=== PATIENT | male | born 1945 | race Caucasian/White ===

== ENCOUNTER 2021-11-16 14:17 | Outpatient (CLI) | payer MEDICARE, SELFPAY ==
--- NOTE | ~2021-11-16 | XR_ITS ---
XR shoulder LT min 2V DATE: 11/16/2021 14:50 INDICATION: Left shoulder pain TECHNIQUE: 4 views COMPARISON: None FINDINGS: No fracture or dislocation, periosteal reaction or bone destruction or abnormal soft tissue calcification. Normal alignment at the acromioclavicular and glenohumeral joints. Degenerative spurr ing of the thoracic spine. Aortic arch calcification. IMPRESSION: No significant abnormality of the left shoulder Reviewed, dictated and finalized at location A. 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
--- NOTE | ~2021-11-16 | XR_ITS ---
XR chest 2V DATE: 11/16/2021 14:50 INDICATION: Dyspnea. Left shoulder pain. TECHNIQUE: PA and lateral views COMPARISON: 09/29/2014 2 view chest FINDINGS: Normal heart size. Aortic calcification and mild unfolding. No hilar or mediastinal enlarge ment. No pulmonary infiltrate or consolidation, pleural effusion or pulmonary vascular congestion or pneumo thorax. There is degenerative spurring and mild dextro scoliosis of the thoracic spine. Diffuse osteopenia. IMPRESSION: No active cardiopulmonary disease Aortic atherosclerosis Reviewed, dictated and finalized at location A. 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
== END 2021-11-16 14:18 | disposition home or self-care (01) ==
PROVIDERS: PCP Internal Medicine; Visit Provider Internal Medicine
DX: R06.00 Dyspnea, unspecified (principal); M25.512 Pain in left shoulder
CPT/HCPCS: 71046; 73030

== ENCOUNTER 2024-04-30 10:21 | Outpatient (NON) | payer MEDICARE, SELFPAY ==
[2024-04-30 10:31] LABS: Hematocrit 37.7 % (37.0-46.0); Hemoglobin 13.5 g/dL (12.4-15.3); Mean Corpuscular HGB Conc 35.8 g/dL (32-36); Mean Corpuscular Hemoglobin 30.2 pg (27.0-31.0); Mean Corpuscular Volume 84.3 fL (78.0-102.0); Mean Platelet Volume 11.3 fl (8.7-11.0); Platelet Count Result 179 K/mm3 (150-420); Red Blood Count 4.47 M/mm3 (4.70-6.10); Red Cell Distribution Width 12.6 % (11.6-14.4); White Blood Count 8.7 K/mm3 (4.8-10.8)
[2024-04-30 10:53] LABS: Alanine Aminotransferase 26 U/L (16-63); Albumin Level 4.3 g/dL (3.4-5.0); Alkaline Phosphatase 65 U/L (46-116); Anion Gap 12 mmol/L (4-12); Aspartate Amino Transferase 29 U/L (15-37); Bilirubin,Total 1.1 mg/dL (0.00-1.00); Blood Urea Nitrogen 10 mg/dL (7-18); Calcium 9.4 mg/dL (8.5-10.1); Carbon Dioxide 26 mmol/L (21-32); Chloride 100 mmol/L (98-108); Creatine Kinase 471 U/L (39-308); Estimated Glomerular Filt Rate 56; Glucose 263 mg/dL (70-99); NT Pro B Type Natriuretic Pept 1003 pg/mL (0-450); Osmolality Calculated 294 mOsm/kg (285-295); Potassium 3.7 mmol/L (3.5-5.1); Sodium 138 mmol/L (136-145); Total Protein 7.9 g/dL (6.4-8.2); Troponin I 6.8 ng/L (0.00-60.4)
== END 2024-04-30 10:22 | disposition home or self-care (01) ==
LOC: CHSLAB 10:24
PROVIDERS: Visit Provider Internal Medicine
DX: R07.9 Chest pain, unspecified (principal); R06.00 Dyspnea, unspecified
CPT/HCPCS: 36415; 80053; 82550; 82553; 83880; 84484; 85027

== ENCOUNTER 2025-01-05 11:31 | Inpatient (IN) | payer MEDICARE, SELFPAY ==
[2025-01-05] VITALS (7 sets, daily range): BP systolic 172–178; BP diastolic 74–94; PULSE 79–88; RESP 16–20; TEMP 36.6–36.8; O2SAT 97–98; BMI 23.4
--- NOTE | ~2025-01-05 | CT_ITS ---
EXAMINATION: CT brain wo con DATE: 01/05/2025 12:40 INDICATION: Altered mental status. TECHNIQUE: Computed tomography (CT) of the head was performed without intravenous contrast. The mA wa s adjusted according to patient size. Iterative reconstruction technique was employed. The dose-lengt h product was 605.33 mGy-cm. COMPARISON: None FINDINGS: There is no intracranial hemorrhage, acute infarction, or abnormal intracranial mass lesion . The ventricles are normal in size. The orbits are normal. There is mild mucosal thickening in the p aranasal sinuses. The mastoid air cells are normal. IMPRESSION: 1. Normal brain. Reviewed, dictated and finalized at location B. IMPRESSION: 1. Normal brain.
--- NOTE | 2025-01-05 11:38 | ED_ITS ---
HPI - Altered Mental Status General Chief Complaint: Altered Mental Status Stated Complaint: altered mental status Time Seen by Provider: 01/05/25 11:38 Source: family () Mode of arrival: ambulatory Limitations: altered mental status History of Present Illness HPI narrative: 79 year old male is brought to the Emergency Department by . states patient last known well was yesterday morning. She left to go OOT and when she returned last evening he had not taken his medication and does not appear to have eaten anything. Patient is oriented to self, otherwise confused. states he is NIDDM and takes Oxycontin regularly for back pain. States it appears he has not taken any off his medications. She states they do not monitor his blood glucose at home. Patient denies pain. states he vomited once and had diarrhea recently. MD complaint: altered mental status Onset (ago): day(s) (1) Timing confirmed by: spouse Severity: moderate Consistency of symptoms: constant Context: diabetes Associated symptoms: denies other symptoms Related Data Home Medications ?Medication ?Instructions ?Recorded ?Confirmed ?Last Taken ?Type alprazolam 0.25 mg tablet 0.25 mg PO BID PRN anxiety 01/05/25 01/05/25 Unknown History aripiprazole 5 mg tablet 5 mg PO HS 01/05/25 01/05/25 Unknown History atorvastatin 40 mg tablet 40 mg PO DAILY 01/05/25 01/05/25 Unknown History hydroxyzine HCl 25 mg tablet 25 mg PO TID 01/05/25 01/05/25 Unknown History metformin 500 mg tablet,extended 500 mg PO BID 01/05/25 01/05/25 Unknown History release 24 hr ondansetron HCl 4 mg tablet 4 mg PO TID PRN nausea and vomiting 01/05/25 01/05/25 Unknown History oxycodone-acetaminophen 10 mg-325 1 tablet PO QID PRN pain 01/05/25 01/05/25 Unknown History mg tablet pantoprazole 40 mg tablet,delayed 40 mg PO DAILY 01/05/25 01/05/25 Unknown History release pregabalin 200 mg capsule 200 mg PO TID 01/05/25 01/05/25 Unknown History propranolol 60 mg capsule,24 60 mg PO HS 01/05/25 01/05/25 Unknown History hr,extended release temazepam 15 mg capsule 15 mg PO HS PRN sleep 01/05/25 01/05/25 Unknown History Allergies Allergy/AdvReac Type Severity Reaction Status Date / Time atenolol Allergy Unknown Unknown Verified 01/05/25 12:29 fluoxetine Allergy Unknown Unknown Verified 01/05/25 12:29 meloxicam Allergy Unknown Unknown Verified 01/05/25 12:29 nortriptyline Allergy Unknown Unknown Verified 01/05/25 12:29 omeprazole Allergy Unknown Unknown Verified 01/05/25 12:29 Review of Systems 2 Review of Systems: All systems reviewed & are unremarkable except as noted in HPI and below ROS unobtainable: Yes unobtainable due to mental status (ROS unreliable due to mental status) Constitutional: Constitutional: Reports as per HPI, Denies chills, Denies fever(s) and Denies weakness Eyes: Eyes: Reports as per HPI, Denies change in vision and Denies photophobia ENT: Reports system reviewed and no additional complaints, except as documented Cardiovascular: Cardiovascular: Reports as per HPI and Denies chest pain Respiratory: Respiratory: Reports as per HPI, Denies cough and Denies dyspnea Gastrointestinal: Gastrointestinal: Reports as per HPI, Reports diarrhea and Reports vomiting Genitourinary: Genitourinary: Reports no additional male genitourinary complaints and Denies dysuria Musculoskeletal: Musculoskeletal: Reports no additional musculoskeletal complaints Integumentary/Breasts: Skin/Breast: Reports system reviewed and no additional complaints, except as docu Neurologic: Reports system reviewed and no additional complaints, except as documented, Reports confusion and Denies focal weakness Psychiatric: Psychiatric: Reports no additional psychiatric complaints Endocrine: Endocrine: Reports no additional endocrine complaints Hematologic/Lymphatic: Hematologic/Lymphatic: Reports no additional hematologic/lymphatic complaints Allergic/Immunologic: Allergic/Immunologic: Reports no additional allergic/immunologic complaints [facility] Family History Family History Father Diabetes mellitus Hypertension Family history of arthritis Family history of malignant neoplasm Family history of lung cancer Mother Family history of diabetes mellitus in first degree relative Family history of cardiovascular disease Sibling Patient's sister is Social History Social History Smoking packs per day: 1 Smoking cigarettes per day: 20.0 Years smoked: 40 Smoking pack-years: 40.00 Smoking status: Former smoker Tobacco type: cigarettes Second hand tobacco smoke exposure: No Smoking end date: 01/05/05 Alcohol intake: never Substance use: never Substance use type: does not use Spiritual care concerns: No Exam 2 Const: General: no acute distress, alert and confusion Nutritional Appearance: well nourished Limitations: altered mental status Other: oriented to self HENMT: Head: normal to inspection Ears: external ears normal F edward/Nose/Sinus: Normal external nose present Face and sinus: normal facial exam Mouth: Yes Normal oral and palatal mucosa present Teeth and gingiva: dentition normal Throat: posterior oropharynx normal Eyes: Conjunctivae: conjunctivae normal Pupils: Equal, round and reactive pupils present EOM: EOMs intact bilaterally Direct Ophthalmoscopy: no photophobia Neck: Neck: normal visual inspection and no meningeal signs Chest: Chest palpation & inspection: normal inspection of the chest and no tenderness Resp: Effort & Inspection: normal respiratory effort Auscultation: clear to auscultation bilaterally Cardio: Rate: regular rate Rhythm: regular rhythm Heart sounds: Murmur heart sound present GI: Inspection: non-distended GI Palp: Yes Soft to palpation, No Tenderness to palpation present (GI), No Guarding due to palpation present (GI) and No Palpable mass present Auscultation: normal bowel sounds : General: Yes bladder normal to palpation Back/Spine/Pelvis: Back: no CVA tenderness Skin: General skin exam: normal color Rashes: no rashes Wounds: no wounds Neuro: General: moves all extremities, no meningeal signs, no focal motor deficits and CN's II-XI intact bilaterally Cranial nerves: Yes Nystagmus not present Speech: normal speech Gait exam (Neuro): Normal gait present O ther: oriented x 1 Extrem: General: normal to inspection and no clubbing, cyanosis or edema Course Course Emergency Course: 79 y/o male is brought to the ED by with AMS. LKW 8 am yesterday. PE: oriented to self, o/w no focal deficit. 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 NS w/o. (1415) Discussed with Geovani Pemberton. Will admit. Vital Signs Vital signs: Vital Signs Temperature 36.8 C 01/05/25 11:34 Pulse Rate 88 01/05/25 11:34 Respiratory Rate 16 01/05/25 11:34 Blood Pressure 178/94 H 01/05/25 11:34 Pulse Oximetry 97 01/05/25 11:34 Oxygen Delivery Room Air 01/05/25 11:34 Temperature 36.6 C 01/05/25 16:00 Pulse Rate 79 01/05/25 16:00 Respiratory Rate 18 01/05/25 16:00 Blood Pressure 176/74 H 01/05/25 16:00 Pulse Oximetry 98 01/05/25 16:00 Oxygen Delivery Room Air 01/05/25 16:00 MDM - Altered Mental Status Lab Data 01/05/25 12:08 01/05/25 14:43 Labs: Lab Results 01/05/25 01/05/25 01/05/25 Range/Units 11:59 12:00 12:08 WBC 10.2 (4.8-10.8) K/mm3 RBC 4.72 (4.70-6.10) M/mm3 Hgb 13.8 (12.4-15.3) g/dL Hct 39.8 (37.0-46.0) % MCV 84.3 (78.0-102.0) fL MCH 29.2 (27.0-31.0) pg MCHC 34.7 (32-36) g/dL RDW 13.2 (11.6-14.4) % Plt Count 282 (150-420) K/mm3 MPV 10.3 (8.7-11.0) fl Immature Gran % (Auto) 0.4 H (0.0-0.0) % Neut % (Auto) 77.1 H (50.0-70.0) % Lymph % (Auto) 14.4 L (18.0-42.0) % Leon % (Auto) 7.5 (2.0-11.0) % Eos % (Auto) 0.3 L (1.0-6.0) % Baso % (Auto) 0.3 (0.0-1.0) % Lymph # (Auto) 1.47 (1.10-4.50) K/mm3 Leon # (Auto) 0.76 (0.10-0.90) K/mm3 Eos # (Auto) 0.03 (0.02-0.50) K/mm3 Baso # (Auto) 0.03 (0.00-0.10) K/mm3 Abs Immat Gran (auto) 0.04 H (0.00-0.00) K/mm3 Absolute Neuts (auto) 7.86 H (1.70-7.20) K/mm3 Absolute Nucleated RBC 0.00 (0.00-0.00) K/mm3 Nucleated RBC % 0.0 (0-0.0) % Methemoglobin (0-1.5) % Sodium 142 (136-145) mmol/L Potassium 3.5 (3.5-5.1) mmol/L Chloride 102 (98-108) mmol/L Carbon Dioxide 21 (21-32) mmol/L Anion Gap 19 H (4-12) mmol/L BUN 16 (7-18) mg/dL Creatinine 1.44 H (0.70-1.30) mg/dL Estim Creat Clear Calc 42 ml/min Estimated GFR 47 L (59 - ) Glucose 375 H (70-99) mg/dL Hemoglobin A1c 8.4 H (<5.7) % Calculated Osmolality 310 H (285-295) mOsm/kg Lactic Acid 4.0 H (0.4-2.0) mmol/L Calcium 9.8 (8.5-10.1) mg/dL Total Bilirubin 1.3 H (0.00-1.00) mg/dL AST 19 (15-37) U/L ALT 26 (16-63) U/L Alkaline Phosphatase 98 (46-116) U/L Troponin I 9.2 (0.00-60.4) ng/L Total Protein 8.2 (6.4-8.2) g/dL Albumin 4.4 (3.4-5.0) g/dL Urine Color Yellow (Yellow) Urine Appearance Clear (Clear) Urine pH 5.5 (5.0-8.0) Ur Specific [place] 1.025 H (1.010-1.020) Urine Protein 1+ H (Negative) Urine Glucose (UA) Negative (Negative) Urine Ketones 2+ H (Negative) Ur Blood (Man) 1+ H (Negative) Urine Nitrate Negative (Negative) Urine Bilirubin Negative (Negative) Urine Urobilinogen 0.2 (0.2-1.0) mg/dL Ur Leukocyte Esterase Negative (Negative) Urine RBC 6-10 H (0-2) /hpf Urine WBC 4-6 H (0-3) /hpf Urine Bacteria Rare (None) /hpf Urine Opiates Screen Negative (Negative) Urine Methadone Screen Negative (Negative) Ur Barbiturates Screen Negative (Negative) Ur Phencyclidine Scrn Negative (Negative) Ur Amphetamine Screen Negative (Negative) U Benzodiazepines Scrn Negative (Negative) Urine Cocaine Screen Negative (Negative) U Cannabinoids Screen Negative (Negative) Influenza A (RT-PCR) (Negative) Influenza B (RT-PCR) (Negative) RSV (RT-PCR) (Negative) SARS-CoV-2 RNA (RT-PCR) (Negative) 01/05/25 01/05/25 Range/Units 12:09 13:31 WBC (4.8-10.8) K/mm3 RBC (4.70-6.10) M/mm3 Hgb (12.4-15.3) g/dL Hct (37.0-46.0) % MCV (78.0-102.0) fL MCH (27.0-31.0) pg MCHC (32-36) g/dL RDW (11.6-14.4) % Plt Count (150-420) K/mm3 MPV (8.7-11.0) fl Immature Gran % (Auto) (0.0-0.0) % Neut % (Auto) (50.0-70.0) % Lymph % (Auto) (18.0-42.0) % Leon % (Auto) (2.0-11.0) % Eos % (Auto) (1.0-6.0) % Baso % (Auto) (0.0-1.0) % Lymph # (Auto) (1.10-4.50) K/mm3 Leon # (Auto) (0.10-0.90) K/mm3 Eos # (Auto) (0.02-0.50) K/mm3 Baso # (Auto) (0.00-0.10) K/mm3 Abs Immat Gran (auto) (0.00-0.00) K/mm3 Absolute Neuts (auto) (1.70-7.20) K/mm3 Absolute Nucleated RBC (0.00-0.00) K/mm3 Nucleated RBC % (0-0.0) % Methemoglobin 0.2 (0-1.5) % Sodium (136-145) mmol/L Potassium (3.5-5.1) mmol/L Chloride (98-108) mmol/L Carbon Dioxide (21-32) mmol/L Anion Gap (4-12) mmol/L BUN (7-18) mg/dL Creatinine (0.70-1.30) mg/dL Estim Creat Clear Calc ml/min Estimated GFR (59 - ) Glucose (70-99) mg/dL Hemoglobin A1c (<5.7) % Calculated Osmolality (285-295) mOsm/kg Lactic Acid (0.4-2.0) mmol/L Calcium (8.5-10.1) mg/dL Total Bilirubin (0.00-1.00) mg/dL AST (15-37) U/L ALT (16-63) U/L Alkaline Phosphatase (46-116) U/L Troponin I (0.00-60.4) ng/L Total Protein (6.4-8.2) g/dL Albumin (3.4-5.0) g/dL Urine Color (Yellow) Urine Appearance (Clear) Urine pH (5.0-8.0) Ur Specific [place] (1.010-1.020) Urine Protein (Negative) Urine Glucose (UA) (Negative) Urine Ketones (Negative) Ur Blood (Man) (Negative) Urine Nitrate (Negative) Urine Bilirubin (Negative) Urine Urobilinogen (0.2-1.0) mg/dL Ur Leukocyte Esterase (Negative) Urine RBC (0-2) /hpf Urine WBC (0-3) /hpf Urine Bacteria (None) /hpf Urine Opiates Screen (Negative) Urine Methadone Screen (Negative) Ur Barbiturates Screen (Negative) Ur Phencyclidine Scrn (Negative) Ur Amphetamine Screen (Negative) U Benzodiazepines Scrn (Negative) Urine Cocaine Screen (Negative) U Cannabinoids Screen (Negative) Influenza A (RT-PCR) Negative (Negative) Influenza B (RT-PCR) Negative (Negative) RSV (RT-PCR) Negative (Negative) SARS-CoV-2 RNA (RT-PCR) Negative (Negative) ABG Data ABG results: 01/05/25 13:31 Puncture Site Left radial ABG pH 7.49 H ABG pCO2 26.1 L ABG pO2 88.5 H ABG PO2/FiO2 Ratio Not Reportable ABG HCO3 19.5 L ABG O2 Saturation 96.3 ABG O2 Content 18.6 ABG Base Excess -2.3 L A-a Gradient Not Reportable Oxyhemoglobin 95.7 Carboxyhemoglobin 0.4 Reduced Hemoglobin 3.7 H O2 Delivery Device Room air O2 Liters/Min 0.0 Discharge Plan Discharge Clinical Impression: Hyperosmolar hyperglycemic state (HHS), Altered mental status, Acidosis, lactic Patient Disposition: [facility] Condition: Stable Time of Disposition: 14:26 Quality Stroke Date of last known normal: 01/04/25 Time of last known normal: 08:00 Stroke Scale Stroke Scale 1: 1a Level of consciousness: alert-0 1b Level of consciousness questions: answers none correctly-2 1c Level of consciousness commands: obeys both correctly-0 2 Best gaze: normal-0 3 Visual: no visual loss-0 4 Facial palsy: normal-0 5a Motor: left arm: no drift-0 5b Motor: right arm: no drift-0 6a Motor: left leg: no drift-0 6b Motor: right leg: no drift-0 7 Limb ataxia: absent-0 8 Sensory: normal-0 9 Best language: no aphasia-0 10 Dysarthria: normal-0 11 Extinction and inattention: no abnormality-0 Level:: 2
--- NOTE | 2025-01-05 11:42 | ECG_ITS ---
Test Date: 2025-01-05 12:04:11 Measurements Intervals [place] Rate: 86 P: 63 VA: 146 QRS: 64 QRSD: 86 T: 27 QT: 396 QTc: 474 Interpretive Statements SINUS RHYTHM WITH OCCASIONAL SUPRAVENTRICULAR PREMATURE COMPLEXES NONSPECIFIC T-WAVE ABNORMALITY No previous ECG available for comparison Electronically Signed On 01-05-2025 14:03:08 CDT by Ramón Harris M.D.
[2025-01-05 12:13] LABS: Basophils Absolute Auto 0.03 K/mm3 (0.00-0.10); Basophils Percent Auto 0.3 % (0.0-1.0); Eosinophils Absolute Auto 0.03 K/mm3 (0.02-0.50); Eosinophils Percent Auto 0.3 % (1.0-6.0); Hematocrit 39.8 % (37.0-46.0); Hemoglobin 13.8 g/dL (12.4-15.3); Immature Granulocyte Absolute 0.04 K/mm3 (0.00-0.00); Immature Granulocyte Percent A 0.4 % (0.0-0.0); Lymphocytes Absolute Auto 1.47 K/mm3 (1.10-4.50); Lymphocytes Percent Auto 14.4 % (18.0-42.0); Mean Corpuscular HGB Conc 34.7 g/dL (32-36); Mean Corpuscular Hemoglobin 29.2 pg (27.0-31.0); Mean Corpuscular Volume 84.3 fL (78.0-102.0); Mean Platelet Volume 10.3 fl (8.7-11.0); Monocytes Absolute Auto 0.76 K/mm3 (0.10-0.90); Monocytes Percent Auto 7.5 % (2.0-11.0); Neutrophils Absolute Auto 7.86 K/mm3 (1.70-7.20); Neutrophils Percent Auto 77.1 % (50.0-70.0); Platelet Count Result 282 K/mm3 (150-420); Red Blood Count 4.72 M/mm3 (4.70-6.10); Red Cell Distribution Width 13.2 % (11.6-14.4); White Blood Count 10.2 K/mm3 (4.8-10.8)
--- NOTE | 2025-01-05 12:16 | PC.NURSE ---
Covid culture sent to lab
[2025-01-05 12:21] LABS: Add Urine Microscopic? YES; Appearance Urine Clear (Clear); Bilirubin Urine Negative (Negative); Blood Urine 1+ (Negative); Color Urine Yellow (Yellow); Glucose Urine UA Negative (Negative); Ketones Urine 2+ (Negative); Leukocyte Esterase Ur Negative (Negative); Nitrate Urine Negative (Negative); Protein Urine 1+ (Negative); Specific Grav Ur 1.025 (1.010-1.020); Urobilinogen Urine 0.2 mg/dL (0.2-1.0); pH Urine 5.5 (5.0-8.0)
[2025-01-05 12:25] LABS: Bacteria Urine Rare /hpf
[2025-01-05 12:37] LABS: Amphetamine Screen Urine Negative (Negative); Barbiturate Screen Urine Negative (Negative); Benzodiazepines Screen Urine Negative (Negative); Cannabinoid Screen Urine Negative (Negative); Cocaine Screen Urine Negative (Negative); Methadone Screen Urine Negative (Negative); Opiate Screen Urine Negative (Negative); Phencyclidine Screen Urine Negative (Negative)
[2025-01-05 12:48] LABS: Alanine Aminotransferase 26 U/L (16-63); Albumin Level 4.4 g/dL (3.4-5.0); Alkaline Phosphatase 98 U/L (46-116); Anion Gap 19 mmol/L (4-12); Aspartate Amino Transferase 19 U/L (15-37); Bilirubin,Total 1.3 mg/dL (0.00-1.00); Blood Urea Nitrogen 16 mg/dL (7-18); Calcium 9.8 mg/dL (8.5-10.1); Carbon Dioxide 21 mmol/L (21-32); Chloride 102 mmol/L (98-108); Estimated CRCL calculation 42 ml/min; Estimated Glomerular Filt Rate 47; Glucose 375 mg/dL (70-99); Osmolality Calculated 310 mOsm/kg (285-295); Potassium 3.5 mmol/L (3.5-5.1); Sodium 142 mmol/L (136-145); Total Protein 8.2 g/dL (6.4-8.2); Troponin I 9.2 ng/L (0.00-60.4)
[2025-01-05 13:27] LABS: Influenza A QL RT-PCR Negative (Negative); Influenza B QL RT-PCR Negative (Negative); RSV RNA, RT-PCR Negative (Negative); SARS-CoV-2 RNA PCR Negative (Negative)
[2025-01-05] MEDS: SODIUM CHLORIDE 0.9% IV 1,000 ML 999 ML IV CONT (13:28)
[2025-01-05 13:34] LABS: Base Excess ABG -2.3 mmol/L (0-2); Carboxyhemoglobin 0.4 % (0-1.5); HCO3 ABG 19.5 mmol/L (23-29); Methemoglobin ABG 0.2 % (0-1.5); Oxygen Content ABG 18.6 %vol (16.0-22.0); Oxygen Saturation ABG 96.3 % (95-97); Oxyhemoglobin 95.7 % (94-100); PCO2 ABG 26.1 mmHg (35-45); PO2 ABG 88.5 mmHg (75-85); Reduced Hemoglobin 3.7 % (0-1.5); pH ABG 7.49 (7.35-7.45)
[2025-01-05 13:35] LABS: Modified Allen's Test Pass; Site Drawn LEFT RADIAL
[2025-01-05 13:36] LABS: Device ROOM AIR
--- OUTSIDE RECORDS SUMMARY | 2025-01-05 13:44 | XMS_ITS | Encounter Summary ---
Author Organization [facility] Address [facility] [place] [address] Care Team Providers Care Retail Loss Prevention Investigator Name Role Phone Fam Miller MD Primary Care Provider [phone] Martha Rodriguez APRN, DIRECTOR OF GLOBAL TALENT-C Unavailable Daren Bailon MD Unavailable Unavailabl e Arin Gamez MD Unavailable [phone] Kellie Fermin ANP-BC Unavailable [phone] Fredrick Camarena MD Unavailable [phone] Encounter Details Date Type Department Care Team (Late Contact Info) Description 02/14/2023 Abstract [facility] [address] [place] [address] Daren Bailon MD Social History Tobacco Use Types Packs/Day Years Used Date Smoking Tobacco: Former Smokeless Tobacco: Never Alcohol Use Standard Drinks/Week Comments Yes 0 (1 standard drink = 0.6 oz pur e alcohol) 1 drink/per week Sex and Gender Information Value Date Recorded Sex Assigned at Not on file Legal Sex Male 9:20 PM CDT Gender Identity Not on file Sexual Orientation Not on file COVID-19 Exposure Response Date Recorded In the last 10 days, have yo u been in contact with someone who was confirmed or suspected to have Coronavirus/COVID-19? No / Unsure 02/13/2023 7:01 AM CDT documented as of this encounter Plan of Treatment Upcoming Encounters Date Type Department Care Team (Late Contact Info) Description 06/16/2025 11:15 AM CDT Office Visit [facility] [place] [address] Fredrick Camarena MD [address], [address] [address] documented as of this encounter Visit Diagnoses Not on filedocumented in this encounter Care Teams Retail Loss Prevention Investigator Relationship Specialty Start Date End Date Fam Miller MD [address] [place] [address] PCP - General INTERNAL MEDICINE 12/25/22 Martha Rodriguez APRN, DIRECTOR OF GLOBAL TALENT-C [address] [phone] [facility] [employer] NURSE PRACTITIONER 12/25/22 02/13/24 Daren Bailon MD [address] [phone] [facility] [employer] CARDIOVASCULAR DISEASE 12/25/22 02/13/24 Arin Gamez MD [address] [phone] INTERVENTIONAL CARDIOLOGY 02/14/24 01/02/25 Kellie Fermin, [facility]- [address] [place] [id number] Nurse Practitioner NURSE PRACTITIONER ADULT HEALTH 02/14/24 Fredrick Camarena MD [address], [address] [address] Physician INTERVENTIONAL CARDIOLOGY 01/02/25 documented as of this encounter
--- OUTSIDE RECORDS SUMMARY | 2025-01-05 13:45 | XMS_ITS | Clinical Summary ---
Author Organization [facility] Address [facility] [place] [address] Care Team Providers Care Early Childhood Aide Classroom Name Role Phone Fam Miller MD Primary Care Provider [phone] Kellie Fermin ANP- Unavailable [phone] Fredrick Camarena MD Unavailable [phone] Allergies Active Allergy Reactions Criticality Noted Date Comments Fluoxetine Nausea Only 12/27/2022 Meloxicam GI Upset 04/07/2016 Nortriptyline Other (see comment) 04/07/2016 Omeprazole Dizziness 04/07/2016 Medications oxyCODONE-aceta minophen (PERCOCET) 10-325 MG tablet Take 1 tablet by mouth 4 (four) times daily as needed. 07/16/2014 Active temazepam (RESTORIL) 15 MG capsule Take 1 capsule (15 mg total) by mouth nightly as needed for Sleep. Active pantoprazole EC (PROTONIX) 40 MG tablet Take 1 tablet (40 mg total) by mouth daily. Active ondansetron (ZOFRAN) 4 MG tablet Take 1 tablet (4 mg total) by mouth 3 (three) times daily before meals. Active hydrOXYzine (ATARAX) 25 MG tablet Take 1 tablet (25 mg total) by mouth 3 (three) times daily as needed. 12/20/2022 Active metFORMIN ER (GLUCOPHAGE-XR) 500 MG 24 hr tablet Take 1 tablet (500 mg total) by mouth 2 (two) times daily. 11/24/2022 Active gabapentin (NEURONTIN) 300 MG capsule Take 1 capsule (300 mg total) by mouth 3 (three) times daily. 04/17/2023 Active atorvastatin (LIPITOR) 40 MG tablet Take 1 tablet (40 mg total) by mouth daily. 04/25/2024 Active ARIPiprazole (ABILIFY) 2 MG tablet Take 1 tablet (2 mg total) by mouth daily. Active pregabalin (LYRICA) 200 MG capsule Take 1 capsule (200 mg total) by mouth 3 (three) times daily. 05/14/2024 Active erythromycin (ROMYCIN) 5 MG/GM (0.5%) ophthalmic ointment Place into the right eye every 6 (six) hours. 3.5 g 06/06/2024 Active propranolol LA (INDERAL LA) 60 MG 24 hr capsule Take 1 capsule (60 mg total) by mouth nightly at bedtime. 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 02/13/2023 Hyperlipidemia 12/29/2022 Hypertension 12/29/2022 Diabetes ([facility]) 12/29/2022 Encounters Date Type Department Care Team Description 12/17/2024 [facility]phone [place] [facility] [address] [place] [address] Arin Gamez MD Reschedule from Last 3 Months Family History Medical History Relation Comments Lung Cancer Father COPD Mother Diabetes type II Mother Peripheral vascular disease Mother Accidental Sister Relation Status Comments Father (Age 49) Mother (Age 82) Sister Social History Tobacco Use Types Packs/Day Years Used Date Smoking Tobacco: Former Smokeless Tobacco: Never Tobacco Cessation:Counseling Given: Not Answered Alcohol Use Standard Drinks/Week Comments Not Currently 0 (1 standard drink = 0.6 oz pur e alcohol) 1 drink/per week Sex and Gender Information Value Date Recorded Sex Assigned at Not on file Legal Sex Male 9:20 PM CDT Gender Identity Not on file Sexual Orientation Not on file Last Filed Vital Signs Vital Sign Reading Time Taken Comments Blood Pressure 121/74 06/06/2024 3:00 PM CDT Pulse 60 06/06/2024 3:00 PM CDT Temperature 36 C (96.8 F) 06/06/2024 2:14 PM CDT Respiratory Rate 16 06/06/2024 3:00 PM CDT Oxygen Saturation 98% 06/06/2024 3:00 PM CDT Inhaled Oxygen Concentration - - Weight 79.9 kg (176 lb 3.2 oz) 06/06/2024 3:00 P M CDT Height 182.9 cm (6') 06/06/2024 2:14 PM CDT Body Mass Index 23.9 06/06/2024 2:14 PM CDT Plan of Treatment Upcoming Encounters Date Type Department Care Team (Late st Contact Info) Description 06/16/2025 11:15 AM CDT Office Visit [facility] [place] [address] Fredrick Camarena MD [address] [facility] [address] [place], [place] [id number] Health Maintenance Due Date Last Done Comments Kidney Health Evaluation 1945 Diabetes: Retinopathy Eye Exam 1964 Hepatitis C 1964 DTaP, Tdap and Td Vaccines ( 1 - Tdap) 1965 Zoster Vaccines (1 of 2) 1996 Annual Medicare Wellness Visit 2011 Pneumococcal Vaccine: 65+ Years (2 of 2 - PCV) 10/29/2014 10/29/2013 RSV Immunization or 60+ Years (1 - 1-dose 75+ series) 2021 Hemoglobin A1C 02/13/2024 08/14/2023 COVID-19 Vaccine (1 - 2023-2 5 season) 2024 Influenza Adult (#1) 2024 10/29/2013 ASCVD LDL 08/14/2024 08/14/2023, 04/30/2015 Lipid Panel 08/14/2024 08/14/2023, 12/24/2022, 04/30/2015 Meningococcal B Vaccine Aged Out No l onger eligible based on patient's age to complete this topic Meningococcal Vaccine Aged Out No efren yadira eligible based on patient's age to complete this topic RSV Immunizations Under 20 Months Aged Out No longer eligible b ased on patient's age to complete this topic Medical Devices Implanted Type Area High Risk Ob Device Identifier Shelf Expiration Date Model / Serial / Lot Cv Angelicairo 3.0mm X 26mm [place] Mid Lad-02/13/2023 Implanted:01/27 by Fernando Plasencia MD (Quantity not on file) Stent Coronary LAD BIOTRONIK 07/10/2024 [id number] / / [id number] Procedures Procedure Name Priority Date/Time Associated Diagnosis Comments LIPID PANEL Routine 08/14/2023 12:40 PM CDT Right flank pain Back pain Type 2 diabetes mellitus HEMOGLOBIN, GLYCOSYLATED Routine 08/14/2023 12:40 PM CDT Right flank pain Back pain Type 2 diabetes mellitus from Last 3 Months or Most Recently Relevant to Health Maintenance Results * (ABNORMAL) HEMOGLOBIN, GLYCOSYLATED (08/14/2023 12:40 PM CDT) HGB A1C 7.7(H) <5.7 % 08/14/2023 1:30 PM CDT [facility] Comment: 5.7 TO 6.4% INCREASED RISK OF DIABETES > OR = 6.5% CONSISTENT WITH DIABETES PER ADA GUIDELINES ESTIMATED AVG GLUCOSE 174(H) 70 - 140 MG/DL 08/14/2023 1:30 PM CDT [facility] 08/14/2023 12:4 0 PM CDT Fam Miller MD LABORATORY Final Result [id number] [place] [address], * (ABNORMAL) LIPID PANEL (08/14/2023 12:40 PM CDT) CHOLESTEROL 186 <200 MG/DL 08/14/2023 1:11 PM CDT [facility] Comment: THE NATIONAL LIPID ASSOCIATION AND THE NATIONAL CHOLESTEROL EDUCATION PROGRAM (NCEP) HAVE SET THE FOLLOWING GUIDELINES FOR TOTAL CHOLESTEROL IN ADULTS AGES 18 AND UP. DESIRABLE: <200 BORDERLINE HIGH: 200-239 HIGH: > OR = 240 TRIGLYCERIDES 314(H) <150 MG/DL 08/14/2023 1:11 PM CDT [facility] Comment: THE NATIONAL LIPID ASSOCIATION AND THE NATIONAL CHOLESTEROL EDUCATION PROGAM (NCEP) HAVE SET THE FOLLOWING GUIDELINES FOR TRIGLYCERIDES IN ADULTS AGES 18 AND UP. NORMAL: <150 BORDERLINE HIGH: 150 TO 199 HIGH: 200 TO 499 VERY HIGH: >499 HDL 43 >39 MG/DL 08/14/2023 1:11 PM CDT [facility] Comment: THE NATIONAL LIPID ASSOCIATION AND THE NATIONAL CHOLESTEROL EDUCATION PROGAM (NCEP) HAVE SET THE FOLLOWING GUIDELINES FOR HDL CHOLESTEROL IN ADULTS AGES 18 AND UP. MALES: >39 FEMALES: >49 LDL-C 80 <100 MG/DL 08/14/2023 1:11 PM CDT [facility] Comment: THE NATIONAL LIPID ASSOCIATION AND THE NATIONAL CHOLESTEROL EDUCATION PROGAM (NCEP) HAVE SET THE FOLLOWING GUIDELINES FOR LDL CHOLESTEROL IN ADULTS AGES 18 AND UP. DESIRABLE: <100 ABOVE DESIRABLE: 100 TO 129 BORDERLINE HIGH: 130 TO 159 HIGH: 160 TO 189 VERY HIGH: >189 VLDL CALCULATION 63 MG/DL 08/14/20 23 1:11 PM CDT [facility] Comment:REFERENCE RANGE NOT ESTABLISHED CHOL/HDL RATIO 4.3 08/14/2023 1:11 PM CDT [facility] Comment:REFERENCE RANGE NOT ESTABLISHED LDL/HDL 1.9 08/14/2023 1:11 PM CDT [facility] Comment:REFERENCE RANGE NOT ESTABLISHED NON HDL CHOLESTEROL 143 MG/DL 08/14/2023 1:11 PM CDT [facility] Comment:REFERENCE RANGE NOT ESTABLISHED 08/14/2023 12:4 0 PM CDT Fam Miller MD LABORATORY Final Result [facility] [address] [place] [address], from Last 3 Months or Most Recently Relevant to Health Maintenance Insurance MEDICARE Care Teams Early Childhood Aide Classroom Relationship Specialty Start Date End Date Fam Miller MD [address] [place] [phone] PCP - General INTERNAL MEDICINE 12/25/22 Kellie Fermin, [facility]- [address] [place] [id number] Nurse Practitioner NURSE PRACTITIONER ADULT HEALTH 02/14/24 Fredrick Camarena MD [address] [facility] [address] [address] Physician INTERVENTIONAL CARDIOLOGY 01/02/25
--- OUTSIDE RECORDS SUMMARY | 2025-01-05 13:45 | XMS_ITS | Encounter Summary ---
Author Organization [facility] Address [facility] [place] [address] Care Team Providers Care Cylinder Block Hole Reliner Name Role Phone Fam Miller MD Primary Care Provider [phone] Martha Rodriguez APRN, WOOL HAT FLANGER-C Unavailable Daren Bailon MD Unavailable Unavailabl e Arin Gamez MD Unavailable [phone] Kellie Fermin ANP-BC Unavailable [phone] Fredrick Camarena MD Unavailable [phone] Encounter Details Date Type Department Care Team (Late Contact Info) Description 02/07/2023 Hospital Orders Only [place] Pre/Post [address] [place] [address] Daren Bailon MD Social History Tobacco Use [...] suspected to have Coronavirus/COVID-19? No / Unsure 01/22/2023 1:44 PM CDT documented as of this encounter Plan of Treatment Upcoming Encounters Date Type Department Care Team (Late st Contact Info) Description 06/16/2025 11:15 AM CDT Office Visit [facility] [place] [phone] Fredrick Camarena MD [address] , [address] [address] documented as of this encounter Visit Diagnoses Not on filedocumented in this encounter Care Teams Cylinder Block Hole Reliner Relationship Specialty Start Date End Date Fam Miller MD [address] [place] [address] PCP - General INTERNAL MEDICINE 12/25/22 Martha Rodriguez APRN, WOOL HAT FLANGER-C [address] [phone] [place] Heat Treat Furnace Operator NURSE PRACTITIONER 12/25/22 02/13/24 Daren Bailon MD [address] [address] [place] Heat Treat Furnace Operator CARDIOVASCULAR DISEASE 12/25/22 02/13/24 Arin Gamez MD [address] [phone] INTERVENTIONAL CARDIOLOGY 02/14/24 01/02/25 Kellie Fermin, [facility]- [address] [place] [address] Nurse Practitioner NURSE PRACTITIONER ADULT HEALTH 02/14/24 Fredrick Camarena MD [address] , [address] [phone] Physician INTERVENTIONAL CARDIOLOGY 01/02/25 documented as of this encounter
--- OUTSIDE RECORDS SUMMARY | 2025-01-05 13:45 | XMS_ITS | Encounter Summary ---
Author Organization [facility] Address [address] [place] [address] Care Team Providers Care Site Leader Name Role Phone Fam Miller MD Primary Care Provider [phone] Martha Rodriguez APRN, LAW TUTOR-C Unavailable Daren Bailon MD Unavailable Unavailabl e Arin Gamez MD Unavailable [phone] Kellie Fermin ANP-BC Unavailable [phone] Fredrick Camarena MD Unavailable [phone] Encounter Details Date Type Department Care Team (Late Contact Info) Description 04/05/2019 Abstract [facility] CONVERSION [address] [place] [id number] , Generic Conversion, Social History Tobacco Use Types Packs/Day Years Used Date Smoking Tobacco: Former Sex and Gender Information Value Date Recorded Sex Assigned at Not on file Legal Sex Male 9:20 PM CDT Gender Identity Not on file Sexual Orientation Not on file documented as of this encounter Plan of Treatment Upcoming Encounters Date Type Department Care Team (Late Contact Info) Description 06/16/2025 11:15 AM CDT Office Visit [facility] [address] [place] [phone] Fredrick Camarena MD [address] [facility] [address] [place] [address] documented as of this encounter Visit Diagnoses Not on filedocumented in this encounter Care Teams Site Leader Relationship Specialty Start Date End Date Fam Miller MD [address] [place] [address] PCP - General INTERNAL MEDICINE 12/25/22 Martha Rodriguez APRN, LAW TUTOR-C [address] [phone] [place] Senior Safety Support Manager NURSE PRACTITIONER 12/25/22 02/13/24 Daren Bailon MD [address] [address] [place] Senior Safety Support Manager CARDIOVASCULAR DISEASE 12/25/22 02/13/24 Arin Gamez MD [address] [phone] INTERVENTIONAL CARDIOLOGY 02/14/24 01/02/25 Kellie Fermin, [facility] [address] [place] [address] Nurse Practitioner NURSE PRACTITIONER ADULT HEALTH 02/14/24 Fredrick Camarena MD [address] [facility] [address] [place] [address] Physician INTERVENTIONAL CARDIOLOGY 01/02/25 documented as of this encounter
[2025-01-05 14:44] LABS: Hemoglobin A1C 8.4 % (<5.7)
[2025-01-05 15:06] LABS: Anion Gap 15 mmol/L (4-12); Blood Urea Nitrogen 15 mg/dL (7-18); Calcium 9.5 mg/dL (8.5-10.1); Carbon Dioxide 24 mmol/L (21-32); Chloride 103 mmol/L (98-108); Estimated CRCL calculation 47 ml/min; Estimated Glomerular Filt Rate 54; Glucose 357 mg/dL (70-99); Magnesium 1.3 mg/dL (1.8-2.4); Osmolality Calculated 308 mOsm/kg (285-295); Phosphorus 3.8 mg/dL (2.6-4.7); Potassium 3.6 mmol/L (3.5-5.1); Sodium 142 mmol/L (136-145)
[2025-01-05 15:11] LABS: Reflex Lactic Acid Yes or No Add Lactic
[2025-01-05 15:22] LABS: Lactic Acid 3.2 mmol/L (0.4-2.0)
[2025-01-05 15:50] LABS: Glucose Point of Care 347 mg/dl (65-105)
[2025-01-05 16:48] LABS: Glucose Point of Care 363 mg/dl (65-105)
[2025-01-05] MEDS: SODIUM CHLORIDE 0.9% IV 1,000 ML 150 ML IV CONT (16:50)
[2025-01-05] MEDS: INSULIN HUMAN LISPRO (*BKC) 1,000 UNITS/10 ML VIAL SUB-Q (16:55)
--- NOTE | 2025-01-05 17:28 | PC.NURSE ---
Addendum entered by Kirti Rodriguez RN 01/05/25 17:45: Patient arrived to unit at 1440. Original Note: Patient arrived to unit in w/c accompanied by patient's and ED staff. Patient able to transfer 1 assist from w/c to bed. Patient is unable to comprehend education at this time. Patient's educated on visiting hours, use of bed controls, alarms and call light. Blue folder given to patient's . Patient resting in bed at this time with call light within reach.
[2025-01-05] MEDS: LOPERAMIDE HCL 2 MG CAPSULE 4 MG PO (17:34)
[2025-01-05 18:34] LABS: Glucose Point of Care 279 mg/dl (65-105)
[2025-01-05] MEDS: PREGABALIN (*CRX) 100 MG CAPSULE 200 MG PO (18:44)
[2025-01-05 19:23] LABS: Anion Gap 14 mmol/L (4-12); Blood Urea Nitrogen 15 mg/dL (7-18); Calcium 9.5 mg/dL (8.5-10.1); Carbon Dioxide 24 mmol/L (21-32); Chloride 105 mmol/L (98-108); Estimated CRCL calculation 48 ml/min; Estimated Glomerular Filt Rate 56; Glucose 292 mg/dL (70-99); Osmolality Calculated 307 mOsm/kg (285-295); Potassium 3.4 mmol/L (3.5-5.1); Sodium 143 mmol/L (136-145)
[2025-01-05] MEDS: PROPRANOLOL HCL 60 MG CAPSULE CR PO (21:06)
[2025-01-05] MEDS: ARIPiprazole 5 MG TABLET PO (21:07)
[2025-01-05] MEDS: KCL 20 MEQ/D5/0.45% SOD CHL 1,000 ML 150 ML IV CONT (21:07)
[2025-01-05 21:20] LABS: Toxigenic C. Diff NEGATIVE (NEGATIVE)
[2025-01-05 21:22] LABS: Glucose Point of Care 258 mg/dl (65-105)
[2025-01-05] MEDS: INSULIN HUMAN LISPRO (*BKC) 1,000 UNITS/10 ML VIAL 4 UNITS SUB-Q (22:34)
[2025-01-05] MEDS: MAGNESIUM SULF 4 GM/WATER100ML 4 GM/100 ML BAG IVPB (22:37)
[2025-01-05 22:56] LABS: Anion Gap 12 mmol/L (4-12); Blood Urea Nitrogen 15 mg/dL (7-18); Calcium 8.3 mg/dL (8.5-10.1); Carbon Dioxide 24 mmol/L (21-32); Chloride 107 mmol/L (98-108); Estimated CRCL calculation 57 ml/min; Estimated Glomerular Filt Rate > 60; Glucose 322 mg/dL (70-99); Osmolality Calculated 308 mOsm/kg (285-295); Potassium 3.3 mmol/L (3.5-5.1); Sodium 143 mmol/L (136-145)
[2025-01-05 23:05] LABS: Lactic Acid Reflex 1.3 mmol/L (0.4-2.0)
[2025-01-06] VITALS: BP 129/72; PULSE 81; RESP 16; TEMP 36.9; O2SAT 95
[2025-01-06 03:18] LABS: Anion Gap 11 mmol/L (4-12); Blood Urea Nitrogen 15 mg/dL (7-18); Calcium 8.5 mg/dL (8.5-10.1); Carbon Dioxide 24 mmol/L (21-32); Chloride 107 mmol/L (98-108); Estimated CRCL calculation 54 ml/min; Estimated Glomerular Filt Rate > 60; Glucose 307 mg/dL (70-99); Osmolality Calculated 306 mOsm/kg (285-295); Potassium 3.5 mmol/L (3.5-5.1); Sodium 142 mmol/L (136-145)
[2025-01-06] MEDS: ALPRAZolam (*CRX) 0.25 MG TABLET PO (04:03)
[2025-01-06] MEDS: KCL 20 MEQ/D5/0.45% SOD CHL 1,000 ML 150 ML IV CONT ×3 (04:15→17:15)
[2025-01-06 06:47] LABS: Anion Gap 11 mmol/L (4-12); Blood Urea Nitrogen 14 mg/dL (7-18); Calcium 8.4 mg/dL (8.5-10.1); Carbon Dioxide 25 mmol/L (21-32); Chloride 104 mmol/L (98-108); Estimated CRCL calculation 55 ml/min; Estimated Glomerular Filt Rate > 60; Glucose 323 mg/dL (70-99); Osmolality Calculated 302 mOsm/kg (285-295); Potassium 3.6 mmol/L (3.5-5.1); Sodium 140 mmol/L (136-145)
[2025-01-06 07:33] LABS: Glucose Point of Care 361 mg/dl (65-105)
[2025-01-06 07:56] VITALS: BP 139/75; PULSE 66; PULSE 69; RESP 16; TEMP 36.7; O2SAT 97
--- NOTE | 2025-01-06 08:02 | P.HP_ITS ---
H&P: HPI History of Present Illness Date/Time: 01/06/25 08:02 Chief Complaint: alter mental status Narrative: This is a 79 year who is unable to give me his history he is not orientated or he is not following commands. Patient CT scan is normal and labs are trending down. I reviewed patient medication and he is on a lot of sedative medication in which I have not added back yet. We will continue to monitor. according to notes patient was home alone for the weekend while was out of town and when she returned patient was confused. Patient blood sugars are elevated although he is not in dka. Patient shows no signs of pain. I called who is a poor historian and she does not understand the medication that the patient is on and does not know why he is on them. Patient denies history of dementia or bipolar and she is not sure what he really he has accept for heart stents and states the customer marketing assistant states his heart is good. HHS replenish fluids and electrolytes and monitor blood sugar and monitor patient. Review of Systems Review of Systems: confusion, hyperosmola All systems reviewed & are unremarkable except as noted in HPI and below PMFSH Family History Family History Father Diabetes mellitus Hypertension Family history of arthritis Family history of malignant neoplasm Family history of lung cancer Mother Family history of diabetes mellitus in first degree relative Family history of cardiovascular disease Sibling Patient's sister is Social History Social History Smoking packs per day: 1 Smoking cigarettes per day: 20.0 Years smoked: 40 Smoking pack-years: 40.00 Smoking status: Former smoker Tobacco type: cigarettes Second hand tobacco smoke exposure: No Smoking end date: 01/05/05 Alcohol intake: never Substance use: never Substance use type: does not use Spiritual care concerns: No Meds Home Medications and Allergies Home Medications ?Medication ?Instructions ?Recorded ?Confirmed ?Type alprazolam 0.25 mg tablet 0.25 mg PO BID PRN anxiety 01/05/25 01/05/25 History aripiprazole 5 mg tablet 5 mg PO HS 01/05/25 01/05/25 History atorvastatin 40 mg tablet 40 mg PO DAILY 01/05/25 01/05/25 History hydroxyzine HCl 25 mg tablet 25 mg PO TID 01/05/25 01/05/25 History metformin 500 mg tablet,extended 500 mg PO BID 01/05/25 01/05/25 History release 24 hr ondansetron HCl 4 mg tablet 4 mg PO TID PRN nausea and vomiting 01/05/25 01/05/25 History oxycodone-acetaminophen 10 mg-325 1 tablet PO QID PRN pain 01/05/25 01/05/25 History mg tablet pantoprazole 40 mg tablet,delayed 40 mg PO DAILY 01/05/25 01/05/25 History release pregabalin 200 mg capsule 200 mg PO TID 01/05/25 01/05/25 History propranolol 60 mg capsule,24 60 mg PO HS 01/05/25 01/05/25 History hr,extended release temazepam 15 mg capsule 15 mg PO HS PRN sleep 01/05/25 01/05/25 History Allergies Allergy/AdvReac Type Severity Reaction Status Date / Time atenolol Allergy Unknown Unknown Verified 01/05/25 12:29 fluoxetine Allergy Unknown Unknown Verified 01/05/25 12:29 meloxicam Allergy Unknown Unknown Verified 01/05/25 12:29 nortriptyline Allergy Unknown Unknown Verified 01/05/25 12:29 omeprazole Allergy Unknown Unknown Verified 01/05/25 12:29 Vital Signs Vital Signs - 24 hr 01/05/25 11:34 01/05/25 11:36 01/05/25 11:42 Temperature 98.2 F Pulse Rate 88 Respiratory Rate 16 Blood Pressure 178/94 H Pulse Oximetry 97 97 97 Oxygen Delivery Room Air Room Air 01/05/25 13:30 01/05/25 15:54 01/05/25 16:00 Temperature 97.9 F 97.9 F Pulse Rate 84 79 79 Respiratory Rate 20 18 18 Blood Pressure 172/90 H 176/74 H 176/74 H Pulse Oximetry 97 98 98 Oxygen Delivery Room Air Room Air Room Air 01/05/25 21:06 01/06/25 00:00 Temperature 98.5 F Pulse Rate 82 81 Respiratory Rate 16 Blood Pressure 129/72 Pulse Oximetry 95 Oxygen Delivery Room Air Exam Const: General: no acute distress HENMT: Mouth: Yes moist mucous membranes Eyes: General: appearance normal, both eyes and all related structures Resp: Effort & Inspection: normal respiratory effort Auscultation: clear to auscultation bilaterally Cardio: Rate: regular rate GI: GI Palp: Yes Soft to palpation Skin: General skin exam: normal color Neuro: Speech: normal speech (slow and not speaing most of the time ) Extrem: General: normal to inspection Psych: Other: delayed or no malaise H&P: Results Labs Labs: Short CBC 01/05/25 Range/Units 12:08 WBC 10.2 (4.8-10.8) K/mm3 Hgb 13.8 (12.4-15.3) g/dL Hct 39.8 (37.0-46.0) % Plt Count 282 (150-420) K/mm3 BMP 01/05/25 01/05/25 01/05/25 12:08 14:43 18:56 Sodium 142 142 143 Potassium 3.5 3.6 3.4 L Chloride 102 103 105 Carbon Dioxide 21 24 24 BUN 16 15 15 Creatinine 1.44 H 1.28 1.24 Glucose 375 H 357 H 292 H Calcium 9.8 9.5 9.5 01/05/25 01/06/25 01/06/25 22:40 02:58 06:32 Sodium 143 142 140 Potassium 3.3 L 3.5 3.6 Chloride 107 107 104 Carbon Dioxide 24 24 25 BUN 15 15 14 Creatinine 1.04 1.10 1.08 Glucose 322 H 307 H 323 H Calcium 8.3 L 8.5 8.4 L Cardiac Enzymes 01/05/25 Range/Units 12:08 Troponin I 9.2 (0.00-60.4) ng/L Liver Function 01/05/25 Range/Units 12:08 Total Bilirubin 1.3 H (0.00-1.00) mg/dL AST 19 (15-37) U/L ALT 26 (16-63) U/L Alkaline Phosphatase 98 (46-116) U/L Albumin 4.4 (3.4-5.0) g/dL Urine 01/05/25 Range/Units 12:00 Urine Color Yellow (Yellow) Urine Appearance Clear (Clear) Urine pH 5.5 (5.0-8.0) Ur Specific [place] 1.025 H (1.010-1.020) Urine Protein 1+ H (Negative) Urine Glucose (UA) Negative (Negative) Assessment and Plan Assessment and plan (1) Altered mental status: Code(s): R41.82 - Altered mental status, unspecified Status: Acute Assessment and Plan: CT scan is normal brain no/s/s of infection ? Dementia, Infection r/o,Bipoloar, Schizophrenia (2) Hyperosmolar hyperglycemic state (HHS): Code(s): E11.00 - Type 2 diabetes mellitus with hyperosmolarity without nonketotic hyperglycemic-hyperosmolar coma (NKHHC) Status: Acute Assessment and Plan: Q4 hour blood sugars with Sliding scale D51/2 ns w potassium Sliding sclae A!C 8.4 continue to monitor blood sugars BMP Q 4 hours discontinued at this time and daily (3) Hypomagnesemia: Code(s): E83.42 - Hypomagnesemia Status: Acute Assessment and Plan: Replenish Magnesium recheck level
[2025-01-06] MEDS: INSULIN HUMAN LISPRO (*BKC) 1,000 UNITS/10 ML VIAL 10 UNITS SUB-Q ×2 (08:32→17:17)
[2025-01-06] MEDS: PREGABALIN (*CRX) 100 MG CAPSULE 200 MG PO ×3 (08:34→17:14)
[2025-01-06] MEDS: ATORVASTATIN 40 MG TABLET PO (08:35)
[2025-01-06] MEDS: PANTOPRAZOLE SODIUM IV 40 MG VIAL IV PUSH (08:36)
[2025-01-06 11:44] LABS: Glucose Point of Care 261 mg/dl (65-105)
[2025-01-06 11:50] VITALS: BP 153/69; PULSE 62; PULSE 63; RESP 16; TEMP 36.5; O2SAT 100
[2025-01-06] MEDS: INSULIN HUMAN LISPRO (*BKC) 1,000 UNITS/10 ML VIAL SUB-Q ×3 (12:06→20:06)
--- NOTE | 2025-01-06 12:37 | PC.NURSE ---
Patient is now A/O but lacks knowledge related to diabetes. Written materials will be provided and patient verbally educated.
[2025-01-06 16:00] VITALS: BP 136/66; PULSE 65; RESP 16; TEMP 36.7; O2SAT 98
[2025-01-06 16:29] LABS: Glucose Point of Care 334 mg/dl (65-105)
[2025-01-06] MEDS: ACETAMINOPHEN 325 MG TABLET 650 MG PO (17:26)
[2025-01-06 20:00] VITALS: PULSE 83
[2025-01-06 20:09] LABS: Glucose Point of Care 352 mg/dl (65-105)
[2025-01-06 20:38] VITALS: PULSE 74
[2025-01-06] MEDS: ARIPiprazole 5 MG TABLET PO (20:38)
[2025-01-06] MEDS: PROPRANOLOL HCL 60 MG CAPSULE CR PO (20:38)
[2025-01-07] VITALS: BP 149/73; PULSE 60; PULSE 75; RESP 16; TEMP 36.9; O2SAT 99
[2025-01-07 00:03] LABS: Glucose Point of Care 235 mg/dl (65-105)
[2025-01-07] MEDS: INSULIN HUMAN LISPRO (*BKC) 1,000 UNITS/10 ML VIAL SUB-Q ×4 (00:21→12:19)
[2025-01-07] MEDS: KCL 20 MEQ/D5/0.45% SOD CHL 1,000 ML 150 ML IV CONT (00:29)
[2025-01-07] MEDS: MELATONIN 5 MG TABLET PO (01:09)
[2025-01-07] MEDS: ALPRAZolam (*CRX) 0.25 MG TABLET PO (01:09)
[2025-01-07 04:00] VITALS: PULSE 83
[2025-01-07 04:20] LABS: Glucose Point of Care 291 mg/dl (65-105)
[2025-01-07] MEDS: ACETAMINOPHEN 325 MG TABLET 650 MG PO (06:15)
[2025-01-07 08:00] VITALS: BP 175/72; PULSE 63; PULSE 65; RESP 16; TEMP 36.4; O2SAT 96
[2025-01-07 08:15] LABS: Glucose Point of Care 317 mg/dl (65-105)
[2025-01-07] MEDS: ATORVASTATIN 40 MG TABLET PO (08:22)
[2025-01-07] MEDS: PANTOPRAZOLE SODIUM IV 40 MG VIAL IV PUSH (08:22)
[2025-01-07] MEDS: PREGABALIN (*CRX) 100 MG CAPSULE 200 MG PO ×2 (08:22→12:17)
--- NOTE | 2025-01-07 09:06 | PC.NURSE ---
MICROBIOLOGY COORDINATOR aware of Registered Dietitiam Eval and assesment.
[2025-01-07 09:41] LABS: Hematocrit 39.2 % (37.0-46.0); Hemoglobin 13.2 g/dL (12.4-15.3); Mean Corpuscular HGB Conc 33.7 g/dL (32-36); Mean Corpuscular Hemoglobin 29.2 pg (27.0-31.0); Mean Corpuscular Volume 86.7 fL (78.0-102.0); Mean Platelet Volume 9.9 fl (8.7-11.0); Platelet Count Result 231 K/mm3 (150-420); Red Blood Count 4.52 M/mm3 (4.70-6.10); Red Cell Distribution Width 13.2 % (11.6-14.4); White Blood Count 8.1 K/mm3 (4.8-10.8)
[2025-01-07 10:00] LABS: Alanine Aminotransferase 28 U/L (16-63); Albumin Level 3.6 g/dL (3.4-5.0); Alkaline Phosphatase 75 U/L (46-116); Anion Gap 9 mmol/L (4-12); Aspartate Amino Transferase 17 U/L (15-37); Bilirubin,Total 0.9 mg/dL (0.00-1.00); Blood Urea Nitrogen 13 mg/dL (7-18); Calcium 8.4 mg/dL (8.5-10.1); Carbon Dioxide 24 mmol/L (21-32); Chloride 106 mmol/L (98-108); Estimated CRCL calculation 53 ml/min; Estimated Glomerular Filt Rate > 60; Glucose 287 mg/dL (70-99); Osmolality Calculated 298 mOsm/kg (285-295); Potassium 3.9 mmol/L (3.5-5.1); Sodium 139 mmol/L (136-145); Total Protein 7.1 g/dL (6.4-8.2)
[2025-01-07] MEDS: ONDANSETRON INJ 4 MG/2 ML VIAL IV PUSH (10:01)
[2025-01-07 10:02] LABS: Magnesium 1.9 mg/dL (1.8-2.4)
[2025-01-07 12:00] VITALS: PULSE 68
[2025-01-07 12:12] LABS: Glucose Point of Care 244 mg/dl (65-105)
[2025-01-07] MEDS: metFORMIN HCL 500 MG TABLET 1000 MG PO (12:16)
--- NOTE | 2025-01-07 12:28 | P.DS_ITS ---
DS: Admitting Diagnosis Discharge Date 01/07/2025 Admitting Diagnosis Metabolic encephalopathy secondary to hyperglycemia with hyperosmolality DS: Discharge Diagnosis Discharge Diagnosis (1) Hyperosmolar hyperglycemic state (HHS): Code(s): E11.00 - Type 2 diabetes mellitus with hyperosmolarity without nonketotic hyperglycemic-hyperosmolar coma (NKHHC) Status: Acute (2) Hypomagnesemia: Code(s): E83.42 - Hypomagnesemia Status: Acute (3) Metabolic encephalopathy: Code(s): G93.41 - Metabolic encephalopathy Status: Acute (4) Acidosis, lactic: Code(s): E87.20 - Acidosis, unspecified Status: Acute Plan Disposition: Discharged to to home DS: Summary Hospital Course Reason for hospitalization: Metabolic encephalopathy secondary to hyperglycemia with hyperosmolality Hospital Course: patient was a 79-year-old male who was brought to the emergency department after being found by his with altered mental status after she had been on of town for a day per patient's patient had not eaten day and had an episode vomiting and diarrhea the previous day. it was also reported patient did not take any of his medications and had not gotten out of bed. patient is usually alert oriented times 2-3 with intermittent confusion per . CT head showed no acute findings however in the emergency department patient was found to have hyperglycemia and metabolic acidosis no evidence of DKA. Patient has known past medical history of diabetes, anxiety, dementia, chronic back pain on chronic pain management of OxyContin. chest x-ray showed no active cardiopulmonary disease, normal WBC and was afebrile. patient's glucose on admission was 347 with lactic acidosis of 4.0 unknown last time patient had any oral intake prior to arrival per . drug screen panel was negative even though patient has oral OxyContin as well as viral panel for COVID/influenza/ RSV negative. Patient was admitted to the medical unit for further treatment of metabolic encephalopathy secondary to hyperglycemia with hyposmolality and lactic acidosis. patient was started on IV fluids and given regular insulin 10 units in the emergency department he was then placed on moderate sliding scale. patient typically takes metformin 500 mg b.i.d. follow-up A1c was at 8.4.. patient also with hypo magnesium of 1.3 was given 2 g IV. patient's blood sugars improved overall increase his metformin to a 1000 mg b.i.d. and educated on the need to follow-up with primary care physician within 3 months for follow- up A1c recommended glucose monitoring at home. patient is seen and assessed on day of discharge was alert and oriented x3 and answering all questions appropriately at bedside reported patient appeared back to his baseline. Patient was able to tolerate oral intake minimal nausea and tolerated breakfast and lunch without vomiting. lactic acidosis resolved with IV fluids. patient when seen and assessed day of discharge with no complaints and in no acute distress at bedside and updated on discharge plan both patient and acknowledged and agreed with discharge plan patient was discharged to home with . patient had been seen by PT / OT with no discharge needs for physical therapy. Status at Discharge Functional status at discharge: independent ambulation Overall status at discharge: patient is back to baseline Time Spent with Patient Time attestation: Total time spent providing and/or coordinating discharge services: Time spent: Greater than 30 minutes Exam Const: General: no acute distress Other: Quiet, slower to respond but responds appropriately HENMT: Mouth: Yes moist mucous membranes Eyes: General: appearance normal, both eyes and all related structures Resp: Effort & Inspection: normal respiratory effort Auscultation: clear to auscultation bilaterally Cardio: Rate: regular rate Skin: General skin exam: normal color Neuro: General: gait normal Speech: normal speech (slow and not speaing most of the time ) Extrem: General: normal to inspection Psych: Other: withdrawn DS: Data Data Completed and Pending Labs on day of discharge: Labs from last 24 hours 01/07/25 01/07/25 01/07/25 11:07 09:34 08:10 WBC 8.1 RBC 4.52 L Hgb 13.2 Hct 39.2 MCV 86.7 MCH 29.2 MCHC 33.7 RDW 13.2 Plt Count 231 MPV 9.9 Sodium 139 Potassium 3.9 Chloride 106 Carbon Dioxide 24 Anion Gap 9 BUN 13 Creatinine 1.13 Estim Creat Clear Calc 53 Estimated GFR > 60 Glucose 287 H POC Capillary Glucose 244 H 317 H Calculated Osmolality 298 H Calcium 8.4 L Magnesium 1.9 Total Bilirubin 0.9 AST 17 ALT 28 Alkaline Phosphatase 75 Total Protein 7.1 Albumin 3.6 01/07/25 01/06/25 01/06/25 04:15 23:57 20:04 WBC RBC Hgb Hct MCV MCH MCHC RDW Plt Count MPV Sodium Potassium Chloride Carbon Dioxide Anion Gap BUN Creatinine Estim Creat Clear Calc Estimated GFR Glucose POC Capillary Glucose 291 H 235 H 352 H Calculated Osmolality Calcium Magnesium Total Bilirubin AST ALT Alkaline Phosphatase Total Protein Albumin 01/06/25 16:24 WBC RBC Hgb Hct MCV MCH MCHC RDW Plt Count MPV Sodium Potassium Chloride Carbon Dioxide Anion Gap BUN Creatinine Estim Creat Clear Calc Estimated GFR Glucose POC Capillary Glucose 334 H Calculated Osmolality Calcium Magnesium Total Bilirubin AST ALT Alkaline Phosphatase Total Protein Albumin Imaging Radiologist's impression: EXAMINATION: CT brain wo con DATE: 01/05/2025 12:40 INDICATION: Altered mental status. TECHNIQUE: Computed tomography (CT) of the head was performed without intravenous contrast. The mA was adjusted according to patient size. Iterative reconstruction technique was employed. The dose-length product was 605.33 mGy- cm. COMPARISON: None FINDINGS: There is no intracranial hemorrhage, acute infarction, or abnormal intracranial mass lesion. The ventricles are normal in size. The orbits are normal. There is mild mucosal thickening in the paranasal sinuses. The mastoid air cells are normal. IMPRESSION: 1. Normal brain. Discharge Plan Discharge Attending physician on discharge: Percy Young Consulting providers: Geovani Pemberton; Jackie Lee; Shakeel Harris Jonathan V. Discharging Clinician: Jackie Lee Anticipated Discharge Date/Time: 01/07/25 12:18 Patient Disposition: Home, Self-Care Activity: may shower and as tolerated Diet: diabetic Discharge Instructions: Diabetes/hyperglycemia * I have increased your metformin to 1000mg twice a day please take as indicated * You will need a f/U A1C with your primary in 3 months for continued antidiabetic medication adjustments * Please monitor blood sugars at home * I have provided information and education on Diabetes with this discharge How can you care for yourself at home? ? Keep track of any new symptoms or changes in your symptoms. ? Rest until you feel better. ? Be safe with medicines. Take your medicines exactly as prescribed. Call your doctor if you think you are having a problem with your medicine. ? Do not drive after taking a prescription pain medicine. ? Ensure to follow-up with primary care physician as indicated and provide updated medication list provided to you at discharge. When should you call for help? Call 911 anytime you think you may need emergency care. For example, call if: ? You passed out (lost consciousness). Call your doctor now or seek immediate medical care if: ? You have new symptoms like fever, difficulty breathing, Chest pain, vomiting, or rash. ? You have new or different pain. ? You are confused and are having trouble thinking clearly. ? Your symptoms are getting worse. Watch closely for changes in your health, and be sure to contact your doctor if: ? You do not get better as expected. Patient Instructions: Fall Prevention for Older Adults (DC), Hyperosmolar Hyperglycemic State (DC), Managing Diabetes During Sick Days (DC), Diabetic Hyperglycemia (DC), Hemoglobin A1c (GEN), Type 2 Diabetes in the Older Adult (DC), Diabetes and Nutrition (DC), Diabetes and Exercise (ED) Patient Language: Kittitian Stand Alone Forms: General Discharge Information Follow-up/Referrals: Fam Miller MD [Primary Care Provider] - 2 weeks Discharge Medications: Continued atorvastatin 40 mg tablet 40 mg PO DAILY propranolol 60 mg capsule,extended release 24 hr 60 mg PO HS alprazolam 0.25 mg tablet 0.25 mg PO BID PRN (Reason: anxiety) temazepam 15 mg capsule 15 mg PO HS PRN (Reason: sleep) oxycodone-acetaminophen 10-325 mg tablet 1 tablet PO QID PRN (Reason: pain) pantoprazole 40 mg tablet,delayed release (DR/EC) 40 mg PO DAILY aripiprazole 5 mg tablet 5 mg PO HS pregabalin 200 mg capsule 200 mg PO TID ondansetron HCl 4 mg tablet 4 mg PO TID PRN (Reason: nausea and vomiting) Qty: 30 0RF Changed metformin 500 mg tablet extended release 24 hr 1,000 mg PO BID Qty: 120 0RF Discontinued hydroxyzine HCl 25 mg tablet 25 mg PO TID Date of admission: 01/05/25 14:28 Primary Care Provider: Fam Miller Admitting Provider: Percy Young Attending physician on admission: Percy Young Condition: Stable Quality -Patient's previous records reviewed on admission -ER notes reviewed in detail on admission -discussed all findings and current treatment plan with patient/Family/POA -Consultations reviewed for recommendations -Patient's disposition for safe discharge discussed with caser shoe parts Dictation performed by varinode direct speech recognition software, therefore joggle press operator variants and typographical errors may occur. Hospitalist MIPS Heart Failure (Exclusion) Patient has history of Heart Transplant or Left Ventricular Assistive Device?: No IF YES, STOP HERE Heart Failure (Qualifier) Patient has current or prior documentation of LVEF less than or equal to 40%, or mod/servere depressed LVSF?: No IF NO, STOP HERE
--- NOTE | 2025-01-07 15:30 | PC.NURSE ---
Discharge instructions reviewed with patient and , verbalized understanding. Patient taken off floor per wheelchair
--- NOTE | 2025-01-08 11:08 | PC.NURSE ---
Discharge call back attempted, no answer
--- NOTE | 2025-01-09 08:59 | PC.NURSE ---
discharge call back complete, appreciative of the care received, states blood sugars are in the 140s and doing well, no questions regarding dc instructions
== END 2025-01-07 15:30 | disposition home or self-care (01) | DRG 637 ==
LOC: CHSED 12:09 → CHS2ND 14:32
PROVIDERS: Nurse Practitioner Family; Admitting Provider Internal Medicine; Emergency Provider Emergency Medicine; PCP Internal Medicine; Visit Provider Internal Medicine
DX: E11.00 Type 2 diabetes mellitus with hyperosmolarity without nonketotic hyperglycemic-hyperosmolar coma (NKHHC) (principal); E87.20 Acidosis, unspecified; M54.9 Dorsalgia, unspecified; Z79.891 Long term (current) use of opiate analgesic; Z20.822 Contact with and (suspected) exposure to COVID-19; Z87.891 Personal history of nicotine dependence; G93.41 Metabolic encephalopathy; E83.42 Hypomagnesemia; G89.29 Other chronic pain
CPT/HCPCS: 36415; 36600; 70450; 80048; 80053; 80307; 81001; 82375; 82805; 82948; 83036; 83050; 83605; 83735; 84100; 84484; 85018; 85025; 85027; 87493; 87637; 93005; 96360; 97161; 97165; 99285; A9270; J1815; J2405; J2470; J3475; J3480; J7030

== ENCOUNTER 2025-02-23 14:33 | Emergency (ER) | payer MEDICARE, SELFPAY ==
[2025-02-23] VITALS (39 sets, daily range): BP systolic 79–117; BP diastolic 45–77; PULSE 85–104; RESP 11–23; TEMP 36.4–36.9; O2SAT 91–98
--- NOTE | ~2025-02-23 | CT_ITS ---
EXAMINATION: CT brain wo con DATE: 02/23/2025 15:26 INDICATION: tia rule out, ams, rt facial droop . TECHNIQUE: Computed tomography (CT) of the head was performed without intravenous contrast. The mA wa s adjusted according to patient size. Iterative reconstruction technique was employed. The dose-lengt h product was 681.00 mGy-cm. COMPARISON: 01/05/2025. FINDINGS: 4 mm focal hyperdensity in the posterior right occipital lobe (axial 44/72, sagittal 44/99). No extra -axial fluid collection. No hydrocephalus, mass, or herniation. No acute ischemic infarct. Unremarkable dural venous sinus attenuation. No acute osseous abnormality. The aerated spaces are clear. Moderate atrophy and chronic white matter change. Atherosclerotic intracranial calcification. Left ba weston ganglia calcification. IMPRESSION: 4 mm right occipital lobe hyperdensity, may represent artifact versus focal intraparenchymal or subar achnoid hemorrhage. No acute large vessel infarct. Consider brain MR for further evaluation. Results reported telephonically to Claire Dan RN by Dr. Villalba at 2:47 PM on 02/23/2025. Reviewed, dictated and finalized at location K. IMPRESSION: 4 mm right occipital lobe hyperdensity, may represent artifact versus focal int raparenchymal or subarachnoid hemorrhage. No acute large vessel infarct. Consider brain MR for further evaluation. Results reported telephonically to Claire Dan RN by Dr. Villalba at 2:47 PM on 02/23/2025.
--- NOTE | ~2025-02-23 | CT_ITS ---
EXAMINATION: CTA brain carotid DATE: 02/23/2025 17:39 INDICATION: 4MM HYPERDENSITY TECHNIQUE: Computed tomographic angiography (CTA) of the head and neck was performed with 100 mL Omni paque-350 intravenous contrast. Automated exposure control and iterative reconstruction technique wer e employed. The dose-length product was 1310.55 mGy-cm. Maximum intensity projection and volume rende red 3D-reconstructions were created by the technologist on a separate workstation. COMPARISON: CT brain, same date. FINDINGS: CTA HEAD: No large vessel occlusion, aneurysm, high flow vascular malformation, nidus or extravasation. Symmetr ic parenchymal enhancement. Patent cerebral veins. CTA NECK: Evaluations of the neck vessels is limited by decreased arterial enhancement and venous contamination . Aortic arch and proximal great vessels: Normal arch anatomy. Atherosclerotic calcifications at the vi sualized aortic arch and proximal great vessels. Right common carotid, carotid bifurcation, and internal carotid artery: Calcified atherosclerotic doe que at the carotid bifurcation.There is 0% stenosis of the proximal right internal carotid artery rel ative to normal distal artery lumen diameter (NASCET criteria). Left common carotid, carotid bifurcation, and internal carotid artery: Calcified atherosclerotic plaq ue at the carotid bifurcation.There is 64% stenosis of the proximal left internal carotid artery rela tive to normal distal artery lumen diameter (NASCET criteria). Vertebral arteries: No significant plaque or stenosis in the right vertebral artery. The left vertebr al artery is small in caliber with little/no flow proximally, reconstitution in the intradural portio n. Vertebral arteries co-dominant. Other findings: Enlarged mediastinal lymph nodes. IMPRESSION: No large vessel intracranial occlusion, high-grade intracranial stenosis, or aneurysm. No carotid occlusion or dissection. 64% stenosis of the proximal left internal carotid artery at the bifurcation. Very small caliber left vertebral artery with limited/no flow in the proximal/mid artery. Mediastinal lymphadenopathy. Reviewed, dictated and finalized at location K. IMPRESSION: No large vessel intracranial occlusion, high-grade intracranial stenosis, or an eurysm. No carotid occlusion or dissection. 64% stenosis of the proximal left internal carotid artery at the bifurcation. Very small caliber left vertebral artery with limited/no flow in the proximal/m id artery. Mediastinal lymphadenopathy.
[2025-02-23 14:49] LABS: Glucose Point of Care 69 mg/dl (65-105)
--- NOTE | 2025-02-23 15:00 | ECG_ITS ---
Test Date: 2025-02-23 15:11:04 Measurements Intervals Dorris Rate: 90 P: 55 DE: 167 QRS: 50 QRSD: 79 T: 42 QT: 345 QTc: 423 Interpretive Statements SINUS RHYTHM NORMAL ECG Compared to ECG 01/05/2025 12:04:11 NO SIGNIFICANT CHANGE Electronically Signed On 02-23-2025 17:01:56 CDT by Bull Ortega D.O.
[2025-02-23 15:29] LABS: Basophils Absolute Auto 0.04 K/mm3 (0.00-0.10); Basophils Percent Auto 0.4 % (0.0-1.0); Eosinophils Absolute Auto 0.72 K/mm3 (0.02-0.50); Eosinophils Percent Auto 6.9 % (1.0-6.0); Hematocrit 34.6 % (37.0-46.0); Hemoglobin 11.3 g/dL (12.4-15.3); Immature Granulocyte Absolute 0.04 K/mm3 (0.00-0.00); Immature Granulocyte Percent A 0.4 % (0.0-0.0); Lymphocytes Absolute Auto 1.96 K/mm3 (1.10-4.50); Lymphocytes Percent Auto 18.9 % (18.0-42.0); Mean Corpuscular HGB Conc 32.7 g/dL (32-36); Mean Corpuscular Hemoglobin 30.1 pg (27.0-31.0); Mean Platelet Volume 9.3 fl (8.7-11.0); Monocytes Absolute Auto 0.88 K/mm3 (0.10-0.90); Monocytes Percent Auto 8.5 % (2.0-11.0); Neutrophils Absolute Auto 6.74 K/mm3 (1.70-7.20); Neutrophils Percent Auto 64.9 % (50.0-70.0); Platelet Count Result 288 K/mm3 (150-420); Red Blood Count 3.76 M/mm3 (4.70-6.10); Red Cell Distribution Width 16.4 % (11.6-14.4); White Blood Count 10.4 K/mm3 (4.8-10.8)
--- NOTE | 2025-02-23 15:35 | ED_ITS ---
HPI - Altered Mental Status General Chief Complaint: Altered Mental Status Stated Complaint: altered mental status Time Seen by Provider: 02/23/25 14:46 Source: patient Mode of arrival: ambulatory Limitations: no limitations History of Present Illness HPI narrative: patient is a 79-year-old male with significant past medical history presents today for altered mental status. Patient was at his primary care physician's office and apparently was sitting there and peers able to stay awake and apparently had a left pronator drift and his primary care physician was concerned call here and discuss this with me. He said he was barely arousable and was acting strange and seemed like he was almost having a stroke. So he has symptoms to the emergency department. When he got his Emergency Department he was much more coherent and was able to talk in sentences but slurred his words a little bit but was talking and had no signs of a stroke. His NIH score was about maybe a for just because of right-sided facial droop and slurred speech, however after talking to his she says that he always has a right-sided facial droop so is an HR prior to only be about a 2. MD complaint: altered mental status and decreased responsiveness Onset (ago): hour(s) Severity: mild Consistency of symptoms: waxing and waning Context: diabetes and other ( Overmedicated and confused on how to take medication) Associated symptoms: denies other symptoms Related Data Allergies Allergy/AdvReac Type Severity Reaction Status Date / Time atenolol Allergy Unknown Unknown Verified 02/23/25 14:49 fluoxetine Allergy Unknown Unknown Verified 02/23/25 14:49 meloxicam Allergy Unknown Unknown Verified 02/23/25 14:49 nortriptyline Allergy Unknown Unknown Verified 02/23/25 14:49 omeprazole Allergy Unknown Unknown Verified 02/23/25 14:49 Review of Systems 2 Review of Systems: All systems reviewed & are unremarkable except as noted in HPI and below Constitutional: Constitutional: Reports as per HPI Eyes: Eyes: Reports no additional eye complaints ENT: Reports system reviewed and no additional complaints, except as documented Cardiovascular: Cardiovascular: Reports no additional cardiovascular complaints Respiratory: Respiratory: Reports no additional respiratory complaints Gastrointestinal: Gastrointestinal: Reports no additional gastrointestinal complaints Genitourinary: Genitourinary: Reports no additional male genitourinary complaints Musculoskeletal: Musculoskeletal: Reports no additional musculoskeletal complaints Integumentary/Breasts: Skin/Breast: Reports system reviewed and no additional complaints, except as docu Neurologic: Reports as per HPI, Reports confusion and Reports weakness Psychiatric: Psychiatric: Reports as per HPI Endocrine: Endocrine: Reports no additional endocrine complaints Hematologic/Lymphatic: Hematologic/Lymphatic: Reports no additional hematologic/lymphatic complaints Allergic/Immunologic: Allergic/Immunologic: Reports no additional allergic/immunologic complaints [facility] Past Medical History Medical History Hilar lymphadenopathy Personal history of COVID-19 HTN (hypertension) Gait abnormality Chronic pain Insomnia CAD (coronary atherosclerotic disease) Protein-calorie malnutrition, moderate Family History Family History Father Diabetes mellitus Hypertension Family history of arthritis Family history of malignant neoplasm Family history of lung cancer Mother Family history of diabetes mellitus in first degree relative Family history of cardiovascular disease Sibling Patient's sister is Social History Social History Smoking packs per day: 1 Smoking cigarettes per day: 20.0 Years smoked: 40 Smoking pack-years: 40.00 Smoking status: Former smoker Tobacco type: cigarettes Second hand tobacco smoke exposure: No Smoking end date: 01/05/05 Alcohol intake: never Substance use: never Substance use type: does not use Do You Feel Safe in your Home?: Yes Lack of Transportation: No Lack of Food: Never True Current Housing: I Have Housing Concerned About Future Housing: No Difficulty Paying Gas/Electric Bills: No Difficulty Paying for Meds: No Currently Unemployed: No Education: High School Diploma/GED Difficulty w/ Childcare or Family Care: No Spiritual care concerns: No Exam 2 Const: General: healthy appearing Nutritional Appearance: well nourished Orientation/consciousness: patient oriented x3 HENMT: Head: normal to inspection Ears: external ears normal F edward/Nose/Sinus: Normal external nose present Face and sinus: normal facial exam Eyes: Conjunctivae: conjunctivae normal Pupils: Equal, round and reactive pupils present EOM: EOMs intact bilaterally Neck: Neck: normal visual inspection Chest: Chest palpation & inspection: normal inspection of the chest Resp: Effort & Inspection: normal respiratory effort Auscultation: clear to auscultation bilaterally Cardio: Rate: regular rate Rhythm: regular rhythm Heart sounds: Murmur heart sound present GI: GI Palp: Yes Soft to palpation Back/Spine/Pelvis: Back: no CVA tenderness Skin: General skin exam: normal color Rashes: no rashes Wounds: no wounds Neuro: General: patient oriented x3 Cranial nerves: Yes Nystagmus not present Speech: normal speech Gait exam (Neuro): Normal gait present Extrem: General: normal to inspection Psych: Mental Status: mental status grossly normal Affect: normal affect Attitude: cooperative Course Vital Signs Vital signs: Vital Signs Temperature 98.5 F 02/23/25 14:35 Pulse Rate 92 02/23/25 14:35 Respiratory Rate 12 02/23/25 14:35 Blood Pressure 99/71 L 02/23/25 14:35 Pulse Oximetry 95 02/23/25 14:35 Oxygen Delivery Room Air 02/23/25 14:35 Temperature 97.6 F 02/23/25 18:01 Pulse Rate 85 02/23/25 18:20 Respiratory Rate 19 02/23/25 18:16 Blood Pressure 117/56 L 02/23/25 18:15 Pulse Oximetry 95 02/23/25 18:16 Oxygen Delivery Room Air 02/23/25 14:35 MDM - Altered Mental Status MDM Narrative Medical decision making narrative: patient's glucose was only 63 when he got here he has no idea had take his insulin he is diabetic and he has no clue as to take his insulin says he woke up last night and was confined back asleep so he took insulin to try to sleep. Him and his are completely out of it and should not be living on There own. I went over how to take his insulin correctly with him extensively and even wrote it down for him on his list. He might have just been hypoglycemic when he was in the clinic for possible had a TIA there is no way of knowing. Will do a scan due his head and do blood work as well. For CTA showed a 4 mm hyperdensity unknown all what exactly it was talk to radiologist about this and I decided to do a CTA to recheck if that could possibly be artifact and/or the hemorrhage resolved. CTA did not show any lead any artifact or anything of the sort which means it could have been artifact or could have been the body already sealed up the small bleed is gone. Patient can be sent home safely. Differential Diagnosis Differential diagnosis: Likely subarachnoid hemorrhage and other (brain hyperdensity) Medical Records Attestation: I reviewed the patient's medical records. Lab Data Attestation: I reviewed the patient's lab results. 02/23/25 15:25 02/23/25 15:25 Labs: Lab Results 02/23/25 02/23/25 Range/Units 14:46 15:25 WBC 10.4 (4.8-10.8) K/mm3 RBC 3.76 L (4.70-6.10) M/mm3 Hgb 11.3 L (12.4-15.3) g/dL Hct 34.6 L (37.0-46.0) % MCV 92.0 (78.0-102.0) fL MCH 30.1 (27.0-31.0) pg MCHC 32.7 (32-36) g/dL RDW 16.4 H (11.6-14.4) % Plt Count 288 (150-420) K/mm3 MPV 9.3 (8.7-11.0) fl Immature Gran % (Auto) 0.4 H (0.0-0.0) % Neut % (Auto) 64.9 (50.0-70.0) % Lymph % (Auto) 18.9 (18.0-42.0) % Archuleta % (Auto) 8.5 (2.0-11.0) % Eos % (Auto) 6.9 H (1.0-6.0) % Baso % (Auto) 0.4 (0.0-1.0) % Lymph # (Auto) 1.96 (1.10-4.50) K/mm3 Archuleta # (Auto) 0.88 (0.10-0.90) K/mm3 Eos # (Auto) 0.72 H (0.02-0.50) K/mm3 Baso # (Auto) 0.04 (0.00-0.10) K/mm3 Abs Immat Gran (auto) 0.04 H (0.00-0.00) K/mm3 Absolute Neuts (auto) 6.74 (1.70-7.20) K/mm3 Absolute Nucleated RBC 0.00 (0.00-0.00) K/mm3 Nucleated RBC % 0.0 (0-0.0) % Sodium 137 (136-145) mmol/L Potassium 5.1 (3.5-5.1) mmol/L Chloride 103 (98-108) mmol/L Carbon Dioxide 27 (21-32) mmol/L Anion Gap 7 (4-12) mmol/L BUN 24 H (7-18) mg/dL Creatinine 1.81 H (0.70-1.30) mg/dL Estim Creat Clear Calc 32 ml/min Estimated GFR 36 L (59 - ) Glucose 65 L (70-99) mg/dL POC Capillary Glucose 69 (65-105) mg/dl Calculated Osmolality 286 (285-295) mOsm/kg Calcium 9.1 (8.5-10.1) mg/dL Magnesium 1.7 L (1.8-2.4) mg/dL Total Bilirubin 0.6 (0.00-1.00) mg/dL AST 25 (15-37) U/L ALT 35 (16-63) U/L Alkaline Phosphatase 81 (46-116) U/L Total Protein 6.8 (6.4-8.2) g/dL Albumin 3.0 L (3.4-5.0) g/dL Imaging Data Attestation: I personally reviewed and interpreted this imaging study as follows: Discharge Plan Discharge Clinical Impression: Altered mental status, Hypoglycemia Patient Disposition: Home Condition: Stable Instructions: Altered Mental Status (ED) Additional Instructions: renal CT shows a small hyperdensity. Repeat CTA showed no hyper density no lesions and was no acute findings. Discussed with patient about the importance of glucose control and how to properly take his insulin. He needs to follow up with his PCP as soon as possible to discuss had a probably take his insulin. Patient Language: Slovenian Prescriptions: No Action oxycodone 5 mg Tablet 2.5 mg PO BID PRN (Reason: Pain Rated 7-10) Qty: 10 0RF pregabalin [Lyrica] 25 mg Capsule 50 mg PO Q12HR Qty: 120 0RF melatonin 3 mg Tablet 3 mg PO HS PRN (Reason: Insomnia) Qty: 0 0RF guaifenesin [Mucus Relief ER] 600 mg Tablet Extended Release 12hr 600 mg PO Q12HR PRN (Reason: cough) Qty: 0 0RF acetaminophen 325 mg Tablet 650 mg PO Q6H PRN (Reason: Mild Pain (1-3) Or Fever) Qty: 0 0RF atorvastatin 40 mg tablet 40 mg PO DAILY Qty: 30 0RF metformin 500 mg tablet 500 mg PO BIDWMEAL Qty: 30 0RF propranolol 10 mg tablet 10 mg PO Q8H Qty: 90 0RF pyridoxine (vitamin B6) 50 mg tablet 50 mg PO DAILY Qty: 30 0RF insulin lispro [Admelog U-100 Insulin lispro] 100 unit/mL solution 5 unit subcut TIDWMEAL Qty: 15 0RF olanzapine 5 mg tablet,disintegrating 5 mg PO HS Qty: 30 0RF mirtazapine 7.5 mg tablet 7.5 mg PO HS Qty: 30 0RF insulin glargine [Lantus Solostar U-100 Insulin] 100 unit/mL (3 mL) insulin pen 12 unit subcut BID Qty: 15 0RF thiamine mononitrate (vit B1) 100 mg tablet 100 mg PO DAILY Qty: 30 0RF Follow-up/Referrals: Fam Miller MD [Primary Care Provider] - Time of Disposition: 18:48
[2025-02-23 15:43] LABS: Alanine Aminotransferase 35 U/L (16-63); Alkaline Phosphatase 81 U/L (46-116); Anion Gap 7 mmol/L (4-12); Aspartate Amino Transferase 25 U/L (15-37); Bilirubin,Total 0.6 mg/dL (0.00-1.00); Blood Urea Nitrogen 24 mg/dL (7-18); Calcium 9.1 mg/dL (8.5-10.1); Carbon Dioxide 27 mmol/L (21-32); Chloride 103 mmol/L (98-108); Estimated CRCL calculation 32 ml/min; Estimated Glomerular Filt Rate 36; Glucose 65 mg/dL (70-99); Osmolality Calculated 286 mOsm/kg (285-295); Potassium 5.1 mmol/L (3.5-5.1); Sodium 137 mmol/L (136-145); Total Protein 6.8 g/dL (6.4-8.2)
[2025-02-23 15:55] LABS: Magnesium 1.7 mg/dL (1.8-2.4)
[2025-02-23] MEDS: DEXTROSE 5%/0.9% SOD CHL 1,000 ML 999 ML IV CONT ×2 (16:19→17:52)
--- OUTSIDE RECORDS SUMMARY | 2025-02-23 16:43 | XMS_ITS | Encounter Summary ---
Author Organization [facility] Address [address] [place] [id number] Care Team Providers Care Station Manager Name Role Phone Fam Miller MD Primary Care Provider [phone] Martha Rodriguez APRN, NP-C Unavailable Daren Bailon MD Unavailable [phone] Arin Gamez MD Unavailable [phone] Kellie Fermin ANP-BC Unavailable [phone] Fredrick Camarena MD Unavailable [phone] Encounter Details Date Type Department Care Team (Late st Contact Info) Description 02/14/2023 Abstract [facility] [address] [place] [phone] Daren Bailon MD [address] [place] [phone] Social History Tobacco Use Types Packs/Day Years Used Date Smoking Tobacco: Former Smokeless Tobacco: Never Alcohol Use Standard Drinks/Week Comments Yes 0 (1 standard drink = 0.6 oz pur e alcohol) 1 drink/per week Sex and Gender Information Value Date Recorded Sex Assigned at Male 01/25/2025 5:11 PM CDT Legal Sex Male 9:20 PM CDT Gender [...] Upcoming Encounters Date Type Department Care Team ([facility] st Contact Info) Description 06/16/2025 11:15 AM CDT Office Visit [facility] [address] [place] [phone] Fredrick Camarena MD [address] [id number] documented as of this encounter Visit Diagnoses Not on filedocumented in this encounter Care Teams Station Manager Relationship Specialty Start Date End Date Fam Miller MD [address] [place] [address] PCP - General INTERNAL MEDICINE 12/25/22 Martha Rodriguez, SOCIAL SCIENCES LECTURER, [employer] [address] [phone] [facility] [employer] NURSE PRACTITIONER 12/25/22 02/13/24 Daren Bailon MD [address] [place] [phone] [facility] [employer] CARDIOVASCULAR DISEASE 12/25/22 02/13/24 Arin Gamez MD [address] [place] [phone] INTERVENTIONAL CARDIOLOGY 02/14/24 01/02/25 Kellie Fermin, ANP- [address] [place] [address] Nurse Practitioner NURSE PRACTITIONER ADULT HEALTH 02/14/24 Fredrick Camarena MD [address] [address] Physician INTERVENTIONAL CARDIOLOGY 01/02/25 documented as of this encounter
--- OUTSIDE RECORDS SUMMARY | 2025-02-23 16:43 | XMS_ITS | Encounter Summary ---
Author Organization [facility] Address [address] [place] [address] Care Team Providers Care Cylinder Machine Operator Name Role Phone Fam Miller MD Primary Care Provider [phone] Martha Rodriguez APRN, NP-C Unavailable Daren Bailon MD Unavailable [phone] Arin Gamez MD Unavailable [phone] Kellie Fermin ANP-BC Unavailable [phone] Fredrick Camarena MD Unavailable [phone] Encounter Details Date Type Department Care Team (Late st Contact Info) Description 02/07/2023 Hospital Orders Only [place] Pest Technician Pre/Post [address] [place], [place] [phone] Daren Bailon MD [address] [place] [phone] Social History Tobacco Use Types Packs/Day Years [...] Upcoming Encounters Date Type Department Care Team ([facility] st Contact Info) Description 06/16/2025 11:15 AM CDT Office Visit [facility] [address] [place] [phone] Fredrick Camarena MD [address] [address] documented as of this encounter Visit Diagnoses Not on filedocumented in this encounter Care Teams Cylinder Machine Operator Relationship Specialty Start Date End Date Fam Miller MD [address] [place] [address] PCP - General INTERNAL MEDICINE 12/25/22 Martha Rodriguez, APPARATUS REPAIR MECHANIC, FLUME RIDE OPERATOR-C [address] [phone] [place] Molecular Modeler NURSE PRACTITIONER 12/25/22 02/13/24 Daren Bailon MD [address] [place] [phone] [place] Molecular Modeler CARDIOVASCULAR DISEASE 12/25/22 02/13/24 Arin Gamez MD [address] [place] [phone] INTERVENTIONAL CARDIOLOGY 02/14/24 01/02/25 Kellie Fermin, ANP- [address] [place] [address] Nurse Practitioner NURSE PRACTITIONER ADULT HEALTH 02/14/24 Fredrick Camarena MD [address] [address] Physician INTERVENTIONAL CARDIOLOGY 01/02/25 documented as of this encounter
--- OUTSIDE RECORDS SUMMARY | 2025-02-23 16:43 | XMS_ITS | Encounter Summary ---
Author Organization [facility] Address [address] [place] [address] Care Team Providers Care Journalist Name Role Phone Fam Miller MD Primary Care Provider [phone] Martha Rodriguez APRN, NP-C Unavailable [phone] Daren Bailon MD Unavailable [phone] Arin Gamez MD Unavailable [phone] Kellie Fermin ANP-BC Unavailable [phone] Fredrick Camarena MD Unavailable [phone] Encounter Details Date Type Department Care Team (Late Contact Info) Description 04/05/2019 Abstract SFL CONVERSION [address] [place] [address] , Generic Conversion, Social History Tobacco Use [...] Description 06/16/2025 11:15 AM CDT Office Visit [facility] [address] [place] [phone] Fredrick Camarena MD [address] [address] documented as of this encounter Visit Diagnoses Not on filedocumented in this encounter Care Teams Journalist Relationship Specialty Start Date End Date Fam Miller MD [address] [place] [phone] PCP - General INTERNAL MEDICINE 12/25/22 Matrha Rodriguez APRN, SMALL PRODUCTS ASSEMBLER-C [address] [phone] [place] Statistical Clerk NURSE PRACTITIONER 12/25/22 02/13/24 Daren Bailon MD [address] [place] [address] [place] Statistical Clerk CARDIOVASCULAR DISEASE 12/25/22 02/13/24 Arin Gamez MD [address] [place] [address] INTERVENTIONAL CARDIOLOGY 02/14/24 01/02/25 Kellie Fermin, [facility]- [address] [place] [address] Nurse Practitioner NURSE PRACTITIONER ADULT HEALTH 02/14/24 Fredrick Camarena MD [address] [address] Physician INTERVENTIONAL CARDIOLOGY 01/02/25 documented as of this encounter
--- OUTSIDE RECORDS SUMMARY | 2025-02-23 16:43 | XMS_ITS | Clinical Summary ---
Author Organization [facility] Address [facility] [place] [address] Care Team Providers Care Branch Billing Payroll Clerk Name Role Phone Fam Miller MD Primary Care Provider [phone] Kellie Fermin ANP- Unavailable [phone] Fredrick Camarena MD Unavailable [phone] Allergies Active Allergy Reactions Criticality Noted Date Comments Fluoxetine Nausea Only 12/27/2022 Meloxicam GI Upset 04/07/2016 Nortriptyline Other (see comment) 04/07/2016 Omeprazole Dizziness 04/07/2016 Medications oxyCODONE-acet aminophen (PERCOCET) 10-325 MG tablet Take 1 tablet by mouth 4 (four) times daily as needed. 4 Active temazepam (RESTORIL) 15 MG capsule Take [...] mouth 3 (three) times daily as needed. 3 Active metFORMIN ER (GLUCOPHAGE-XR ) 500 MG 24 hr tablet Take 1 tablet (500 mg total) by mouth 2 (two) times daily. 3 Active atorvastatin (LIPITOR) 40 MG tablet Take 1 tablet (40 mg total) by mouth daily. 4 Active ARIPiprazole (ABILIFY) 2 MG tablet Take 1 tablet (2 mg total) by mouth daily. Active pregabalin (LYRICA) 200 MG capsule Take 1 capsule (200 mg total) by mouth 3 (three) times daily. 4 Active erythromycin (ROMYCIN) 5 MG/GM (0.5%) ophthalmic ointment Place into the right eye every 6 (six) hours. 3.5 g 4 Active propranolol LA (INDERAL LA) 60 MG 24 hr capsule Take 1 capsule (60 mg total) by mouth nightly at bedtime. 4 Active gabapentin (NEURONTIN) 300 MG capsule Take 1 capsule (300 mg total) by mouth 3 (three) times daily. 3 01/26/20 25 Discontinued Active Problems Problem Noted Date Diagnosed Date Low back pain 08/27/2023 S/P coronary artery stent placement 02/23/2023 Coronary artery disease invo lving [place] coronary artery of [place] heart with angina pectoris 02/13/2023 Hyperlipidemia 12/29/2022 Hypertension 12/29/2022 Diabetes ([facility]) 12/29/2022 Encounters Date Type Department Care Team Description 02/03/2025 Telephone [facility] [address] [address] Angela Cabello RN Referral (Swing bed referral to [facility] from [facility]) 01/25/2025 2:41 PM CDT - 01/25/2025 8:26 PM CDT Emergency [facility] [address] [place] [address] Woodrow Dooley MD Medical Problem Discharge Disposition: Transfer to Acute Care Hospital 01/25/2025 Travel 12/17/2024 [facility]phone [facility] [address] [place] [address] Arin Gamez MD Reschedule from [...] Sign Reading Time Taken Comments Blood Pressure 156/90 01/25/2025 7:30 PM CDT Pulse 126 01/25/2025 8:00 PM CDT Temperature 36.6 C (97.8 F) 01/25/2025 3:38 PM CDT Respiratory Rate 26 01/25/2025 8:00 PM CDT Oxygen Saturation 98% 01/25/2025 7:15 PM CDT Inhaled Oxygen Concentration - - Weight 79.8 kg (176 lb) 01/25/2025 3:38 PM CDT Height 170.2 cm (5' 7 ) 01/25/2025 3:38 PM CDT Body Mass Index 27.57 01/25/2025 3:38 PM CDT Plan of Treatment Upcoming Encounters Date Type Department Care Team ([facility] st Contact Info) Description 06/16/2025 11:15 AM CDT Office Visit [facility] [place] [phone] Fredrick Camarena MD [address] [address] Health Maintenance Due Date Last Done Comments Kidney Health Evaluation 1945 Diabetes: Retinopathy Eye Exam 1963 Hepatitis C 1963 DTaP, Tdap and Td Vaccines ( 1 - Tdap) 1965 Zoster Vaccines (1 of 2) 1996 Annual Medicare Wellness Visit 2011 Pneumococcal Vaccine: 50+ Years (2 of 2 - PCV) 10/29/2014 10/29/2013 RSV Immunization or 60+ Years (1 - 1-dose 75+ series) 2021 COVID-19 Vaccine ( - 2023-2 5 season) 2024 ASCVD LDL 08/14/2024 08/14/2023, 04/30/2015 Lipid Panel 08/14/2024 08/14/2023, 12/24/2022, 04/30/2015 Hemoglobin A1C 07/28/2025 01/25/2025, 08/14/2023 Meningococcal B Vaccine Aged Out No l onger eligible based on patient's age to complete this topic Meningococcal Vaccine Aged Out No efren yadira eligible based on patient's age to complete this topic RSV Immunizations Under 20 Months Aged Out No longer eligible b ased on patient's age to complete this topic Medical Devices Implanted Type Area Informaticist Device Identifier Shelf Expiration Date Model / Serial / Lot Cv Orsiro 3.0mm X 26mm [place] Mid Lad-02/13/2023 Implanted:01/27 by Fernando Plasencia MD (Quantity not on file) Stent Coronary LAD BIOTRONIK 07/10/2024 [id number] / / [id number] Procedures Procedure Name Priority Date/Time Associated Diagnosis Comments POCT GLUCOSE - MAGAÑA DOCKED DEVICE Routine 01/25/2025 8:01 PM CDT POCT GLUCOSE - MAGAÑA DOCKED DEVICE Routine 01/25/2025 7:10 PM CDT POCT GLUCOSE - MAGAÑA DOCKED DEVICE Routine 01/25/2025 6:05 PM CDT LACTIC ACID W REFLEX (SEPSIS) TIMED 01/25/2025 5:29 PM CDT POCT GLUCOSE - MAGAÑA DOCKED DEVICE Routine 01/25/2025 5:[address] CERV SPINE WO CON STAT 01/25/2025 4:[address] HEAD WO CON STAT 01/25/2025 4:18 PM CDT BETA-HYDROXYBUTYRATE STAT 01/25/2025 4:18 PM CDT BLOOD GAS, VENOUS STAT 01/25/2025 4:1 8 PM CDT TROPONIN, QUANT STAT 01/25/2025 4:18 PM CDT XR PELVIS 1 OR 2 VIEWS STAT 4:16 PM CDT XR CHEST PORTABLE STAT 01/25/2025 4:1 6 PM CDT POCT GLUCOSE - MAGAÑA DOCKED DEVICE Routine 01/25/2025 3:41 PM CDT ECG 12-LEAD Routine 01/25/2025 3:33 PM CDT PHOSPHORUS, INORGANIC PHOSPHATE STAT 01/25/2025 3:13 PM CDT MAGNESIUM STAT 01/25/2025 3:13 PM CDT SALICYLATE STAT 01/25/2025 3:13 PM CDT ACETAMINOPHEN STAT 01/25/2025 3:13 PM CDT PRO-BRAIN NATRIURETIC PEPTIDE STAT 01/25/2025 3:13 PM CDT ETHANOL STAT 01/25/2025 3:13 PM CDT THYROID STIM HORMONE TSH STAT 01/25/2025 3:13 PM CDT MAGNESIUM STAT 01/25/2025 3:13 PM CDT LACTIC ACID W REFLEX (SEPSIS) STAT 01/25/2025 3:13 PM CDT CK (CPK) STAT 01/25/2025 3:13 PM CDT TROPONIN, QUANT STAT 01/25/2025 3:13 PM CDT COMPREHENSIVE METABOLIC PANEL STAT 01/25/2025 3:13 PM CDT PROTHROMBIN TIME, VENOUS STAT 01/25/2025 3:13 PM CDT CBC W/DIFF AUTOMATED STAT 01/25/2025 3:13 PM CDT CRITICAL CARE Routine 01/25/2025 2:44 PM CDT LIPID PANEL Routine 08/14/2023 12:40 PM CDT Right flank pain Back pain Type 2 diabetes mellitus HEMOGLOBIN, GLYCOSYLATED Routine 08/14/2023 12:40 PM CDT Right flank pain Back pain Type 2 diabetes mellitus from Last 3 Months or Most Recently Relevant to Health Maintenance Results * (ABNORMAL) POCT glucose (01/25/2025 8:01 PM CDT) Only the most recent of5 resultswithin the time period is included. GLUCOSE POC 180(H) 70 - 99 MG/DL 01/25/2025 8:03 PM CDT [facility] 01/25/2025 8:01 PM CDT us Woodrow Dooley MD POCT ORDERABLES - DEVICE Fi nal Result Performing Organization Address [facility] Co de Phone Number [facility] [place] [address], * LACTIC ACID W REFLEX (SEPSIS) (01/25/2025 5:29 PM CDT) Only the most recent of2 resultswithin the time period is included. LACTIC ACID VENOUS 1.5 0.4 - 2.0 MMOL/L 01/25/2025 5:54 PM CDT [facility] 01/25/2025 5:29 PM CDT us [place] Dooley MD LABORATORY Final Resul t [facility] [address] [place] [address], * CT HEAD WO CON (01/25/2025 4:18 PM CDT) Anatomical Region Laterality Modality Head Computed Tomogra phy 01/25/2025 4:23 PM CDT Impressions 01/25/2025 4:24 PM CDT IMPRESSION: Limited study due to motion. No evidence of intracranial hemorrhage or other definite acute posttraumatic intracranial pathology. Atrophy with chronic ischemic changes. Ordered By: WOODROW DOOLEY Interpreted By: Waldo Tomlinson MD, 01/25/2025 4:23 PM Narrative 01/25/2025 4:24 PM CDT [place] [address] [employer] [address] CT OF THE BRAIN WITHOUT CONTRAST INDICATION: fall TECHNIQUE: CT of the brain was performed without contrast. A dose lowering technique was used for this procedure, which may include, but is not limited to, dose reduction techniques, automated exposure control, the use of a iterative reconstruction, and ALARA (as low as reasonably achievable)/image gently techniques. . COMPARISON: No previous FINDINGS: The posterior fossa shows no space-occupying process. In the temporal fossa and the frontal fossa no mass. Limited study due to motion. No definite acute intracranial hemorrhage or extra-axial fluid. No midline shift. There is atrophy including central atrophy and chronic ischemic findings. Cisterns are well maintained. Small calcifications in the basal ganglia. The osseous structures are intact. Minimal amount of air fluid level in the sphenoid sinus. Mastoid air cells are optimally aerated. Within the orbits no abnormalities. The central structures are unremarkable. Please correlate clinically. If there is concern for diffuse axonal injury or otherwise indicated recommend follow-up studies including with MRI when feasible. Procedure Note Waldo Tomlinson MD - 01/25/2025 [facility] [address] [place] [address] CT OF THE BRAIN WITHOUT CONTRAST INDICATION: fall TECHNIQUE: CT of the brain was performed without contrast. A doselowering technique was used for this procedure, which may include, but isnot limited to, dose reduction techniques, automated exposure control, theuse of a iterative reconstruction, and ALARA (as low as reasonablyachievable)/image gently techniques. . COMPARISON: No previous FINDINGS: The posterior fossa shows no space-occupying process. In the temporalfossa and the frontal fossa no mass. Limited study due to motion. No definite acute intracranial hemorrhage or extra-axial fluid. No midlineshift. There is atrophy including central atrophy and chronic ischemicfindings. Cisterns are well maintained. Small calcifications in the basalganglia. The osseous structures are intact. Minimal amount of air fluid level inthe sphenoid sinus. Mastoid air cells are optimally aerated. Within theorbits no abnormalities. The central structures are unremarkable. Please correlate clinically. If there is concern for diffuse axonal injuryor otherwise indicated recommend follow-up studies including with MRI whenfeasible. IMPRESSION: Limited study due to motion. No evidence of intracranial hemorrhage or other definite acuteposttraumatic intracranial pathology. Atrophy with chronic ischemic changes. Ordered By: WOODROW DOOLEY Interpreted By: Waldo Tomlinson MD, 01/25/2025 4:23 PM us Woodrow Dooley MD CT Final Resul t * CT CERV SPINE WO CON (01/25/2025 4:18 PM CDT) Anatomical Region Laterality Modality Spine Computed Tomogra phy 01/25/2025 4:19 PM CDT Impressions 01/25/2025 4:22 PM CDT IMPRESSION: 1. No acute bony abnormalities. 2. Degenerative changes of zfah-xh-txgyehrm degree. 3. 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 Ordered By: WOODROW DOOLEY Interpreted By: Waldo Tomlinson MD, 01/25/2025 4:19 PM Narrative 01/25/2025 4:22 PM [address] [place] [address] EXAMINATION: CT Cervical Spine without contrast CLINICAL HISTORY: Fall COMPARISON: No previous TECHNIQUE: CT examination of the cervical spine was performed without contrast. Axial and multiplanar reformatted images were obtained. A dose lowering technique was used for this procedure, which may include, but is not limited to, dose reduction technique, automated exposure control, the use of iterative reconstruction, and ALARA (As Low As Reasonably Achievable) / Image Gently techniques. FINDINGS: There is no malalignment except minimal scoliosis at the cervicothoracic junction. C1 and C2 relation is within normal limits and no malalignment at the atlantooccipital joint. There are no acute bony abnormalities involving the cervical vertebra. Large nuchal ligament calcifications in the mid cervical spine. The facet joints are well aligned. The spinous processes are intact. The contours of the transverse foramen appear also intact. No prevertebral soft tissue swelling. C2-C3: Mild degenerative changes. Mild narrowing of the left neural foramen with mild facet disease. C3-C4: Mild degenerative changes with borderline size of the central canal with mild bulge. Mild narrowing of the neural foramen on the left likely chronic with endplate spurs. C4-C5: Mild degenerative changes. Mild calcified bulge and borderline size of the central canal. Moderate narrowing of the neural foramen worse on the left likely chronic. C5-C6: Degenerative changes with mild calcified bulge. Mild narrowing of the neural foramen with endplate spurs and facet disease likely chronic. C6-C7: No significant central disc abnormalities. No significant stenosis. C7-T1: No significant disc abnormalities. There is no significant stenosis. Within the central canal no abnormal densities. The paraspinal soft tissues show calcifications of the carotids of ztiw-wf-pdzopwsy degree. The lung apex shows as visualized no focal opacities. Procedure Note Waldo Tomlinson MD - 01/25/[address] [place] [address] EXAMINATION: CT Cervical Spine without contrast CLINICAL HISTORY: Fall COMPARISON: No previous TECHNIQUE: CT examination of the cervical spine was performed withoutcontrast. Axial and multiplanar reformatted images were obtained. A doselowering technique was used for this procedure, which may include, but isnot limited to, dose reduction technique, automated exposure control, theuse of iterative reconstruction, and ALARA (As Low As ReasonablyAchievable) / Image Gently techniques. FINDINGS: There is no malalignment except minimal scoliosis at thecervicothoracic junction. C1 and C2 relation is within normal limits andno malalignment at the atlantooccipital joint. There are no acute bonyabnormalities involving the cervical vertebra. Large nuchal ligamentcalcifications in the mid cervical spine. The facet joints are wellaligned. The spinous processes are intact. The contours of the transverseforamen appear also intact. No prevertebral soft tissue swelling. C2-C3: Mild degenerative changes. Mild narrowing of the left neuralforamen with mild facet disease. C3-C4: Mild degenerative changes with borderline size of the central canalwith mild bulge. Mild narrowing of the neural foramen on the left likelychronic with endplate spurs. C4-C5: Mild degenerative changes. Mild calcified bulge and borderline sizeof the central canal. Moderate narrowing of the neural foramen worse onthe left likely chronic. C5-C6: Degenerative changes with mild calcified bulge. Mild narrowing ofthe neural foramen with endplate spurs and facet disease likely chronic. C6-C7: No significant central disc abnormalities. No significantstenosis. C7-T1: No significant disc abnormalities. There is no significantstenosis. Within the central canal no abnormal densities. The paraspinal softtissues show calcifications of the carotids of dcxs-ed-esucbily degree.The lung apex shows as visualized no focal opacities. IMPRESSION: 1. No acute bony abnormalities. 2. Degenerative changes of siiv-tr-riceexcu degree. 3. 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 Ordered By: WOODROW DOOLEY Interpreted By: Waldo Tomlinson MD, 01/25/2025 4:19 PM us Woodrow Dooley MD CT Final Resul t * (ABNORMAL) BETA-HYDROXYBUTYRATE (01/25/2025 4:18 PM CDT) BETA-HYDROXYBU TYRATE 5.1(H) 0.0 - 0.3 MMOL/L 01/25/2025 4:24 PM CDT [facility] 01/25/2025 4:18 PM CDT Woodrow Dooley MD LABORATORY Final Resul t [facility] [place] [address], * (ABNORMAL) Blood gas, venous (01/25/2025 4:18 PM CDT) Pathologist [facility] PH VENOUS 7.30(L) 7.32 - 7.43 01/25/2025 4:51 PM CDT [facility] PCO2 VENOUS 29.0 MMHG 01/25/2025 4:51 PM CDT [facility] Comment:NO REFERENCE RANGE H BEEN ESTABLISHED PO2 VENOUS 33.0 MM HG 01/25/2025 4:51 PM CDT [facility] Comment:NO REFERENCE RANGE H BEEN ESTABLISHED TOTAL CO2 VENOUS 15.2(L) 22.0 - 26.0 MMOL/L 01/25/2025 4:51 PM CDT [facility] BASE DEFICIT VENOUS 10.7 MMOL/L 01/25/2025 4:51 PM CDT [facility] Comment:NO REFERENCE RANGE H BEEN ESTABLISHED O2 SAT VENOUS 56 % 01/25/2025 4:51 PM CDT [facility] Comment:NO REFERENCE RANGE H BEEN ESTABLISHED BICARB VENOUS 14.3(L) 22.0 - 29.0 MMOL/L 01/25/2025 4:51 PM CDT [facility] O2 ADMIN VENOUS ROOM AIR 4:18 PM CDT [facility] 01/25/2025 4:18 PM CDT us Woodrow Dooley MD LABORATORY Final Resul t Performing Organization Address City/[facility]/ZIP Co de Phone Number [facility] [address] [place] [address], * (ABNORMAL) TROPONIN, QUANT (01/25/2025 4:18 PM CDT) Only the most recent of2 resultswithin the time period is included. Pathologist [facility] TROPONIN I HIGH SENSITIVITY 85(H) 0 - 76 ng/L 01/25/2025 4:46 PM CDT [facility] 01/25/2025 4:18 PM CDT us Woodrow Dooley MD LABORATORY Final Resul t [facility] [address] [email or web address] [address], * XR PELVIS 1 OR 2 VIEWS (01/25/2025 4:16 PM CDT) Anatomical Region Laterality Modality Pelvis Radiographic Brianna ging 01/25/2025 4:34 PM CDT Impressions 01/25/2025 4:35 PM CDT IMPRESSION: No malalignment or acute bony abnormalities. Mild degenerative changes at the hip joints and the lower lumbar spine. Ordered By: WOODROW DOOLEY Interpreted By: Waldo Tomlinson MD, 01/25/2025 4:34 PM Narrative 01/25/2025 4:35 PM [address] [place] [address] EXAM: PELVIS - SINGLE VIEW CLINICAL STATEMENT: fall COMPARISON: None available. FINDINGS: There is no malalignment. Mild degenerative changes at the hip joints. No acute bony abnormalities. Mild degenerative changes in the lower lumbar spine. Please correlate clinically. If the patient's symptoms remain unexplained and further needed recommend follow-up with cross-sectional imaging. Procedure Note Waldo Tomlinson MD - 01/25/[address] [place] [address] EXAM: PELVIS - SINGLE VIEW CLINICAL STATEMENT: fall COMPARISON: None available. FINDINGS: There is no malalignment. Mild degenerative changes at the hip joints. Noacute bony abnormalities. Mild degenerative changes in the lower lumbarspine. Please correlate clinically. If the patient's symptoms remain unexplainedand further needed recommend follow-up with cross-sectional imaging. IMPRESSION: No malalignment or acute bony abnormalities. Mild degenerative changes at the hip joints and the lower lumbar spine. Ordered By: WOODROW DOOLEY Interpreted By: Waldo Tomlinson MD, 01/25/2025 4:34 PM Woodrow Dooley MD GENERAL IMAGING Final Resul t * XR CHEST PORTABLE (01/25/2025 4:16 PM CDT) Anatomical Region Laterality Modality Chest Radiographic Brianna ging 01/25/2025 4:25 PM CDT Impressions 01/25/2025 9:13 PM CDT IMPRESSION: Localized patchy areas of opacification, atelectasis with viral infection not excluded. Dictated By: Nara Pritchett MD on 01/25/2025 4:25 PM The attending radiologist has reviewed the image(s) and agrees with the content of this report. Referred By: WOODROW DOOLEY Interpreted By: Nara Pritchett MD, 01/25/2025 4:25 PM Narrative 01/25/2025 9:[address] [place] [id number] [place] [address] Examination: Chest x-ray 1 view Exam time: 01/25/2025 4:16 PM Clinical history: AMS. Comparison: 04/29/2024 and 10/13/2014 XR chest Technique: Single AP supine view was obtained. Findings: Unchanged cardiomediastinal silhouette. The heart size is within normal parameters. There is normal distribution of the prominent pulmonary vasculature. Localized patchy areas of opacification may be due to atelectasis and appear similar to comparison radiograph from 10/13/2014, though viral infection cannot be excluded. No lobar consolidations are identified. There are no pleural effusions. There is no pneumothorax. No acute osseous abnormality is identified. Procedure Note Daren Waters MD - 01/25/2025 [place] [address] [place] [place] [address] [place] [address] [place] [address] Examination: Chest x-ray 1 view Exam time: 01/25/2025 4:16 PM Clinical history: AMS. Comparison: 04/29/2024 and 10/13/2014 XR chest Technique: Single AP supine view was obtained. Findings: Unchanged cardiomediastinal silhouette. The heart size is within normalparameters. There is normal distribution of the prominent pulmonaryvasculature. Localized patchy areas of opacification may be due toatelectasis and appear similar to comparison radiograph from 10/13/2014,though viral infection cannot be excluded. No lobar consolidations areidentified. There are no pleural effusions. There is no pneumothorax. Noacute osseous abnormality is identified. IMPRESSION: Localized patchy areas of opacification, atelectasis with viral infectionnot excluded. Dictated By: Nara Pritchett MD on 01/25/2025 4:25 PM The attending radiologist has reviewed the image(s) and agrees with thecontent of this report. Referred By: WOODROW DOOLEY Interpreted By: Nara Pritchett MD, 01/25/2025 4:25 PM us Woodrow Dooley MD GENERAL IMAGING Final Resul t * ECG 12 lead (01/25/2025 3:33 PM CDT) 01/25/2025 3:33 PM CDT Narrative [facility] - 01/26/2025 9:34 AM CDT [place] [address] [place] 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1945 Requested By: WOODROW DOOLEY Order Number: [id number] Reading MD: Brandon Chavez Measurements Intervals [place] Rate: 116 P: 75 [place]: 119 QRS: 65 QRSD: 80 T: 58 QT: 345 QTc: 480 Interpretive Statements SINUS TACHYCARDIA WITH SHORT [place] INTERVAL WITH FREQUENT SUPRAVENTRICULAR PREMATURE COMPLEXES ABNORMAL RHYTHM ECG noise Woodrow Dooley MD ECG ORDERABLES Final Resul t Performing Organization Address [facility] de Phone Number [facility] * (ABNORMAL) PRO-BRAIN NATRIURETIC PEPTIDE (01/25/2025 3:13 PM CDT) PRO-B TYPE NATRIURETIC PEPTIDE 1,018(H) <450 PG/ML 01/25/2025 3:59 PM CDT [facility] Comment: CUT POINTS ESTABLISHED BY [employer] ON NT PROBNP (ICON) STUDY (2006). AGE INDEPENDENT: <300 PG/ML HAS A 99% NEGATIVE PREDICTIVE VALUE FOR EXCLUDING ACUTE CHF <50 YEARS: >450 PG/ML IS CONSISTENT WITH ACUTE CHF 50-75 YEARS: >900 PG/ML IS CONSISTENT WITH ACUTE CHF >75 YEARS: >1800 PG/ML IS CONSISTENT WITH ACUTE CHF IN PATIENTS WITH RENAL INSUFFICIENCY (GFR <60), >1200 PG/ML YIELDS A DIAGNOSTIC SENSITIVITY AND SPECIFICITY OF 89% AND 72% FOR ACUTE CHF. 01/25/2025 3:13 PM CDT Woodrow Dooley MD LABORATORY Final Resul t Performing Organization Address City/[facility] Co de Phone Number [facility] [address] [place] [id number], * PROTIME/INR, VENOUS (01/25/2025 3:13 PM CDT) PROTIME 11.6 9.4 - 12.5 SEC 01/25/2025 3:28 PM CDT [facility] INR 1.0 0.8 - 1.0 01/25/2025 3:28 PM CDT [facility] 01/25/2025 3:13 PM CDT Woodrow Dooley MD LABORATORY Final Resul t Performing Organization Address City/[facility] Co de Phone Number [facility] [place] [address], * (ABNORMAL) COMPREHENSIVE METABOLIC PANEL (01/25/2025 3:13 PM CDT) SODIUM S/P/B 145 136 - 145 MMOL/L 01/25/2025 3:59 PM CDT [facility] POTASSIUM S/P/B 3.9 3.5 - 5.1 MMOL/L 01/25/2025 3:59 PM CDT [facility] CHLORIDE S/P/B 104 98 - 107 MMOL/L 01/25/2025 3:59 PM CDT [facility] CO2 17.2(L) 21.0 - 32.0 MMOL/L 01/25/2025 3:59 PM CDT [facility] GLUCOSE 437(H) 70 - 99 MG/DL 01/25/2025 3:59 PM CDT [facility] Comment: FASTING GLUCOSE 100 TO 125 MG/DL IS CONSISTENT WITH IMPAIRED FASTING GLUCOSE. FASTING GLUCOSE >125 MG/DL IS CONSISTENT WITH DIABETES. RANDOM GLUCOSE >200 MG/DL WITH HYPERGLYCEMIC SYMPTOMS IS CONSISTENT WITH DIABETES. PER ADA GUIDELINES BUN 42(H) 6 - 24 MG/DL 01/25/2025 3:59 PM CDT [facility] CREATININE S/P/B 1.56(H) 0.70 - 1.30 MG/DL 01/25/2025 3:59 PM CDT [facility] CALCIUM S/P/B 9.7 8.4 - 10.5 MG/DL 01/25/2025 3:59 PM CDT [facility] BILIRUBIN TOTAL S/P/B 0.7 0.2 - 1.0 MG/DL 01/25/2025 3:59 PM CDT [facility] Comment: THIS ASSAY IS NOT RECOMMENDED FOR PATIENTS UNDERGOING TREATMENT WITH ELTROMBOPAG DUE TO THE POTENTIAL FOR FALSELY ELEVATED RESULTS. ALKALINE PHOSPHATASE S/P/B 72 45 - 115 U/L 01/25/2025 3:59 PM CDT [facility] AST 38(H) 15 - 37 U/L 01/25/2025 3:59 PM CDT [facility] ALT 36 16 - 63 U/L 01/25/2025 3:59 PM CDT [facility] TOTAL PROTEIN S/P/B 8.2 6.4 - 8.2 G/DL 01/25/2025 3:59 PM CDT [facility] ALBUMIN S/P/B 4.1 3.4 - 5.0 G/DL 01/25/2025 3:59 PM CDT [facility] ANION GAP 23.8(H) 5.0 - 15.0 MMOL/L 01/25/2025 3:59 PM T [facility] OSMOLALITY (CALC) 329 MOSM/KG 025 3:59 PM T [facility] Comment:REFERENCE RANGE NOT ESTABLISHED GFR ESTIMATE 45(L) >89 ML/MIN/1. 73 M2 01/25/2025 3:59 PM CDT [facility] GFR NOTES GFR REFERENCE S: 01/25/2025 3:59 PM T [facility] Comment: THE ESTIMATED GFR IS CALCULATED USING THE 2020 CKD-EPI EQUATION. THE FOLLOWING CATEGORIES FOR GRADING RENAL FUNCTION ARE RECOMMENDED BY THE INTERNATIONAL SOCIETY OF NEPHROLOGY (KDIGO 2012 CLINICAL PRACTICE GUIDELINE). G1,NORMAL OR HIGH: >89 ml/min/1.73 m2 G2,MILDLY DECREASED: 60-89 ml/min/1.73 m2 G3A,MILDLY TO MODERATELY DECREASED: 45-59 ml/min/1.73 m2 G3B,MODERATELY TO SEVERELY DECREASED: 30-44 ml/min/1.73 m2 G4,SEVERELY DECREASED: 15-29 ml/min/1.73 m2 G5,KIDNEY FAILURE: <15 ml/min/1.73 m2 01/25/2025 3:13 PM CDT us Woodrow Dooley MD LABORATORY Final Resul t [facility] [address] [place] [address], * (ABNORMAL) CBC W/DIFF AUTOMATED (01/25/2025 3:13 PM CDT) WBC 7.69 4.00 - 10.80 x10'3/uL 01/25/2025 3:21 PM CDT [facility] RBC 5.16 4.50 - 6.10 x10'6/uL 01/25/2025 3:21 PM CDT [facility] HGB 15.3 13.0 - 18.0 G/DL 01/25/2025 3:21 PM CDT [facility] HCT 43.3 37.0 - 52.0 % 01/25/2025 3:21 PM CDT [facility] MCV 83.9 78.0 - 100.0 FL 01/25/2025 3:21 PM CDT [facility] MCH 29.7 27.0 - 31.0 PG 01/25/2025 3:21 PM CDT [facility] MCHC 35.3 33.0 - 36.0 G/DL 01/25/2025 3:21 PM CDT [facility] RDW 13.4 11.5 - 14.5 % 01/25/2025 3:21 PM CDT [facility] PLT 220 150 - 350 x10'3/uL 01/25/2025 3:21 PM CDT [facility] MPV 10.8(H) 7.4 - 10.4 FL 01/25/2025 3:21 PM CDT [facility] CBC COMMENT NORMAL REFERENCE RANGE NOT ESTABLISHED FOR THE PROPORTIONAL LEUKOCYTE DIFFERENTIAL. 01/25/2025 3:21 PM CDT [facility] NEUTROPHILS % 77.6 % 01/25/2025 3:21 PM CDT [facility] LYMPHOCYTES % 9.2 % 01/25/2025 3:21 PM CDT [facility] MONOCYTES % 12.7 % 01/25/2025 3:21 PM CDT [facility] EOSINOPHILS % 0.0 % 01/25/2025 3:21 PM CDT [facility] BASOPHILS % 0.1 % 01/25/2025 3:21 PM CDT [facility] IMMATURE GRANS % 0.4 % 01/26/20 3:21 PM CDT [facility] NRBC % 0.0 % 01/25/2025 3:21 PM CDT [facility] ABS. NEUTROPHILS 5.96 1.60 - 8.30 x10'3/uL 01/25/2025 3:21 PM CDT [facility] ABS. LYMPHOCYTES 0.71(L) 0.80 - 4.70 x10'3/uL 01/25/2025 3:21 PM CDT [facility] ABS. MONOCYTES 0.98 0.00 - 1.50 x10'3/uL 01/25/2025 3:21 PM CDT [facility] ABS. EOSINOPHILS 0.00 0.00 - 0.40 x10'3/uL 01/25/2025 3:21 PM CDT [facility] ABS. BASOPHILS 0.01 0.00 - 0.20 x10'3/uL 01/25/2025 3:21 PM CDT [facility] ABS. IMMATURE GRANULOCYTES 0.03 0.00 - 0.03 x10'3/uL 01/25/2025 3:21 PM CDT [facility] ABS. NUCLEATED RBC'S 0.00 0.00 - 0.01 x10'3/uL 01/25/2025 3:21 PM CDT [facility] 01/25/2025 3:13 PM CDT us Woodrow Dooley MD LABORATORY Final Resul t Performing Organization Address City/[facility] Co de Phone Number [facility] [address] [place] [address], * (ABNORMAL) THYROID STIM HORMONE, TSH (01/25/2025 3:13 PM CDT) TSH 0.098(L) 0.358 - 3.740 uIU/ML 01/25/2025 3:59 PM CDT [facility] Comment: ASSAY PERFORMED BY CHEMILUMINESCENT IMMUNOASSAY METHODOLOGY USING [employer] REAGENT. PATIENT RESULTS DETERMINED BY ASSAYS FROM DIFFERENT MANUFACTURERS AND/OR BY DIFFERENT METHODS MAY NOT BE COMPARABLE. 01/25/2025 3:13 PM CDT us Woodrow Dooley MD LABORATORY Final Resul t Performing Organization Address City/[facility] Co de Phone Number [facility] [address] [place] [address], * PHOSPHORUS, INORGANIC PHOSPHATE (01/25/2025 3:13 PM CDT) PHOSPHORUS 3.9 2.6 - 4.7 MG/DL 01/25/2025 5:31 PM CDT [facility] 01/25/2025 3:13 PM CDT us Woodrow Dooley MD LABORATORY Final Resul t Performing Organization Address City/[facility] Co de Phone Number [facility] [address] [place] [address], * MAGNESIUM (01/25/2025 3:13 PM CDT) Only the most recent of2 resultswithin the time period is included. MAGNESIUM 2.0 1.8 - 2.4 MG/DL 01/25/2025 5:31 PM CDT [facility] 01/25/2025 3:13 PM CDT us Woodrow Dooley MD LABORATORY Final Resul t Performing Organization Address [facility] [place] [address], * (ABNORMAL) SALICYLATE (01/25/2025 3:13 PM CDT) SALICYLATES 2.2(L) 2.8 - 20.0 MG/DL 01/25/2025 3:59 PM CDT [facility] 01/25/2025 3:13 PM CDT us Woodrow Dooley MD LABORATORY Final Resul t Performing Organization Address [facility] Co de Phone Number [facility] [address] [place] [address], * ETHANOL (01/25/2025 3:13 PM CDT) ALCOHOL S/P/B <0.003 <0.003 G/DL 01/25/2025 3:59 PM CDT [facility] 01/25/2025 3:13 PM CDT us Woodrow Dooley MD LABORATORY Final Resul t Performing Organization Address City/[facility] Co de Phone Number [facility] [address] [place] [address], * (ABNORMAL) CK (CPK) (01/25/2025 3:13 PM CDT) CPK 383(H) 39 - 308 U/L 01/25/2025 3:59 PM CDT [facility] 01/25/2025 3:13 PM CDT Woodrow Dooley MD LABORATORY Final Resul t Performing Organization Address City/[facility]/ZIP Co de Phone Number [facility] [place] [address], * (ABNORMAL) ACETAMINOPHEN (01/25/2025 3:13 PM CDT) ACETAMINOPHEN S/P/B 0.0(L) 10.0 - 30.0 MCG/ML 01/25/2025 3:59 PM CDT [facility] 01/25/2025 3:13 PM CDT Woodrow Dooley MD LABORATORY Final Resul t Performing Organization Address [facility] Co de Phone Number [facility] [address] [place] [address], * Critical Care (01/25/2025 2:44 PM CDT) Woodrow Miguel MD - 01/25/2025 2:44 PM CDT Woodrow Dooley MD 01/26/2025 6:41 PM Critical Care Performed by: Woodrow Dooley MD Authorized by: Woodrow Dooley MD Critical care provider statement: Critical care time (minutes): 75 Critical care was necessary to treat or prevent imminent or life-threatening deterioration of the following conditions: Metabolic crisis Critical care was time spent personally by me on the following activities: Evaluation of patient's response to treatment, examination of patient, ordering and performing treatments and interventions, ordering and review of laboratory studies, ordering and review of radiographic studies and re-evaluation of patient's condition Care discussed with: accepting provider at another facility Woodrow Dooley MD PROCEDURE/MINOR SURGICAL OR DERABLES Final Result * (ABNORMAL) LIPID PANEL (08/14/2023 12:40 PM CDT) CHOLESTEROL 186 <200 MG/DL 08/14/2023 1:11 PM CDT [facility] Comment: THE NATIONAL LIPID ASSOCIATION AND THE NATIONAL CHOLESTEROL EDUCATION PROGRAM (NCEP) HAVE SET THE FOLLOWING GUIDELINES FOR TOTAL CHOLESTEROL IN ADULTS AGES 18 AND UP. DESIRABLE: <200 BORDERLINE HIGH: 200-239 HIGH: > OR = 240 TRIGLYCERIDES 314(H) <150 MG/DL 08/14/2023 1:11 PM CDT [facility] Comment: THE NATIONAL LIPID ASSOCIATION AND THE NATIONAL CHOLESTEROL EDUCATION PROGA (NCEP) HAVE SET THE FOLLOWING GUIDELINES FOR TRIGLYCERIDES IN ADULTS AGES 18 AND UP. NORMAL: <150 BORDERLINE HIGH: 150 TO 199 HIGH: 200 TO 499 VERY HIGH: >499 HDL 43 >39 MG/DL 08/14/2023 1:11 PM CDT [facility] Comment: THE NATIONAL LIPID ASSOCIATION AND THE NATIONAL CHOLESTEROL EDUCATION PROGAM (NCEP) HAVE SET THE FOLLOWING GUIDELINES FOR HDL CHOLESTEROL IN ADULTS AGES 18 AND UP. MALES: >39 FEMALES: >49 LDL-C 80 <100 MG/DL 08/14/2023 1:11 PM CDT [facility] Comment: THE NATIONAL LIPID ASSOCIATION AND THE NATIONAL CHOLESTEROL EDUCATION PROGA (NCEP) HAVE SET THE FOLLOWING GUIDELINES FOR LDL CHOLESTEROL IN ADULTS AGES 18 AND UP. DESIRABLE: <100 ABOVE DESIRABLE: 100 TO 129 BORDERLINE HIGH: 130 TO 159 HIGH: 160 TO 189 VERY HIGH: >189 VLDL CALCULATION 63 MG/DL 08/14/20 23 1:11 PM CDT [facility] Comment:REFERENCE RANGE NOT ESTABLISHED CHOL/HDL RATIO 4.3 08/14/2023 1:11 PM CDT [facility] Comment:REFERENCE RANGE NOT ESTABLISHED LDL/HDL 1.9 08/14/2023 1:11 PM CDT [facility] Comment:REFERENCE RANGE NOT ESTABLISHED NON HDL CHOLESTEROL 143 MG/DL 08/14/2023 1:11 PM CDT [facility] Comment:REFERENCE RANGE NOT ESTABLISHED 08/14/2023 12:4 0 PM CDT Fam Miller MD LABORATORY Final Result [facility] [address] [place] [address], from Last 3 Months or Most Recently Relevant to Health Maintenance Insurance MEDICARE Care Teams Branch Billing Payroll Clerk Relationship Specialty Start Date End Date Fam Miller MD [address] [place] [phone] PCP - General INTERNAL MEDICINE 12/25/22 Kellie Fermin, [facility]- [address] [place] [id number] Nurse Practitioner NURSE PRACTITIONER ADULT HEALTH 02/14/24 Fredrick Camarena MD [address] [facility] [address] [place] [address] Physician INTERVENTIONAL CARDIOLOGY 01/02/25
--- OUTSIDE RECORDS SUMMARY | 2025-02-23 16:43 | XMS_ITS | Clinical Summary ---
Author Organization [facility] Address [address] [place] [address] Phone Care Team Providers Care Certified Ophthalmic Technician Name Role Phone Unavailable Primary Care Provider Unavailabl e Allergies Active Allergy Reactions Criticality Noted Date Comments Fluoxetine Nausea and Vomiting Low 01/25/2025 Meloxicam Other (See Comments) 01/25/2025 GI upset Nortriptyline Unknown 01/25/2025 Omeprazole Dizziness Low 01/25/2025 Medications atorvastatin (LIPITOR) 40 mg tablet Take 40 mg by mouth daily. Active metFORMIN (GLUCOPHAGE) 500 mg tablet Take 500 mg by mouth 2 times daily with meals. Active insulin lispro (HumaLOG,ADMEL OG) 100 unit/mL pen syringe Inject 0-6 Units by subcutaneous injection 3 times daily with meals. Give when NPO or WITH MEAL. CONTACT PHYSICIAN/REMA - If blood sugar greater than 250 mg/dL - If blood sugar greater than 180 mg/dL for two consecutive readings Low-Dose Meal Correction: Less than or equal to 180 = no correctional insulin 181 - 200 = give and/or add 1 unit 201 - 250 = give and/or add 2 units 251 - 300 = give and/or add 3 units 301 - 350 = give and/or add 4 units 351 - 400 = give and/or add 5 units 401 and greater = give and/or add 6 units 02/04/20 25 Active thiamine mononitrate (VITAMIN B-1) 100 mg tablet Take 1 Tablet (100 mg) by mouth daily. 02/05/20 25 025 Active pyridoxine (VITAMIN B6) 50 mg tablet Take 1 Tablet (50 mg) by mouth daily. 02/05/20 25 Active mirtazapine (REMERON) 7.5 mg tablet Take 1 Tablet (7.5 mg) by mouth daily at bedtime. 02/05/20 Active propranoloL (INDERAL) 10 mg tablet Take 1 Tablet (10 mg) by mouth every 8 hours. 02/08/20 Active insulin glargine (LANTUS) 100 unit/mL pen syringe Inject 15 Units by subcutaneous injection 2 times daily. 02/10/20 Active insulin lispro (HumaLOG,ADMEL OG) 100 unit/mL pen syringe Inject 7 Units by subcutaneous injection 3 times daily with meals. 02/10/20 Active OLANZapine (ZyPREXA ZYDIS) 5 mg Tablet, Rapid Dissolve Take 1 Tablet (5 mg) by mouth daily at bedtime. 02/10/20 Active ARIPiprazole (ABILIFY) 2 mg tablet Take 2 mg by mouth daily. Discontinued hydrOXYzine HCL (ATARAX) 25 mg tablet Take 25 mg by mouth 3 times daily as needed for Itching. Discontinued oxyCODONE-acet aminophen (PERCOCET) 10-325 mg Tablet Take 1 Tablet by mouth every 4 hours as needed for Pain, Severe. Discontinued pregabalin (LYRICA) 200 mg Capsule Take 200 mg by mouth every 8 hours. Discontinued propranoloL (INDERAL) 10 mg tablet Take 15 mg by mouth daily at bedtime. Discontinued temazepam (RESTORIL) 15 mg capsule Take 15 mg by mouth nightly as needed. Discontinued temazepam (RESTORIL) 7.5 mg capsuleIndicat ions:Abnormal CT of the chest Take 1 Capsule (7.5 mg) by mouth nightly as needed for Insomnia. 02/04/20 Discontinued Active Problems Problem Noted Date Diagnosed Date Delirium due to multiple etiologies 02/06/2025 Insomnia due to other mental disorder 02/06/2025 SHIRA (generalized anxiety disorder) 02/06/2025 Unable to care for self 02/06/2025 Cognitive impairment 02/06/2025 Protein-calorie malnutrition, moderate DKA (diabetic ketoacidosis) 01/25/2025 Acute renal failure 01/25/2025 Increased anion gap metabolic acidosis Benign essential HTN 01/25/2025 CAD (coronary atherosclerotic disease) Anxiety and depression 01/25/2025 Acute metabolic encephalopathy 01/25/2025 Encounters Date Type Department Care Team Description 02/10/2025 External Device Data [facility] Provider, Abstract 02/09/2025 Travel 01/27/2025 External Device Data [facility] Provider, Abstract 01/27/2025 External Device Data [facility] Provider, Abstract 01/27/2025 External Device Data [facility] Provider, Abstract 01/25/2025 10:17 PM CDT - 02/09/2025 3:24 PM CDT Hospital Encounter [address] [place] [address] Denis Song, DO Harris, MD Robinson Cortez Tiago, MD Hilliard, MD Antonio Nuñez Kamran A, MD DKA (diabetic ketoacidosis) ([facility]) Discharge Disposition: Rehab Facility IP from Last 3 Months Social History Tobacco Use Types Packs/Day Years Used Date Smoking Tobacco: Never Assessed Feeling Safe Answer Date Recorded Are you in a relationship wi th someone who hurts you emotionally and/or physically? Patient unable to answer 02/09/2025 Food Insecurity Answer Date Recorded Patient needs follow up regardin 02/18/2025 Transportation Needs Answer Date Record ed Patient needs follow up regardin 02/18/2025 Housing Stability Answer Date Recorded Social/Environmental Concerns No concerns Utility Needs Answer Date Recorded Patient needs follow up regardin 02/18/2025 Sex and Gender Information Value Date Recorded Sex Assigned at Not on file Legal Sex Male 5:14 PM CDT Gender Identity Not on file Sexual Orientation Not on file Last Filed Vital Signs Vital Sign Reading Time Taken Comments Blood Pressure 138/62 02/09/2025 12:32 PM CDT Pulse 103 02/09/2025 12:32 PM CDT Temperature 36.9 C (98.4 F) 02/09/2025 12:32 PM CDT Respiratory Rate 18 02/09/2025 4:12 AM CDT Oxygen Saturation 98% 02/09/2025 12: 32 PM CDT Inhaled Oxygen Concentration - - Weight 73.8 kg (162 lb 11.2 oz) 02/06/2025 5:00 AM CDT Height 182.9 cm (6') 01/25/2025 11:17 PM CDT Body Mass Index 22.07 01/25/2025 11:17 PM CDT Plan of Treatment Health Maintenance Due Date Last Done Comments DIABETES ANNUAL FOOT EXAM 1964 DIABETES ANNUAL RETINAL EXAM 1964 DIABETES MICROALBUMIN ANNUAL SCREEN 1964 LDL CHOLESTEROL ANNUAL 1964 DTAP/TDAP/TD VACCINES (1 - Tdap) 1965 PNEUMOCOCCAL VACCINE 50+ YEA RS (1 of 2 - PCV) 1965 Traditional Medicare (ACO) A nnual Wellness Visit 1965 ZOSTER VACCINE (1 of 2) 1996 RSV VACCINE (60+ or ) (1 - 1-dose 75+ series) 2021 INFLUENZA VACCINE (#1) 2024 DIABETES HBA1C Q 6 MONTHS 07/28/2025 01/25/2025, Procedures Procedure Name Priority Date/Time Associated Diagnosis Comments TELEMETRY REPORT 02/11/2025 4:09 PM CDT POC GLUCOSE Routine 02/09/2025 12:39 PM CDT POC GLUCOSE Routine 02/09/2025 8:04 AM CDT POC GLUCOSE Routine 02/09/2025 2:10 AM CDT POC GLUCOSE Routine 02/08/2025 8:45 PM CDT POC GLUCOSE Routine 02/08/2025 4:48 PM CDT POC GLUCOSE Routine 02/08/2025 12:35 PM CDT POC GLUCOSE Routine 02/08/2025 8:12 AM CDT POC GLUCOSE Routine 02/08/2025 2:09 AM CDT POC GLUCOSE Routine 02/07/2025 11:16 PM CDT POC GLUCOSE Routine 02/07/2025 7:39 PM CDT POC GLUCOSE Routine 02/07/2025 1:45 PM CDT POC GLUCOSE Routine 02/07/2025 1:40 PM CDT POC GLUCOSE Routine 02/07/2025 8:03 AM CDT EKG 12-LEAD Routine 02/06/2025 11:02 PM CDT POC GLUCOSE Routine 02/06/2025 5:53 PM CDT COMPREHENSIVE METABOLIC PANEL Routine 02/06/2025 11:23 AM CDT POC GLUCOSE Routine 02/06/2025 11:22 AM CDT CBC WITH DIFFERENTIAL Routine 02/06/2025 11:22 AM CDT TROPONIN 6 HR, 5TH GEN Timed Study 11:50 PM CDT POC GLUCOSE Routine 02/05/2025 9:33 PM CDT TROPONIN 2 HR, 5TH GEN Timed Study 8:52 PM CDT POC GLUCOSE Routine 02/05/2025 5:55 PM CDT MAGNESIUM LEVEL Routine 02/05/2025 5:53 PM CDT BASIC METABOLIC PANEL Routine 02/05/2025 5:53 PM CDT TROPONIN BASELINE, 5TH GEN Stat 02/05/2025 5:53 PM CDT EKG 12-LEAD Stat 02/05/2025 4:30 PM CDT POC GLUCOSE Routine 02/05/2025 1:45 PM CDT POC GLUCOSE Routine 02/05/2025 9:42 AM CDT POC GLUCOSE Routine 02/04/2025 10:32 PM CDT POC GLUCOSE Routine 02/04/2025 6:30 PM CDT COMPREHENSIVE METABOLIC PANEL Stat 02/04/2025 3:09 PM CDT POC GLUCOSE Routine 02/04/2025 12:14 PM CDT POC GLUCOSE Routine 02/04/2025 9:01 AM CDT POC GLUCOSE Routine 02/04/2025 8:38 AM CDT POC GLUCOSE Routine 02/03/2025 5:31 PM CDT POC GLUCOSE Routine 02/03/2025 11:54 AM CDT POC GLUCOSE Routine 02/03/2025 8:55 AM CDT POC GLUCOSE Routine 02/02/2025 11:41 PM CDT POC GLUCOSE Routine 02/02/2025 5:41 PM CDT POC GLUCOSE Routine 02/02/2025 9:23 AM CDT BASIC METABOLIC PANEL Routine 02/02/2025 4:23 AM CDT PHOSPHORUS Routine 02/02/2025 4:23 AM CDT MAGNESIUM LEVEL Routine 02/02/2025 4:23 AM CDT CBC WITH DIFFERENTIAL Routine 02/02/2025 4:23 AM CDT MRI BRAIN W WO CONTRAST Routine 02/02/2025 3:03 AM CDT POC GLUCOSE Routine 02/01/2025 11:40 PM CDT POC GLUCOSE Routine 02/01/2025 5:42 PM CDT POC GLUCOSE Routine 02/01/2025 12:22 PM CDT XR ABDOMEN 1 VW Routine 02/01/2025 8:31 AM CDT POC GLUCOSE Routine 02/01/2025 8:21 AM CDT BASIC METABOLIC PANEL Routine 02/01/2025 5:36 AM CDT PHOSPHORUS Routine 02/01/2025 5:36 AM CDT MAGNESIUM LEVEL Routine 02/01/2025 5:36 AM CDT CBC WITH DIFFERENTIAL Routine 02/01/2025 5:36 AM CDT POC GLUCOSE Routine 01/31/2025 10:23 PM CDT POC GLUCOSE Routine 01/31/2025 6:01 PM CDT POC GLUCOSE Routine 01/31/2025 2:32 PM CDT POC GLUCOSE Routine 01/31/2025 8:20 AM CDT POC GLUCOSE Routine 01/31/2025 7:14 AM CDT POC GLUCOSE Routine 01/31/2025 6:50 AM CDT BASIC METABOLIC PANEL Routine 01/31/2025 3:43 AM CDT PHOSPHORUS Routine 01/31/2025 3:43 AM CDT MAGNESIUM LEVEL Routine 01/31/2025 3:43 AM CDT CBC WITH DIFFERENTIAL Routine 01/31/2025 3:43 AM CDT POC GLUCOSE Routine 01/30/2025 9:53 PM CDT POC GLUCOSE Routine 01/30/2025 8:10 PM CDT TROPONIN 6 HR, 5TH GEN Timed Study 6:48 PM CDT POTASSIUM LEVEL Routine 01/30/2025 6:48 PM CDT POC GLUCOSE Routine 01/30/2025 6:47 PM CDT POC GLUCOSE Routine 01/30/2025 6:44 PM CDT TROPONIN 2 HR, 5TH GEN Timed Study 12:50 PM CDT POC GLUCOSE Routine 01/30/2025 12:41 PM CDT XR VIDEO SWALLOW W SPEECH Routine 01/30/2025 12:08 PM CDT TROPONIN BASELINE, 5TH GEN Stat 01/30/2025 10:40 AM CDT EKG 12-LEAD Routine 01/30/2025 10:23 AM CDT POC GLUCOSE Routine 01/30/2025 7:36 AM CDT POC GLUCOSE Routine 01/30/2025 6:59 AM CDT POC GLUCOSE Routine 01/30/2025 6:19 AM CDT POC GLUCOSE Routine 01/30/2025 5:59 AM CDT BASIC METABOLIC PANEL Routine 01/30/2025 3:54 AM CDT PHOSPHORUS Routine 01/30/2025 3:54 AM CDT MAGNESIUM LEVEL Routine 01/30/2025 3:54 AM CDT CBC WITH DIFFERENTIAL Routine 01/30/2025 3:54 AM CDT POC GLUCOSE Routine 01/29/2025 9:12 PM CDT POC GLUCOSE Routine 01/29/2025 5:20 PM CDT EEG Routine 01/29/2025 5:14 PM CDT POC GLUCOSE Routine 01/29/2025 2:34 PM CDT POC GLUCOSE Routine 01/29/2025 12:43 PM CDT COMPREHENSIVE METABOLIC PANEL Routine 01/29/2025 11:33 AM CDT PHOSPHORUS Routine 01/29/2025 11:33 AM CDT MAGNESIUM LEVEL Routine 01/29/2025 11:33 AM CDT CBC WITH DIFFERENTIAL Routine 01/29/2025 11:33 AM CDT POC GLUCOSE Routine 01/29/2025 8:51 AM CDT POC GLUCOSE Routine 01/29/2025 8:37 AM CDT OSMOLALITY, URINE Routine 01/29/2025 5:4 3 AM CDT ELECTROLYTES, RANDOM URINE Routine 01/29/2025 5:43 AM CDT URINALYSIS W/REFLEX MICROSCOPIC Routine 01/29/2025 5:43 AM CDT POC GLUCOSE Routine 01/29/2025 4:29 AM CDT POC GLUCOSE Routine 01/28/2025 11:58 PM CDT PARANEOPLASTIC PROFILE, SERUM Routine 01/28/2025 9:28 PM CDT POC GLUCOSE Routine 01/28/2025 8:30 PM CDT US RENAL AND BLADDER Routine 01/28/2025 8:17 PM CDT XR ABDOMEN FOR FEEDING TUBE 1 VW Stat 01/28/2025 6:24 PM CDT POC GLUCOSE Routine 01/28/2025 5:18 PM CDT ANGIOTENSIN CONVERTING ENZYME Routine 01/28/2025 4:34 PM CDT AMMONIA LEVEL Routine 01/28/2025 4:34 PM CDT COMPREHENSIVE METABOLIC PANEL Routine 01/28/2025 4:34 PM CDT US VENOUS DOPPLER LEG BILATERAL Routine 01/28/2025 3:22 PM CDT XR ABDOMEN FOR FEEDING TUBE 1 VW Stat 01/28/2025 12:50 PM CDT PROCALCITONIN Routine 01/28/2025 11:24 AM CDT POC GLUCOSE Routine 01/28/2025 11:02 AM CDT MRI BRAIN WO CONTRAST Routine 01/28/2025 10:31 AM CDT CTA CHEST W AND/OR WO CONTRAST Routine 01/28/2025 10:14 AM CDT C. DIFFICILE DETECTION Routine 9:15 AM CDT POC GLUCOSE Routine 01/28/2025 4:49 AM CDT T3 FREE Routine 01/28/2025 3:33 AM CDT T4 FREE Routine 01/28/2025 3:33 AM CDT TSH REFLEXIVE Routine 01/28/2025 3:33 AM CDT MAGNESIUM LEVEL Routine 01/28/2025 3:33 AM CDT BASIC METABOLIC PANEL Routine 01/28/2025 3:33 AM CDT CBC WITH DIFFERENTIAL Routine 01/28/2025 3:33 AM CDT POC GLUCOSE Routine 01/28/2025 12:06 AM CDT POC GLUCOSE Routine 01/27/2025 8:11 PM CDT EKG 12-LEAD Routine 01/27/2025 4:35 PM CDT RESPIRATORY PATHOGEN PCR PANEL Routine 01/27/2025 4:28 PM CDT MRSA PCR RAPID SCREEN Routine 01/27/2025 4:28 PM CDT POC GLUCOSE Routine 01/27/2025 4:25 PM CDT ENCEPHALOPATHY, AUTOIMMUNE EVALUATION, CSF Routine 01/27/2025 4:20 PM CDT SPINAL FLUID CELL COUNT W/REFLEX DIFFERENTIAL Routine 01/27/2025 4:20 PM CDT SPINAL FLUID CULTURE WITH GRAM STAIN Routine 01/27/2025 4:20 PM CDT XR CHEST PA OR AP 1 VW Routine 1:19 PM CDT VITAMIN B12 AND FOLATE Routine 12:58 PM CDT RPR Routine 01/27/2025 12:58 PM CDT POC GLUCOSE Routine 01/27/2025 12:47 PM CDT [facility] EVALUATE AND TREAT Routine 11:09 AM CDT POC GLUCOSE Routine 01/27/2025 8:44 AM CDT CBC WITH DIFFERENTIAL Routine 01/27/2025 7:11 AM CDT HEPATIC FUNCTION PANEL Routine 4:41 AM CDT C-REACTIVE PROTEIN Routine 01/27/2025 4: 41 AM CDT BASIC METABOLIC PANEL Routine 01/27/2025 4:41 AM CDT POC GLUCOSE Routine 01/27/2025 4:39 AM CDT POC GLUCOSE Routine 01/27/2025 12:40 AM CDT PHOSPHORUS Timed Study 01/26/2025 8:18 PM CDT BASIC METABOLIC PANEL Timed Study 01/26/2025 8:18 PM CDT POC GLUCOSE Routine 01/26/2025 7:16 PM CDT POC GLUCOSE Routine 01/26/2025 5:41 PM CDT POC GLUCOSE Routine 01/26/2025 4:35 PM CDT CK Timed Study 01/26/2025 4:21 PM CDT POC GLUCOSE Routine 01/26/2025 3:28 PM CDT XR CHEST PA OR AP 1 VW Routine 2:40 PM CDT POC GLUCOSE Routine 01/26/2025 2:29 PM CDT POC GLUCOSE Routine 01/26/2025 1:28 PM CDT POC GLUCOSE Routine 01/26/2025 12:41 PM CDT DRUG SCREEN, URINE Routine 01/26/2025 12 :34 PM CDT LACTIC ACID Timed Study 01/26/2025 12:34 PM CDT BASIC METABOLIC PANEL Timed Study 01/26/2025 12:34 PM CDT URINALYSIS W/REFLEX MICROSCOPIC Routine 01/26/2025 12:34 PM CDT POC GLUCOSE Routine 01/26/2025 11:28 AM CDT POC GLUCOSE Routine 01/26/2025 10:33 AM CDT POC GLUCOSE Routine 01/26/2025 9:31 AM CDT POC GLUCOSE Routine 01/26/2025 8:32 AM CDT POC GLUCOSE Routine 01/26/2025 7:17 AM CDT BASIC METABOLIC PANEL Routine 01/26/2025 6:55 AM CDT POC GLUCOSE Routine 01/26/2025 6:45 AM CDT POC GLUCOSE Routine 01/26/2025 5:38 AM CDT POC GLUCOSE Routine 01/26/2025 4:35 AM CDT POC GLUCOSE Routine 01/26/2025 3:32 AM CDT BASIC METABOLIC PANEL Routine 01/26/2025 3:10 AM CDT PHOSPHORUS Routine 01/26/2025 3:10 AM CDT MAGNESIUM LEVEL Routine 01/26/2025 3:10 AM CDT POC GLUCOSE Routine 01/26/2025 2:36 AM CDT POC GLUCOSE Routine 01/26/2025 12:41 AM CDT EKG 12-LEAD Routine 01/25/2025 11:41 PM CDT HEMOGLOBIN A1C Routine 01/25/2025 11:16 PM CDT CBC WITH DIFFERENTIAL Stat 01/25/2025 11:16 PM CDT BASIC METABOLIC PANEL Routine 01/25/2025 11:16 PM CDT PHOSPHORUS Routine 01/25/2025 11:16 PM CDT MAGNESIUM LEVEL Routine 01/25/2025 11:16 PM CDT POC GLUCOSE Routine 01/25/2025 10:29 PM CDT from Last 3 Months Results * TELEMETRY REPORT (02/11/2025 4:09 PM CDT) Provider Scanning ECG ORDERABLES Final Result * (ABNORMAL) POC GLUCOSE (02/09/2025 12:39 PM CDT) Only the most recent of87 resultswithin the time period is included. GLUCOSE POC 264(H) 74 - 99 mg/dL 02/09/2025 12:[address] [facility] SPECIMEN SOURCE, GLUCOSE POC Whole Blood 02/09/2025 12:[address] [facility] COMMENT, GLU POC Notified RN/MD 02/09/2025 12:39 PM CDT [facility] Blood, whole 02/09/2025 12:3 9 PM CDT 02/09/2025 1:33 PM CDT Manpreet Alvarez MD POINT OF CARE TESTING Final Res ult [facility]# [id number] [address] [place] [address] * EKG 12-LEAD (02/06/2025 11:02 PM CDT) Only the most recent of5 resultswithin the time period is included. 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: [id number] : 1945 Requested By: DENIS Hartman Order Number: [id number] Reading TRISTAN Dsouza Measurements Intervals [place] Rate: 112 P: 76 MI: 139 QRS: 58 QRSD: 95 T: 16 QT: 367 QTc: 501 Interpretive Statements Sinus tachycardia Minimal ST depression, inferior leads Prolonged QT interval Electronically Signed On 02-07-2025 10:25:30 CDT by Gildardo Dsouza Procedure Note Gildardo Dsouza MD - 02/07/2025 [facility] [address] [place] [address] Test Date: 2025-02-06 Pat Name: MARVIN MILLBROOK Department: 60 Room: [facility] 1 Gender: Male 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: [id number] : 1945 Requested By: DENIS Hartman Order Number: [id number] Reading TRISTAN Dsouza Measurements Intervals [place] Rate: 112 P: 76 MI: 139 QRS: 58 QRSD: 95 T: 16 QT: 367 QTc: 501 Interpretive Statements Sinus tachycardia Minimal ST depression, inferior leads Prolonged QT interval Electronically Signed On 02-07-2025 10:25:30 CDT by Gildardo Dsouza us Nissa Merenda DO ECG ORDERABLES Final Resul t INTERFACE SYSTEM Refer to clinic/hospital department * (ABNORMAL) COMPREHENSIVE METABOLIC PANEL (02/06/2025 11:23 AM CDT) Only the most recent of4 resultswithin the time period is included. SODIUM 141 136 - 145 mmol/L 02/06/2025 12:21 PM [facility] POTASSIUM 3.9 3.5 - 5.0 mmol/L 02/06/2025 12:21 PM [facility] CHLORIDE 107 98 - 107 mmol/L 02/06/2025 12:21 PM [facility] CO2 21(L) 22 - 29 mmol/L 02/06/2025 12:21 PM [facility] CALCIUM 8.8 8.6 - 10.2 mg/dL 02/06/2025 12:21 PM [facility] BUN 13 8 - 23 mg/dL 02/06/2025 12:21 PM [facility] CREATININE 1.07 0.67 - 1.17 mg/dL 02/06/2025 12:21 PM [facility] Comment:The GFR result is no t clinically significant on patients <18 or >70 years of age. GLUCOSE 171(H) 74 - 99 mg/dL 02/06/2025 12:21 PM [facility] TOTAL PROTEIN 6.7 6.7 - 8.6 g/dL 02/06/2025 12:21 PM [facility] ALBUMIN 3.3(L) 3.5 - 5.2 g/dL 02/06/2025 12:21 PM [facility] BILIRUBIN TOTAL 1.0 0.2 - 1.1 mg/dL 02/06/2025 12:21 PM [facility] - . [facility] ALKALINE PHOSPHATASE 108 40 - 129 U/L 02/06/2025 12:21 PM [facility] AST 44(H) <41 U/L 02/06/2025 12:21 PM [facility] Comment:Hemolysis present. R esult may be falsely elevated. ALT 33 <42 U/L 02/06/2025 12:21 PM [facility] GFR >60 mL/min/1.7 3 sq meter 02/06/2025 12:21 PM [facility] Comment:eGFR calculated with 2020 CKD-EPI equation. Vegetarian diet, extremely high or low muscle mass, and may affect results. Cystatin C with Glomerular Filtration Rate is a suitable alternative for these patients. ANION GAP 13 8 - 16 mmol/L 02/06/2025 12:21 PM [facility] Blood Venipuncture / Unknown 02/06/2025 11:23 AM CDT 02/06/2025 11:38 AM CDT [facility] - 02/06/2025 12:21 PM CDT Samples containing indocyanine green cause interferences on Total and/or Direct Bilirubin and must not be measured. us Manpreet Alvarez MD CHEMISTRY ORDERABLES Final Resu lt [facility]# [id number] [address] [facility] [id number] * CBC WITH DIFFERENTIAL (02/06/2025 11:22 AM CDT) Only the most recent of9 resultswithin the time period is included. WBC 6.3 4.0 - 9.8 K/uL 02/06/2025 11:43 AM [facility] RBC 4.91 4.50 - 5.40 M/uL 02/06/2025 11:43 AM [facility] HEMOGLOBIN 14.5 13.6 - 16.5 g/dL 02/06/2025 11:43 AM [facility] HEMATOCRIT 43.0 40.0 - 48.0 % 02/06/2025 11:43 AM [facility] MCV 87.6 82.0 - 99.0 fL 02/06/2025 11:43 AM CDT [facility] MCH 29.5 27.2 - 32.6 pg 02/06/2025 11:43 AM CDT [facility] MCHC 33.7 31.5 - 35.5 g/dL 02/06/2025 11:43 AM CDT [facility] RDW 14.1 11.5 - 14.5 % 02/06/2025 11:43 AM CDT [facility] RDW-STDEV 44.0 37.1 - 48.7 fL 02/06/2025 11:43 AM CDT [facility] PLATELETS 347 140 - 350 K/uL 02/06/2025 11:43 AM CDT [facility] MPV 10.0 9.3 - 12.4 fL 02/06/2025 11:43 AM CDT [facility] NEUTROPHILS 64 % 02/06/2025 11:43 AM CDT [facility] - . [facility] LYMPHOCYTES 27 % 02/06/2025 11:43 AM CDT [facility] MONOCYTES 6 % 02/06/2025 11:43 AM CDT [facility] EOSINOPHILS 2 % 02/06/2025 11:43 AM CDT [facility] - . [facility] BASOPHILS 1 % 02/06/2025 11:43 AM CDT [facility] - . [facility] IMMATURE GRANULOCYTES 0 % 02/06/2025 11:43 AM CDT [facility] - . [facility] NEUTROPHIL ABSOLUTE 4.00 1.90 - 7.00 K/uL 02/06/2025 11:43 AM CDT [facility] - . [facility] LYMPHOCYTE ABSOLUTE 1.72 0.70 - 4.50 K/uL 02/06/2025 11:43 AM CDT [facility] MONOCYTE ABSOLUTE 0.39 0.10 - 1.30 K/uL 02/06/2025 11:43 AM CDT [facility] - . [facility] EOSINOPHIL ABSOLUTE 0.10 0.00 - 0.70 K/uL 02/06/2025 11:43 AM CDT [facility] - [facility] BASOPHILS ABSOLUTE 0.04 0.00 - 0.20 K/uL 02/06/2025 11:[address] [facility] - [facility] IMMATURE GRANULOCYTES ABSOLUTE 0.02 0.00 - 0.03 K/uL 02/06/2025 11:[address] [facility] - [facility] Blood Venipuncture / Unknown 02/06/2025 11:22 AM CDT 02/06/2025 11:38 AM CDT Manpreet Alvarez MD HEMATOLOGY ORDERABLES Final Res ult [facility] CLIA# [id number] [address] [place] [address] * TROPONIN 6 HR, 5TH GEN (02/05/2025 11:50 PM CDT) Only the most recent of2 resultswithin the time period is included. TROPONIN T, 6 HR 5TH GEN 15 <=15 ng/L 02/06/2025 1:[address] [facility] DELTA 6HR TROPONIN T -9 See Interp. 02/06/2025 1:[address] [facility] Blood Venipuncture / Unknown 02/05/2025 11:50 PM CDT 02/06/2025 12:[address] [facility] - 02/06/2025 1:44 AM CDT Troponin Detectable but normal range. Delta indeterminate. Delay in collection of timed specimen beyond recommended collection interval. Results must be interpreted in clinical context. us Manpreet Alvarez MD CHEMISTRY ORDERABLES Final Resu lt Performing Organization Address City/[facility]/ZIP Co de Phone Number [facility] CLIA# [id number] [address] [place] [address] * (ABNORMAL) TROPONIN 2 HR, 5TH GEN (02/05/2025 8:52 PM CDT) Only the most recent of2 resultswithin the time period is included. TROPONIN T, 2 HR 5TH GEN 16(H) <=15 ng/L 02/05/2025 9:59 PM CDT [facility] DELTA 2HR TROPONIN T -8 See Interp. 02/05/2025 9:[address] [facility] Blood Venipuncture / Unknown 02/05/2025 8:52 PM CDT 02/05/2025 9:[address] [facility] - 02/05/2025 9:59 PM CDT Troponin elevated. Delta indeterminate. Delay in collection of timed specimen beyond recommended collection interval. Results must be interpreted in clinical context. Manpreet Alvarez MD CHEMISTRY ORDERABLES Final Resu Performing Organization Address City/[facility]/ZIP Co de Phone Number [facility] CLNC# [id number] [address] [place] [address] * (ABNORMAL) TROPONIN BASELINE, 5TH GEN (02/05/2025 5:53 PM CDT) Only the most recent of2 resultswithin the time period is included. TROPONIN T, BASELINE 5TH GEN 24(H) <=15 ng/L 02/05/2025 6:58 PM CDT [facility] Blood Venipuncture / Unknown 02/05/2025 5:53 PM CDT 02/05/2025 6:[address] [facility] - 02/05/2025 6:58 PM CDT Troponin elevated. Manpreet Alvarez MD CHEMISTRY ORDERABLES Final Resu lt [facility] CLIA# [id number] [address] [place] [id number] * MAGNESIUM LEVEL (02/05/2025 5:53 PM CDT) Only the most recent of9 resultswithin the time period is included. MAGNESIUM 1.8 1.6 - 2.4 mg/dL 02/05/2025 7:[address] [facility] Blood Venipuncture / Unknown 02/05/2025 5:53 PM CDT 02/05/2025 6:29 PM CDT Manpreet Alvarez MD CHEMISTRY ORDERABLES Final Resu lt [facility]# [id number] [address] [facility] [id number] * (ABNORMAL) BASIC METABOLIC PANEL (02/05/2025 5:53 PM CDT) Only the most recent of12 resultswithin the time period is included. SODIUM 142 136 - 145 mmol/L 02/05/2025 7:[address] [facility] POTASSIUM 3.3(L) 3.5 - 5.0 mmol/L 02/05/2025 7:[address] [facility] CHLORIDE 109(H) 98 - 107 mmol/L 02/05/2025 7:[address] [facility] CO2 22 22 - 29 mmol/L 02/05/2025 7:[address] [facility] CALCIUM 8.7 8.6 - 10.2 mg/dL 02/05/2025 7:[address] [facility] BUN 12 8 - 23 mg/dL 02/05/2025 7:[address] [facility] CREATININE 1.02 0.67 - 1.17 mg/dL 02/05/2025 7:[address] [facility] Comment:The GFR result is no t clinically significant on patients <18 or >70 years of age. GLUCOSE 168(H) 74 - 99 mg/dL 02/05/2025 7:[address] [facility] GFR >60 mL/min/1.7 3 sq meter 02/05/2025 7:[address] [facility] Comment:eGFR calculated with 2020 CKD-EPI equation. Vegetarian diet, extremely high or low muscle mass, and may affect results. Cystatin C with Glomerular Filtration Rate is a suitable alternative for these patients. ANION GAP 11 8 - 16 mmol/L 02/05/2025 7:44 PM CDT [facility] Blood Venipuncture / Unknown 02/05/2025 5:53 PM CDT 02/05/2025 6:29 PM CDT us Manpreet Alvarez MD CHEMISTRY ORDERABLES Final Resu lt Performing Organization Address [facility] Co de Phone Number [facility] CLIA# [id number] [address] [place] [address] * PHOSPHORUS (02/02/2025 4:23 AM CDT) Only the most recent of8 resultswithin the time period is included. PHOSPHORUS 3.3 2.5 - 4.5 mg/dL 02/02/2025 5:57 AM CDT [facility] Blood Venipuncture / Unknown 02/02/2025 4:23 AM CDT 02/02/2025 5:06 AM CDT us Erma SHAFFER CHEMISTRY ORDERABLES Final Resu lt Performing Organization Address [facility] Co de Phone Number [facility] CLIA# [id number] [address] [place] [address] * MRI BRAIN W WO CONTRAST (02/02/2025 3:03 AM CDT) Anatomical Region Laterality Modality Head Magnetic Resonan ce 02/02/2025 3:05 AM CDT Impressions 02/02/2025 3:28 AM CDT IMPRESSION: No evidence of acute intracranial hemorrhage, acute infarction or intracranial mass. DICTATION LOCATION: Location Narrative 02/02/2025 3:28 AM CDT EXAM: MRI BRAIN W WO CONTRAST, 02/02/2025 3:03 AM HISTORY: 79 years Male Mental status change, unknown cause TECHNIQUE: Multiplanar, multisequence MRI of the brain was performed per routine protocol with IV contrast administration (GADOTERIDOL 279.3 MG/ML INTRAVENOUS SOLUTION Given:15 mL). COMPARISON: 01/28/2025 FINDINGS: Mild motion artifact. There is no restricted diffusion to indicate acute or subacute ischemia. There is no acute hemorrhage or mass. The signal characteristics of the brain are normal. The ventricles and sulci are normal for the patient's age. There is no evidence of abnormal enhancement. There is no midline shift. The pituitary gland is normal. There are no extra-axial fluid collections. The vascular flow voids are unremarkable. The unenhanced major intracranial venous structures are grossly normal. The orbits are unremarkable. The imaged paranasal sinuses are clear. The mastoid air cells are clear. The skull base and calvarium are normal. The craniocervical junction is normal. Procedure Note Roly Dumont MD - 02/02/2025 EXAM: MRI BRAIN W WO CONTRAST, 02/02/2025 3:03 AM HISTORY: 79 years Male Mental status change, unknown cause TECHNIQUE: Multiplanar, multisequence MRI of the brain was performed per routine protocol with IV contrast administration (GADOTERIDOL 279.3 MG/ML INTRAVENOUS SOLUTION Given:15 mL). COMPARISON: 01/28/2025 FINDINGS: Mild motion artifact. There is no restricted diffusion to indicate acute or subacute ischemia. There is no acute hemorrhage or mass. The signal characteristics of the brain are normal. The ventricles and sulci are normal for the patient's age. There is no evidence of abnormal enhancement. There is no midline shift. The pituitary gland is normal. There are no extra-axial fluid collections. The vascular flow voids are unremarkable. The unenhanced major intracranial venous structures are grossly normal. The orbits are unremarkable. The imaged paranasal sinuses are clear. The mastoid air cells are clear. The skull base and calvarium are normal. The craniocervical junction is normal. IMPRESSION: No evidence of acute intracranial hemorrhage, acute infarction or intracranial mass. DICTATION LOCATION: Location 4 Ly Walsh MD MR ORDERABLES Final R esult * XR ABDOMEN 1 VW (02/01/2025 8:31 AM CDT) Anatomical Region Laterality Modality Abdomen Computed Radiogr aphy 02/01/2025 8:31 AM CDT Impressions 02/01/2025 9:13 AM CDT IMPRESSION: 1. Nonobstructive bowel gas pattern. DICTATION LOCATION: Location 1 - [facility] Narrative 02/01/2025 9:13 AM CDT EXAMINATION: XR ABDOMEN 1 VW HISTORY: Diarrhea COMPARISON: Abdominal radiograph performed 01/28/2025 FINDINGS: The bowel gas pattern is nonobstructive. Contrast material related to recently performed modified barium swallow opacifies portions of the colon. Multiple colonic diverticula are noted. No abnormal abdominal calcifications are identified. Degenerative changes are noted in the spine and hips. The visible lung bases are clear. INCIDENTAL FINDINGS: None. Procedure Note Luca Dukes MD - 02/01/2025 EXAMINATION: XR ABDOMEN 1 VW HISTORY: Diarrhea COMPARISON: Abdominal radiograph performed 01/28/2025 FINDINGS: The bowel gas pattern is nonobstructive. Contrast material related to recently performed modified barium swallow opacifies portions of the colon. Multiple colonic diverticula are noted. No abnormal abdominal calcifications are identified. Degenerative changes are noted in the spine and hips. The visible lung bases are clear. INCIDENTAL FINDINGS: None. IMPRESSION: 1. Nonobstructive bowel gas pattern. DICTATION LOCATION: Location 1 - [facility] Ly Walsh MD DIAGNOSTIC IMAGING ORDE JAJA Final Result * POTASSIUM LEVEL (01/30/2025 6:48 PM CDT) POTASSIUM 3.9 3.5 - 5.0 mmol/L 01/30/2025 7:[address] [facility] Blood Venipuncture / Unknown 01/30/2025 6:48 PM CDT 01/30/2025 6:55 PM CDT Erma SHAFFER CHEMISTRY ORDERABLES Final Resu lt [facility]# [id number] [address] [place] [address] * XR VIDEO SWALLOW W SPEECH (01/30/2025 12:08 PM CDT) Anatomical Region Laterality Modality Chest Computed Radiogr aphy 01/30/2025 12:1 0 PM CDT Narrative 01/30/2025 12:35 PM CDT X-RAY VIDEO SWALLOW WITH SPEECH THERAPY SUPERVISION DATE: 01/30/2025 HISTORY: Difficulty swallowing. Fluoroscopy time: 2.2 minutes Reference air kerma dose: 7.22 mGy Fluoroscopy was provided for patient's speech therapist to evaluate swallowing function. Please see the provider's report. DICTATION LOCATION: Location - [facility] Procedure Note Kyrie Vu MD - 01/30/2025 X-RAY VIDEO SWALLOW WITH SPEECH THERAPY SUPERVISION DATE: 01/30/2025 HISTORY: Difficulty swallowing. Fluoroscopy time: 2.2 minutes Reference air kerma dose: 7.22 mGy Fluoroscopy was provided for patient's speech therapist to evaluate swallowing function. Please see the provider's report. DICTATION LOCATION: Location - [facility] Ly Walsh MD DIAGNOSTIC IMAGING ORDE JAJA Final Result * EEG (01/29/2025 5:14 PM CDT) Narrative Keyshawn Santo MD - 01/29/2025 5:14 PM CDT Keyshawn Santo MD 01/29/2025 5:15 PM Routine EEG Report Patient Name: Marvin Young [facility] Medical Record Number (MRN): [id number] Date of (): 1945 EEG Date: 01/29/2025 Introduction: Mr. Young is a 79 y.o. male who presented with altered mental status. EEG was performed to evaluate for seizures. This is a 20 channel EEG utilizing the international 10/20 system. The analog EEG was filtered from 1-70 Hz and digitally sampled at 200 Hz. The record was then reformatted for review in bipolar and referential montages. EEG Description: There was a well-developed 8 Hz posterior rhythm. The background also included bilateral, diffuse, asynchronous admixed theta and delta range activity. The record showed variability. Hyperventilation was not performed. Photic strobe stimulation elicited no abnormalities. There were no focal, lateralized or epileptiform abnormalities. Interpretation: The EEG was abnormal due to mild generalized slowing. Generalized slowing indicates diffuse cerebral dysfunction as seen in metabolic, toxic, or diffuse or multifocal structural abnormalities. Keyshawn Santo MD Neurology Ly Walsh MD NEUROLOGY ORDERABLES Fi nal Result * ELECTROLYTES, RANDOM URINE (01/29/2025 5:43 AM CDT) SODIUM, URINE 26 mmol/L 01/29/2025 7:[address] [facility] POTASSIUM, URINE 30.6 mmol/L 01/29/2025 7:[address] [facility] CHLORIDE, URINE <25 mmol/L 01/29/2025 7:[address] [facility] Urine (Urine, straight in/out catheter) Collection / Unknown 01/29/2025 5:43 AM CDT 01/29/2025 6:[address] [facility] - 01/29/2025 7:37 AM CDT Reference Range Not Established Erma SHAFFER URINE ORDERABLES Final Result [facility]# [id number] 5 [facility] [place] [address] [id number] * OSMOLALITY, URINE (01/29/2025 5:43 AM CDT) OSMOLALITY, URINE 539 50 - 1,200 mOsm/kg 01/29/2025 7:32 AM [facility]ATORY [facility] Urine (Urine, straight in/out catheter) Collection / Unknown 01/29/2025 5:43 AM CDT 01/29/2025 6:01 AM CDT Replaced by [facility]ATORY SERVICES - [facility] - 01/29/2025 7:32 AM CDT Reference range: 50-1200 mOsm/kg H2O, depending on fluid intake. Erma SHAFFER URINE ORDERABLES Final Result [facility] [id number] [address] [facility] [address] * (ABNORMAL) URINALYSIS WITH REFLEX MICROSCOPIC (01/29/2025 5:43 AM CDT) Only the most recent of2 resultswithin the time period is included. COLOR UA Yellow Pale to Dark Yellow 01/29/2025 6:16 AM [facility] [employer] [facility]ATORY SERVICES [facility] CLARITY UA Slightly Cloudy(A) Clear 01/29/2025 6:16 AM [facility] SPECIFIC GRAVITY UA 1.030 1.003 - 1.035 01/29/2025 6:16 AM [facility] PH UA 5.0 5.0 - 8.0 01/29/2025 6:16 AM [facility] [employer] LABORATORY [facility]. [facility] LEUKOCYTE ESTERASE UA Negative Negative 01/29/2025 6:16 AM [facility]. [facility] NITRITE UA Negative Negative 01/29/2025 6:16 AM [facility] [employer] [facility]. [facility] PROTEIN UA 2+(A) Negative 01/29/2025 6:16 AM [facility] [employer] [facility] GLUCOSE UA Negative Negative 01/29/2025 6:16 AM [facility] [employer] [facility] KETONES UA Negative Negative 01/29/2025 6:16 AM [facility] [employer] LABORAT[facility]. [facility] UROBILINOGEN UA Normal <2.0 mg/dL 6:[address] [facility] - . [facility] BILIRUBIN UA Negative Negative 01/29/2025 6:[address] [facility] - . [facility] BLOOD UA 2+(A) Negative 01/29/2025 6:[address] [facility] - . [facility] WBC UA 3-5(A) 0 - 2 /hpf 01/29/2025 6:[address] [facility] - . [facility] RBC UA 11-25(A) 0 - 2 /hpf 01/29/2025 6:[address] [facility] - . [facility] BACTERIA UA Negative Negative /hpf 01/29/2025 6:[address] [facility] - . [facility] EPITHELIAL CELLS, URINE 0-5 0 - 5 /hpf 01/29/2025 6:[address] [facility] - . [facility] GRANULAR CAST 11-25(A) None Seen /lpf 01/29/2025 6:[address] [facility] - . [facility] Urine (Urine, straight in/out catheter) Collection / Unknown 01/29/2025 5:43 AM CDT 01/29/2025 6:01 AM CDT Ly Walsh MD URINE ORDERABLES Final Result [facility]# [id number] 5 [facility] [place] [address] * US RENAL AND BLADDER (01/28/2025 8:17 PM CDT) Anatomical Region Laterality Modality Abdomen Ultrasound 01/28/2025 8:32 PM CDT Impressions 01/28/2025 8:37 PM CDT IMPRESSION: Unremarkable renal ultrasound. DICTATION LOCATION: Location 1 - [facility] Narrative 01/28/2025 8:37 PM CDT RENAL ULTRASOUND DATE: 01/28/2025 8:17 PM HISTORY: 79-year-old male with acute renal failure COMPARISON: None FINDINGS: Technologist reports examination limited due to patient altered mental status, unable to hold still or suspend respiration. The right kidney measures approximately 10.4 cm long. The left kidney measures 11.0 cm long. Renal echogenicity is normal. No definite evidence of focal mass mass or calculi. No hydronephrosis noted. The mildly distended bladder is unremarkable. Procedure Note Mikayla Jay MD - 01/28/2025 RENAL ULTRASOUND DATE: 01/28/2025 8:17 PM HISTORY: 79-year-old male with acute renal failure COMPARISON: None FINDINGS: Technologist reports examination limited due to patient altered mental status, unable to hold still or suspend respiration. The right kidney measures approximately 10.4 cm long. The left kidney measures 11.0 cm long. Renal echogenicity is normal. No definite evidence of focal mass mass or calculi. No hydronephrosis noted. The mildly distended bladder is unremarkable. IMPRESSION: Unremarkable renal ultrasound. DICTATION LOCATION: Location 1 [facility] us Erma SHAFFER US ORDERABLES Final Result * XR ABDOMEN FOR FEEDING TUBE 1 VW (01/28/2025 6:24 PM CDT) Only the most recent of2 resultswithin the time period is included. Anatomical Region Laterality Modality Abdomen Computed Radiogr aphy 01/28/2025 6:25 PM CDT Impressions 01/28/2025 6:40 PM CDT IMPRESSION: 1. Feeding tube tip in the airways, terminating in the right lower lobe. Findings regarding the position of the tube were reported to EDMUND Grullon and Emily Frazier RN via [employer] secure chat. They reported the tube has been removed. DICTATION LOCATION: Location 4 Narrative 01/28/2025 6:40 PM CDT EXAMINATION: XR ABDOMEN FOR FEEDING TUBE 1 VW DATE: 01/28/2025 6:24 PM. HISTORY: Feeding tube placement. COMPARISON: 02/15/2025 at 12:47 PM. FINDINGS: The tip of the feeding tube is seen in the right lower hemithorax. The tube is in the airways, terminating in the right lower lobe. Bowel gas pattern in the abdomen is unremarkable. Procedure Note Manohar Blackwell MD - 01/28/2025 EXAMINATION: XR ABDOMEN FOR FEEDING TUBE 1 VW DATE: 01/28/2025 6:24 PM. HISTORY: Feeding tube placement. COMPARISON: 02/15/2025 at 12:47 PM. FINDINGS: The tip of the feeding tube is seen in the right lower hemithorax. The tube is in the airways, terminating in the right lower lobe. Bowel gas pattern in the abdomen is unremarkable. IMPRESSION: 1. Feeding tube tip in the airways, terminating in the right lower lobe. Findings regarding the position of the tube were reported to EDMUND Grullon and Emily Frazier RN via [employer] secure chat. They reported the tube has been removed. DICTATION LOCATION: Location 4 us Erma SHAFFER DIAGNOSTIC IMAGING ORDERABLES F inal Result * ANGIOTENSIN CONVERTING ENZYME (01/28/2025 4:34 PM CDT) ANGIOTENSIN CONVERTING ENZYME 36 9 - 67 U/L 01/30/2025 2:03 PM CDT [email or web address] [facility] Blood Venipuncture / Unknown 01/28/2025 4:34 PM CDT 01/28/2025 4:54 PM CDT Narrative [facility] - 01/30/2025 2:03 PM CDT Performing Organization Information: Site ID: [id number] Name: [employer] Address: [address] [place], [place] [address] [address] Director: Lamine Daily MD us Ly Walsh MD CHEMISTRY ORDERABLES Fi nal Result [facility] [phone] * AMMONIA LEVEL (01/28/2025 4:34 PM CDT) AMMONIA 22.5 16.0 - 60.0 umol/L 01/28/2025 5:16 PM CDT [facility] Blood, venous Venipuncture / Unknown 01/28/2025 4:34 PM CDT 01/28/2025 4:50 PM CDT us Ly Walsh MD CHEMISTRY ORDERABLES Fi nal Result [facility] SERVICES [facility]# [id number] 5 [facility] [place] [id number] * US VENOUS DOPPLER LEG BILATERAL (01/28/2025 3:22 PM CDT) Anatomical Region Laterality Modality Lower Extremity Ultrasound 01/28/2025 1:35 PM CDT Narrative 01/28/2025 5:20 PM CDT [facility] [address] [place] [address] [email or web address] Venous Exam Complete Lower Extremity Duplex Patient: Marvin Young Study ID: [id number] Gender: M : 1945 Age: 79 Race: CAU Height Study Date: 01/28/2025 Weight: Access. #: [id number] *Referring Physician:Erma Mancilla Nicole *Ordering Physician:Erma Mancilla *Pilling Machine Operator:Katarzyna Redding Indications: DVT per ordering by provider. History: PMH: No prior study is available for comparison. Study data: New node Study status: Routine. Procedure: A vascular evaluation was performed. Image quality was fair. The study was technically limited due to movement. Complete lower extremity venous duplex evaluation. Doppler flow study including spectral analysis, color and keita scale imaging. Birthdate: Patient birthdate: 1945. Age: Patient is 79year(s) old. Sex: gender: male. Study date: Study date: 01/28/2025. Study time: 01:35 PM. Location: Vascular laboratory. Patient status: Inpatient. Impressions Study data: No prior study is available for comparison. No evidence of deep vein thrombosis involving the bilateral lower extremities. Tables: Venous flow: + +-------+ + !Location !Overall!Flow properties ! + +-------+ + !Right common femoral - !Patent !Phasic; spontaneous; normal augmentation; ! ! ! !compressible; no reflux ! + +-------+ + !Right femoral - !Patent !Compressible ! + +-------+ + !Right profunda femoral -!Patent !Compressible ! + +-------+ + !Right popliteal - !Patent !Phasic; spontaneous; normal augmentation; ! ! ! !compressible; no reflux ! + +-------+ + !Right posterior tibial -!Patent !Compressible ! + +-------+ + !Right peroneal - !Patent !Compressible ! + +-------+ + !Left common femoral - !Patent !Phasic; spontaneous; normal augmentation; ! ! ! !compressible; no reflux ! + +-------+ + !Left femoral - !Patent !Compressible ! + +-------+ + !Left profunda femoral - !Patent !Compressible ! + +-------+ + !Left popliteal - !Patent !Phasic; spontaneous; normal augmentation; ! ! ! !compressible; no reflux ! + +-------+ + !Left posterior tibial - !Patent !Compressible ! + +-------+ + !Left peroneal - !Patent !Compressible ! + +-------+ + *Velocities are expressed in cm/s, Diameters are expressed in mm Prepared and Electronically Authenticated Remington Weller M.D. [id number] Procedure Note Remington Weller MD - 01/28/[address] [address] [email or web address] Venous Exam Complete Lower Extremity Duplex Patient: Marvin Young Study ID:[id number] Gender: M :1945 Age: 79 Race: CAU Height Study Date:01/28/2025 Weight: Access. #:[id number] *Referring Physician:Erma Mancilla Nicole *Ordering Physician:Erma Mancilla *Pilling Machine Operator:Ade LunaHaqKatarzyna Indications: DVT per ordering by provider. History: PMH: No prior study is available for comparison. Study data: New node Study status: Routine. Procedure: A vascular evaluation was performed. Image quality was fair. The study wastechnically limited due to movement. Complete lower extremity venous duplexevaluation. Doppler flow study including spectral analysis, color and keita scale imaging. Birthdate: Patient birthdate: 1945. Age: Patient is 79year(s) old. Sex: gender: male. Study date: Study date: 01/28/2025. Study time: 01:35 PM. Location: Vascular laboratory.Patient status: Inpatient. Impressions Study data: No prior study is available for comparison. No evidence ofdeep vein thrombosis involving the bilateral lower extremities. Tables: Venous flow: + +-------+ + !Location !Overall!Flow properties! + +-------+ + !Right common femoral - !Patent !Phasic; spontaneous; normalaugmentation; ! ! ! !compressible; no reflux! + +-------+ + !Right femoral - !Patent !Compressible! + +-------+ + !Right profunda femoral -!Patent !Compressible! + +-------+ + !Right popliteal - !Patent !Phasic; spontaneous; normalaugmentation; ! ! ! !compressible; no reflux! + +-------+ + !Right posterior tibial -!Patent !Compressible! + +-------+ + !Right peroneal - !Patent !Compressible! + +-------+ + !Left common femoral - !Patent !Phasic; spontaneous; normalaugmentation; ! ! ! !compressible; no reflux! + +-------+ + !Left femoral - !Patent !Compressible! + +-------+ + !Left profunda femoral - !Patent !Compressible! + +-------+ + !Left popliteal - !Patent !Phasic; spontaneous; normalaugmentation; ! ! ! !compressible; no reflux! + +-------+ + !Left posterior tibial - !Patent !Compressible! + +-------+ + !Left peroneal - !Patent !Compressible! + +-------+ + *Velocities are expressed in cm/s, Diameters are expressed in mm Prepared and Electronically Authenticated Remington Weller M.D. [id number] Erma SHAFFER ORDERABLES Final Result * (ABNORMAL) PROCALCITONIN (01/28/2025 11:24 AM CDT) PROCALCITONIN 0.31(H) <=0.25 ng/mL 01/28/2025 12:28 PM CDT [facility] Blood Venipuncture / Unknown 01/28/2025 11:24 AM CDT 01/28/2025 11:43 AM CDT Narrative [facility] - 01/28/2025 12:28 PM CDT The utility of procalcitonin is limited/NOT recommended in certain populations (e.g. newborns, dialysis/ESRD, patients with recent major surgery/trauma/jones, liver cirrhosis, viral hepatitis, certain cancers, etc.). Procalcitonin levels MUST be interpreted in the context of the patient's clinical condition and CANNOT be solely relied upon for diagnosis of infection. <0.25 ng/mL: Bacterial infection unlikely, particularly lower respiratory tract infections. <0.5 ng/mL: Low risk for progression to severe sepsis/septic shock. Localized infection possible. Measurements done early (<6 hours) after systemic process starts may still be low. 0.5-2 ng/mL: Moderate risk for progression to severe sepsis/septic shock. >2 ng/mL: High risk for progression to severe sepsis/septic shock. If antibiotics ARE administered, repeat testing is recommended every 2-3 days to help guide antibiotic cessation. Once a decrease of 80% or more has occurred from baseline, discontinuation of antibiotics should strongly be considered in clinically stable patients. Procalcitonin is produced in the setting of systemic inflammation, particularly bacterial infections. It is detectable within 2-4 hours and peaks within 6-24 hours. Erma SHAFFER CHEMISTRY ORDERABLES Final Resu lt [facility]# [id number] [address] [facility] [place] [address] * MRI BRAIN WO CONTRAST (01/28/2025 10:31 AM CDT) Anatomical Region Laterality Modality Head Magnetic Resonan ce 01/28/2025 10:3 1 AM CDT Impressions 01/28/2025 10:40 AM CDT IMPRESSION: 1. Significantly limited exam due to extensive motion. No definite acute intracranial findings; consider repeat MRI when patient is better able to tolerate the exam if there is continued clinical concern. DICTATION LOCATION: Location [address] [place] [address] Narrative 01/28/2025 10:40 AM CDT EXAMINATION: MRI BRAIN WO CONTRAST HISTORY: Mental status change, unknown cause. See Reason for Exam TECHNIQUE: MRI of the brain was performed without contrast according to standard protocol. FINDINGS: No prior study is available for comparison at the time of this dictation. Markedly limited examination due to extensive motion. No evidence of acute or chronic hemorrhage is identified. No evidence of acute cerebral infarction is seen. There is mild cerebral volume loss with associated ex vacuo ventricular dilatation. No mass effect or midline shift is seen. Parenchymal signal is poorly assessed due to motion. The corpus callosum and sella appear normal. The posterior fossa, brainstem, and craniocervical junction appear normal. Visible portions of the orbits, paranasal sinuses, and mastoids appear normal. Normal flow voids are demonstrated in the carotid arteries and basilar artery. The calvarium and visualized cervical spine appear normal. Procedure Note Fab Kamara MD - 01/28/2025 EXAMINATION: MRI BRAIN WO CONTRAST HISTORY: Mental status change, unknown cause. See Reason for Exam TECHNIQUE: MRI of the brain was performed without contrast according to standard protocol. FINDINGS: No prior study is available for comparison at the time of this dictation. Markedly limited examination due to extensive motion. No evidence of acute or chronic hemorrhage is identified. No evidence of acute cerebral infarction is seen. There is mild cerebral volume loss with associated ex vacuo ventricular dilatation. No mass effect or midline shift is seen. Parenchymal signal is poorly assessed due to motion. The corpus callosum and sella appear normal. The posterior fossa, brainstem, and craniocervical junction appear normal. Visible portions of the orbits, paranasal sinuses, and mastoids appear normal. Normal flow voids are demonstrated in the carotid arteries and basilar artery. The calvarium and visualized cervical spine appear normal. IMPRESSION: 1. Significantly limited exam due to extensive motion. No definite acute intracranial findings; consider repeat MRI when patient is better able to tolerate the exam if there is continued clinical concern. DICTATION LOCATION: Location [address] [place] [address] Kraig Bowers MD MR ORDERABLES Final Result * CTA CHEST W AND/OR WO CONTRAST (01/28/2025 10:14 AM CDT) Anatomical Region Laterality Modality Chest Computed Tomogra phy 01/28/2025 9:21 AM CDT Impressions 01/28/2025 10:42 AM CDT IMPRESSION: 1. No central filling defects are identified to suggest acute pulmonary embolus. 2. Prominent bilateral hilar lymph nodes with enlarged right hilar lymph nodes. These are indeterminate. Correlation with patient's history recommended. Short-term follow-up CT could be considered in 3 months. Alternatively, PET CT follow-up could be considered for further characterization. 3. Suspect early enhancement in bilateral hilar lymph nodes. Question associated enhancing vessel versus calcification in a right hilar lymph node. 4. Basilar predominant groundglass opacities significantly worse on the right. Appearance suspicious for underlying infectious/inflammatory process. The examination was performed with the adjustment of mA according to the patient size and/or the use of Iterative Reconstruction Technique. DICTATION LOCATION: [address] 01/28/2025 10:42 AM CDT EXAM: CTA CHEST W AND/OR WO CONTRAST DATE: 01/28/2025 10:14 AM CLINICAL INDICATION: Pulmonary embolism (PE) suspected, high prob TECHNIQUE: Multiple contiguous axial CT images were obtained through the chest before and after the administration of IV contrast. Images were obtained to optimize evaluation of the pulmonary arteries. Post processing coronal and sagittal reconstruction images were made from the axial images. MIP reconstructions were created of the pulmonary arteries for the purposes of CT angiography. IV CONTRAST: 100 mL Isovue 300 COMPARISON: Chest radiograph January 27, 2025. FINDINGS: Heart and great vessels: Heart size normal without pericardial effusion. Coronary artery calcifications are noted. Mild calcified plaque in the thoracic aorta. No central filling defects are identified to suggest acute pulmonary embolus. Mediastinum and pulmonary jackelin: Scattered prominent mediastinal lymph nodes. Prominent bilateral hilar lymph nodes. Enlarged right hilar lymph nodes. Posterior right hilar lymph node measuring 1.3 x 1.9 cm. Suspect early enhancement in an anterior prominent left hilar lymph node and an enlarged right hilar lymph node. Question associated vascular enhancement on the right versus calcification. Lungs and pleura: Bibasilar groundglass opacities in both lungs, right significantly worse than the left. Appearance suspicious for infectious/inflammatory process. No pneumothorax. Calcified and noncalcified pulmonary nodules. Intrafissural lymph node noted on the right. Chest wall and osseous structures: No axillary lymphadenopathy. Moderate degenerative disease in the thoracic spine. INCIDENTAL FINDINGS: Degenerative disease in the thoracic spine. Scattered calcified granulomas in both lungs.. Procedure Note Oscar Dacosta MD - 01/28/2025 EXAM: CTA CHEST W AND/OR WO CONTRAST DATE: 01/28/2025 10:14 AM CLINICAL INDICATION: Pulmonary embolism (PE) suspected, high prob TECHNIQUE: Multiple contiguous axial CT images were obtained through the chest before and after the administration of IV contrast. Images were obtained to optimize evaluation of the pulmonary arteries. Post processing coronal and sagittal reconstruction images were made from the axial images. MIP reconstructions were created of the pulmonary arteries for the purposes of CT angiography. IV CONTRAST: 100 mL Isovue 300 COMPARISON: Chest radiograph January 27, 2025. FINDINGS: Heart and great vessels: Heart size normal without pericardial effusion. Coronary artery calcifications are noted. Mild calcified plaque in the thoracic aorta. No central filling defects are identified to suggest acute pulmonary embolus. Mediastinum and pulmonary jackelin: Scattered prominent mediastinal lymph nodes. Prominent bilateral hilar lymph nodes. Enlarged right hilar lymph nodes. Posterior right hilar lymph node measuring 1.3 x 1.9 cm. Suspect early enhancement in an anterior prominent left hilar lymph node and an enlarged right hilar lymph node. Question associated vascular enhancement on the right versus calcification. Lungs and pleura: Bibasilar groundglass opacities in both lungs, right significantly worse than the left. Appearance suspicious for infectious/inflammatory process. No pneumothorax. Calcified and noncalcified pulmonary nodules. Intrafissural lymph node noted on the right. Chest wall and osseous structures: No axillary lymphadenopathy. Moderate degenerative disease in the thoracic spine. INCIDENTAL FINDINGS: Degenerative disease in the thoracic spine. Scattered calcified granulomas in both lungs.. IMPRESSION: 1. No central filling defects are identified to suggest acute pulmonary embolus. 2. Prominent bilateral hilar lymph nodes with enlarged right hilar lymph nodes. These are indeterminate. Correlation with patient's history recommended. Short-term follow-up CT could be considered in 3 months. Alternatively, PET CT follow-up could be considered for further characterization. 3. Suspect early enhancement in bilateral hilar lymph nodes. Question associated enhancing vessel versus calcification in a right hilar lymph node. 4. Basilar predominant groundglass opacities significantly worse on the right. Appearance suspicious for underlying infectious/inflammatory process. The examination was performed with the adjustment of mA according to the patient size and/or the use of Iterative Reconstruction Technique. DICTATION LOCATION: Location [address] [place] [address] ORDERABLES Final Result * C. DIFFICILE DETECTION (01/28/2025 9:15 AM CDT) Pathologist [facility] TOXIGENIC C DIFFICILE NOT DETECTED Not Detected 01/28/2025 10:49 AM CDT [facility] Stool STOOL SPECIMEN / Unknown Collection / Unknown 01/28/2025 9:15 AM CDT 01/28/2025 9:[address] [facility] - 01/28/2025 10:49 AM CDT This assay is used to detect Toxigenic C. difficile target(B gene) DNA sequences in unformed stool specimens. If toxigenic C. difficile is not detected, but clinical suspicion is high please consult ID for consultation and potential repeat testing. This test should not be used as a test of cure. us Erma SHAFFER MICROBIOLOGY - GENERAL ORDERABL ES Final Result Performing Organization Address [facility] Co de Phone Number [facility] CLIA# [id number] 5 [facility] [place] [address] * (ABNORMAL) TSH REFLEXIVE (01/28/2025 3:33 AM CDT) [facility] TSH 0.10(L) 0.27 - 4.20 uIU/mL 01/28/2025 10:35 AM CDT [facility] Blood Venipuncture / Unknown 01/28/2025 3:33 AM CDT 01/28/2025 3:40 AM CDT us Erma SHAFFER CHEMISTRY ORDERABLES Final Resu lt Performing Organization Address City/[facility]/ZIP Co de Phone Number [facility]# [id number] [address] [place] [address] * (ABNORMAL) T3 FREE (01/28/2025 3:33 AM CDT) [facility] T3 FREE 1.4(L) 2.0 - 4.4 pg/mL 01/28/2025 11:58 AM CDT [facility] Blood Venipuncture / Unknown 01/28/2025 3:33 AM CDT 01/28/2025 3:40 AM CDT Erma SHAFFER CHEMISTRY ORDERABLES Final Resu lt [facility]# [id number] [address] [place] [address] * T4 FREE (01/28/2025 3:33 AM CDT) [facility] T4 FREE 1.52 0.90 - 1.70 ng/dL 01/28/2025 10:59 AM CDT [facility] Blood Venipuncture / Unknown 01/28/2025 3:33 AM CDT 01/28/2025 3:40 AM CDT Erma SHAFFER CHEMISTRY ORDERABLES Final Resu lt [facility]# [id number] [address] [place] [address] * MRSA PCR RAPID SCREEN (01/27/2025 4:28 PM CDT) [facility] MRSA PCR RESULT MRSA not detected MRSA not detected 01/27/2025 6:17 PM CDT [facility] Surveillance ANTERIOR NARES SWAB / Unknown Collection / Unknown 01/27/2025 4:28 PM CDT 01/27/2025 4:41 PM CDT [facility] - 01/27/2025 6:17 PM CDT This assay is used to detect Methicillin-Resistant S. aureus (MRSA) colonization of the nares. PLEASE NOTE: This test has not been approved to monitor effectiveness of MRSA decolonization. Residual DNA may temporarily be present after successful decolonization. This test was performed using an FDA approved screening methodology. Ly Walsh MD MICROBIOLOGY - GENERAL ORDERABLES Final Result [facility]# [id number] [address] [place] [address] * (ABNORMAL) RESPIRATORY PATHOGEN PCR PANEL (01/27/2025 4:28 PM CDT) COVID-19 PCR DETECTED( A) Not Detected 01/27/2025 6:18 PM CDT [facility] Upper Respiratory ENTIRE NASOPHARYNX / Unknown Collection / Unknown 01/27/2025 4:28 PM CDT 01/27/2025 4:41 PM CDT [facility] - 01/27/2025 6:18 PM CDT Results called to Sirisha Cornejo LPN(ST MED SURG STEP DOWN) on 01/27/2025 at 6:18 PM and read back verified. The Film Array Respiratory Panel (RP2.1) is a multiplex nucleic acid detection test for 22 targets. Viruses: Adenovirus Coronavirus HKU1, NL63, 229E, and OC43 COVID-19/Severe Acute Respiratory Syndrome Coronavirus 2 Influenza A with the following subtypes: H1, H1-2009, and H3 Influenza B Human Metapneumovirus Parainfluenza virus 1, 2, 3, and 4 Respiratory Syncytial virus (RSV) Rhinovirus/Enterovirus (cannot differentiate due to genetic similarities) Bacteria: Bordetella pertussis Bordetella parapertussis Chlamydophila pneumoniae Mycoplasma pneumoniae Ly Walsh MD MICROBIOLOGY - GENERAL ORDERABLES Final Result Performing Organization Address [facility] Co de Phone Number [facility]# [id number] [address] [place] [address] * ENCEPHALOPATHY, AUTOIMMUNE EVALUATION, CSF (01/27/2025 4:20 PM CDT) TISSUE IFA OBSERVATION, CSF SEE NOTE 02/05/2025 3:32 AM CDT [facility] Comment: No fluorescence pattern suggestive of the presence of autoantibodies to neuronal antigens. AGNA (SOX1) AB, IFA, CSF NEGATIVE NEGATIVE 02/05/2025 3:32 AM CDT [facility] AMPHIPHYSIN AB, IFA, CSF NEGATIVE NEGATIVE 02/05/2025 3:32 AM CDT [facility] ANNA1 (HU) AB, IFA, CSF NEGATIVE NEGATIVE 02/05/2025 3:32 AM CDT [facility] ANNA2 (RI) AB, IFA, CSF NEGATIVE NEGATIVE 02/05/2025 3:32 AM CDT [facility] ANNA3 AB, IFA, CSF NEGATIVE NEGATIVE 2024 3:32 AM CDT [facility] AQUAPORIN 4 AB, IFA, CSF NEGATIVE NEGATIVE 02/05/2025 3:32 AM CDT [facility] CRMP5/CV2 AB, IFA, CSF NEGATIVE NEGATIVE 02/05/2025 3:32 AM CDT [facility] GAD65 AB, IFA, CSF NEGATIVE NEGATIVE 2024 3:32 AM CDT [facility] MA2/TA AB, IFA, CSF NEGATIVE NEGATIVE 02/05/2025 3:32 AM CDT [facility] MYELIN AB, IFA, CSF NEGATIVE NEGATIVE 02/05/2025 3:32 AM CDT [facility] PCA1 (YO) AB, IFA, CSF NEGATIVE NEGATIVE 02/05/2025 3:32 AM CDT [facility] PCA2 AB, IFA, CSF NEGATIVE NEGATIVE 025 3:32 AM CDT [facility] GRADUATE FELLOW TR (DNER) AB, IFA,CSF NEGATIVE NEGATIVE 02/05/2025 3:32 AM CDT [facility] Comment: The absence of detectable anti-neuronal autoantibodies in this test does not exclude an idiopathic or paraneoplastic autoimmune neurological disorder. Additional testing may be indicated. Testing using both CSF and serum increases sensitivity for detection. For additional information, please refer to [email or web address] (This link is being provided for informational/educational purposes only.) This test was developed and its analytical performance characteristics have been determined by [facility]. It has not been cleared or approved by the FDA. This assay has been validated pursuant to the CLIA regulations and is used for clinical purposes. AQP4 AB (IGG), SCREEN, CSF NEGATIVE NEGATIVE 02/05/2025 3:32 AM CDT [facility] Comment: This test was developed and its analytical performance characteristics have been determined by [facility]. It has not been cleared or approved by the FDA. This assay has been validated pursuant to the CLIA regulations and is used for clinical purposes. AMPAR1 AB, CBA, CSF NEGATIVE NEGATIVE 02/05/2025 3:32 AM CDT [facility] AMPAR2 AB, CBA, CSF NEGATIVE NEGATIVE 02/05/2025 3:32 AM CDT [facility] CASPR2 AB, CBA, CSF NEGATIVE NEGATIVE 02/05/2025 3:32 AM CDT [facility] GABABR AB, CBA, CSF NEGATIVE NEGATIVE 02/05/2025 3:32 AM CDT [facility] LGI1 AB, CBA, CSF NEGATIVE NEGATIVE 025 3:32 AM CDT [facility] NMDAR1 AB, CBA, CSF NEGATIVE NEGATIVE 02/05/2025 3:32 AM CDT [facility] Comment: This test was developed and its analytical performance characteristics have been determined by [facility]. It has not been cleared or approved by the FDA. This assay has been validated pursuant to the CLIA regulations and is used for clinical purposes. DPPX AB CBA, CSF NEGATIVE NEGATIVE 02/06/20 25 3:32 AM CDT [facility] Comment: This test was developed and its analytical performance characteristics have been determined by [facility]. It has not been cleared or approved by the FDA. This assay has been validated pursuant to the CLIA regulations and is used for clinical purposes. VOLTAGE GATED POTASSIUM CHANNEL (VGKC) AB, CSF <20 <20 pmol/L 02/05/2025 3:32 AM CDT [facility] Comment: This test was developed and its analytical performance characteristics have been determined by [employer]. It has not been cleared or approved by the FDA. This assay has been validated pursuant to the CLIA regulations and is used for clinical purposes. ENCEPHALOPATHY RESULT SUMMARY, CSF SEE NOTE 02/05/2025 3:32 AM CDT [facility] Comment: All anti-neuronal antibodies tested and reported were NEGATIVE in the Encephalitis Antibody Evaluation with Reflex to Titer and Line Blot, CSF. Cerebrospinal fluid CEREBROSPINAL FLUID / Unknown Collection / Unknown 01/27/2025 4:20 PM CDT 01/28/2025 10:00 AM CDT Narrative [facility] RE[facility]ENCE [facility] - 02/05/2025 3:32 AM CDT Performing Organization Information: Site ID: [id number] Name: [employer] [facility], Address: [address] [place] [address] Director: Isidra Henderson MD,PhD,ELIZABETH Performing Organization Information: Site ID: [id number] Name: [employer], Address: [address] [place] [address] Director: Isidra Henderson MD,PhD,ELIZABETH Performing Organization Information: Site ID: [id number] Name: [employer], Address: [address] [place] [address] Director: Isidra Henderson MD,PhD,ELIZABETH Erma SHAFFER BODY FLUIDS AND STOOLS Final Re sult [facility] REFERENCE LAB [facility] [phone] * SPINAL FLUID CULTURE WITH GRAM STAIN (01/27/2025 4:20 PM CDT) CULTURE No growth 01/31/2025 7:[address] [facility] GRAM STAIN No organisms observed 01/31/2025 7:12 AM CDT [facility] GRAM STAIN 1+ (Rare or Occasional) Mononuclear WBC 01/31/2025 7:[address] [facility] - [facility] Cerebrospinal fluid CEREBROSPINAL FLUID / Unknown Collection / Unknown 01/27/2025 4:20 PM CDT 01/27/2025 4:41 PM CDT Erma SHAFFER MICROBIOLOGY - GENERAL ORDERABL ES Final Result Performing Organization Address [facility]/ZIP Co de Phone Number [facility] CLIA# [id number] [address] [place] [address] * SPINAL FLUID CELL COUNT W/REFLEX DIFFERENTIAL (01/27/2025 4:20 PM CDT) TUBE #, CSF 3 01/27/2025 5:[address] [facility] APPEARANCE, CSF Clear 01/27/2025 5:[address] [facility] COLOR, CSF Colorless 01/27/2025 5:[address] [facility] WBC, CSF 0 0 - 5 /uL 01/27/2025 5:[address] [facility] RBC, CSF 1 0 - 5 /uL 01/27/2025 5:[address] [facility] Cerebrospinal fluid CEREBROSPINAL FLUID / Unknown Collection / Unknown 01/27/2025 4:20 PM CDT 01/27/2025 4:41 PM CDT Erma SHAFFER BODY FLUIDS AND STOOLS Final Re sult [facility] CLIA# [id number] [address] [place] [address] * XR CHEST PA OR AP 1 VW (01/27/2025 1:19 PM CDT) Only the most recent of2 resultswithin the time period is included. Anatomical Region Laterality Modality Chest Computed Radiogr aphy 01/27/2025 1:19 PM CDT Narrative 01/27/2025 4:57 PM CDT EXAM: PORTABLE AP CHEST DATE: 01/27/2025 1:19 PM HISTORY: Shortness of Breath SOB. See Reason for Exam FINDINGS: Heart size and mediastinal width are normal. There is focal stellate density projecting adjacent to the inferior right hilum. Is not clear if this represents part of the hilum or focal mass versus infiltrate. Consider follow-up standing PA and lateral chest or CT of the chest. There is no pleural effusion or pneumothorax DICTATION LOCATION: Location - [facility] Procedure Note Jono Carey MD - 01/27/2025 EXAM: PORTABLE AP CHEST DATE: 01/27/2025 1:19 PM HISTORY: Shortness of Breath SOB. See Reason for Exam FINDINGS: Heart size and mediastinal width are normal. There is focal stellate density projecting adjacent to the inferior right hilum. Is not clear if this represents part of the hilum or focal mass versus infiltrate. Consider follow-up standing PA and lateral chest or CT of the chest. There is no pleural effusion or pneumothorax DICTATION LOCATION: Location [address] [place] [address] us Erma SHAFFER DIAGNOSTIC IMAGING ORDERABLES F inal Result * (ABNORMAL) VITAMIN B12 AND FOLATE (01/27/2025 12:58 PM CDT) VITAMIN B12 1,656(H) 232 - 1,245 pg/mL 01/28/2025 10:[address] [facility] Comment:It has been reported that between 5 to 10% of patients with values between 200 and 400 pg/mL may experience neuropsychiatric and hematologic abnormalities due to occult B12 deficiency. Less than 1% of patients with values above 400 pg/mL will have symptoms. FOLATE, SERUM >20.0 >4.5 ng/mL 01/28/2025 10:[address] [facility] Blood Venipuncture / Unknown 01/27/2025 12:58 PM CDT 01/27/2025 1:31 PM CDT us Erma SHAFFER CHEMISTRY ORDERABLES Final Resu lt [facility]# [id number] [address] [place] [address] * RPR (01/27/2025 12:58 PM CDT) [facility] RPR NON-REACTI VE Non-Reacti ve 01/27/2025 2:[address] [facility] Blood Venipuncture / Unknown 01/27/2025 12:58 PM CDT 01/27/2025 1:31 PM CDT Erma SHAFFER CHEMISTRY ORDERABLES Final Resu lt [facility]# [id number] [address] [place] [address] * (ABNORMAL) C-REACTIVE PROTEIN (01/27/2025 4:41 AM CDT) [facility] CRP 30.1(H) <5.0 mg/L 01/27/2025 10:[address] [facility] Blood Venipuncture / Unknown 01/27/2025 4:41 AM CDT 01/27/2025 4:46 AM CDT Erma SHAFFER CHEMISTRY ORDERABLES Final Resu lt [facility]# [id number] [address] [place] [address] * (ABNORMAL) HEPATIC FUNCTION PANEL (01/27/2025 4:41 AM CDT) [facility] TOTAL PROTEIN 6.4(L) 6.7 - 8.6 g/dL 01/27/2025 3:[address] [facility] ALBUMIN 3.6 3.5 - 5.2 g/dL 01/27/2025 3:[address] [facility] BILIRUBIN TOTAL 0.6 0.2 - 1.1 mg/dL 01/27/2025 3:[address] [facility] BILIRUBIN DIRECT 0.3 <0.4 mg/dL 01/28/20 3:[address] [facility] ALKALINE PHOSPHATASE 59 40 - 129 U/L 01/27/2025 3:[address] [facility] AST 61(H) <41 U/L 01/27/2025 3:[address] [facility] Comment:Hemolysis present. R esult may be falsely elevated. ALT 36 <42 U/L 01/27/2025 3:57 PM CDT [facility] Blood Venipuncture / Unknown 01/27/2025 4:41 AM CDT 01/27/2025 4:[address] [facility] - 01/27/2025 3:57 PM CDT Samples containing indocyanine green cause interferences on Total and/or Direct Bilirubin and must not be measured. Ly Walsh MD CHEMISTRY ORDERABLES Fi nal Result [facility] CLIA# [id number] [address] [place] [address] * CK (01/26/2025 4:21 PM CDT) CK 108 20 - 200 U/L 01/26/2025 5:[address] [facility] Blood Venipuncture / Unknown 01/26/2025 4:21 PM CDT 01/26/2025 4:40 PM CDT Kraig Bowers MD CHEMISTRY ORDERABLES Final Resul t [facility] CLIA# [id number] [address] [place] [address] * LACTIC ACID (01/26/2025 12:34 PM CDT) LACTIC ACID 1.2 <=2.0 mmol/L 01/26/2025 1:[address] [facility] Blood Venipuncture / Unknown 01/26/2025 12:34 PM CDT 01/26/2025 1:28 PM CDT Kraig Bowers MD CHEMISTRY ORDERABLES Final Resul t [facility]# [id number] [address] [place] [address] * (ABNORMAL) DRUG SCREEN, URINE (01/26/2025 12:34 PM CDT) AMPHETAMINE QUAL, URINE Negative Negative 01/27/2025 10:08 AM CDT [facility] BARBITURATE QUAL, URINE Negative Negative 01/27/2025 10:08 AM CDT [facility] BENZODIAZEPINE QUAL, URINE Presumptive Positive(A) Negative 01/27/2025 10:08 AM CDT [facility] COCAINE QUAL URINE Negative Negative 01/27/2025 10:08 AM CDT [facility] OPIATE QUAL, URINE Negative Negative 01/27/2025 10:08 AM CDT [facility] CANNABINOIDS QUAL, URINE Negative Negative 01/27/2025 10:08 AM CDT [facility] PCP QUAL, URINE Negative Negative 10:08 AM CDT [facility] OXYCODONE QUAL, URINE Negative Negative 01/27/2025 10:08 AM CDT [facility] METHADONE QUAL, URINE Negative Negative 01/27/2025 10:08 AM CDT [facility] FENTANYL QUAL, URINE Negative Negative 01/27/2025 10:08 AM CDT [facility] CREATININE, URINE 125.0 40.0 - 278.0 mg/dL 01/27/2025 10:08 AM CDT [facility] Comment:Reference Range vari es with fluid intake and diet. Urine URINE SPECIMEN OBTAINED BY CLEAN CATCH PROCEDURE / Unknown Collection / Unknown 01/26/2025 12:34 PM CDT 01/26/2025 12:49 PM CDT [facility] - 01/27/2025 10:08 AM CDT This test is a qualitative screen. The presumptive positive results should not be used for legal purposes. If confirmation of results is desired, the lab must be contacted without delay. Drug Ref. Range Screening Threshold Amphetamines Negative 500 ng/mL Barbiturates Negative 200 ng/mL Benzodiazepines Negative 100 ng/mL Cannabinoids Negative 50 ng/mL Cocaine Negative 150 ng/mL Methadone Negative 300 ng/mL Opiates Negative 300 ng/mL Oxycodone Negative 100 ng/mL Phencyclidine Negative 25 ng/mL Fentanyl Negative 5 ng/mL Erma SHAFFER URINE ORDERABLES Final Result [facility]# [id number] 5 [facility] [place] [address] * (ABNORMAL) HEMOGLOBIN A1C (01/25/2025 11:16 PM CDT) HEMOGLOBIN A1C 8.2(H) <5.7 % 01/26/2025 12:01 AM CDT [facility] EST. AVG GLUCOSE, A1C 189 mg/dL 01/26/2025 12:01 AM CDT [facility] Blood Venipuncture / Unknown 01/25/2025 11:16 PM CDT 01/25/2025 11:27 PM CDT [facility] - 01/26/2025 12:01 AM CDT HGB A1C INTERPRETATION NORMAL: <5.7% PRE-DIABETES: 5.7 - 6.4% DIABETES: 6.5% OR GREATER Diana Harris MD CHEMISTRY ORDERABLES Final Result [facility]# [id number] [address] [place] [address] from Last 3 Months Insurance MEDICARE PART A AND B MEDICARE PART A AND B Advance Directives For more information, please contact: [phone] * Full Code (Latest Code Status on File) Date Activated Date Inactivated Comments 01/27/2025 10:02 AM 02/09/2025 5:30 PM * Default Full Code - Needs Discussion Date Activated Date Inactivated Comments 01/27/2025 7:12 AM 01/27/2025 10:02 AM * Full Code Date Activated Date Inactivated Comments 01/25/2025 10:46 PM 01/26/2025 4:45 PM
--- OUTSIDE RECORDS SUMMARY | 2025-02-23 17:24 | XMS_ITS | Encounter Summary ---
Author Organization [facility] Address [address] [place] [address] Care Team Providers Care Porcelain Enameling Supervisor Name Role Phone Fam Miller MD Primary Care Provider [phone] Martha Rodriguez APRN, NP-C Unavailable [phone] Daren Bailon MD Unavailable [phone] Arin Gamez MD Unavailable [phone] Kellie Fermin ANP-BC Unavailable [phone] Fredrick Camarena MD Unavailable [phone] Encounter Details Date Type Department Care Team (Late Contact Info) Description 04/05/2019 Abstract [facility] [address] [place] [address] , Generic Conversion, Social History Tobacco Use [...] Description 06/16/2025 11:15 AM CDT Office Visit [facility] [address] [place] [phone] Fredrick Camarena MD [address] [address] documented as of this encounter Visit Diagnoses Not on filedocumented in this encounter Care Teams Porcelain Enameling Supervisor Relationship Specialty Start Date End Date Fam Miller MD [address] [place] [phone] PCP - General INTERNAL MEDICINE 12/25/22 Martha Rodriguez APRN, SUPERVISOR CUTTING DEPARTMENT-C [address] [phone] Monument Manager Plant NURSE PRACTITIONER 12/25/22 02/13/24 Daren Bailon MD [address] [place] [address] Monument Manager Plant CARDIOVASCULAR DISEASE 12/25/22 02/13/24 Arin Gamez MD [address] [place] [address] INTERVENTIONAL CARDIOLOGY 02/14/24 01/02/25 Kellie Fermin, BANNER- [address] [place] [address] Nurse Practitioner NURSE PRACTITIONER ADULT HEALTH 02/14/24 Fredrick Camarena MD [address] [address] Physician INTERVENTIONAL CARDIOLOGY 01/02/25 documented as of this encounter
--- OUTSIDE RECORDS SUMMARY | 2025-02-23 17:24 | XMS_ITS | Encounter Summary ---
Author Organization [facility] Address [address] [place] [address] Care Team Providers Care Edger Machine Setter Name Role Phone Fam Miller MD Primary Care Provider [phone] Martha Rodriguez APRN, NP-C Unavailable Daren Bailon MD Unavailable [phone] Arin Gamez MD Unavailable [phone] Kellie Fermin ANP-BC Unavailable [phone] Fredrick Camarena MD Unavailable [phone] Encounter Details Date Type Department Care Team (Late st Contact Info) Description 02/14/2023 Abstract [facility] [address] [place] [phone] Daren Bailon MD [address] [place] [phone] Social History Tobacco Use Types Packs/Day Years [...] Upcoming Encounters Date Type Department Care Team ([facility] st Contact Info) Description 06/16/2025 11:15 AM CDT Office Visit [facility] [address] [place] [phone] Fredrick Camarena MD [address] [address] documented as of this encounter Visit Diagnoses Not on filedocumented in this encounter Care Teams Edger Machine Setter Relationship Specialty Start Date End Date Fam Miller MD [address] [place] [address] PCP - General INTERNAL MEDICINE 12/25/22 Martha Rodriguze, LEAD WEB DEVELOPER, PHOTOGRAPHIC PLATE MAKER-C [address] [address] [place] It Applications Developer NURSE PRACTITIONER 12/25/22 02/13/24 Daren Bailon MD [address] [place] [phone] [place] [employer] Applications Developer CARDIOVASCULAR DISEASE 12/25/22 02/13/24 Arin Gamez MD [address] [place] [phone] INTERVENTIONAL CARDIOLOGY 02/14/24 01/02/25 Kellie Fermin, ANP- [address] [place] [address] Nurse Practitioner NURSE PRACTITIONER ADULT HEALTH 02/14/24 Fredrick Camarena MD [address] [address] Physician INTERVENTIONAL CARDIOLOGY 01/02/25 documented as of this encounter
--- OUTSIDE RECORDS SUMMARY | 2025-02-23 17:25 | XMS_ITS | Clinical Summary ---
Author Organization [facility] Address [address] [place] [address] Phone Care Team Providers Care Inflated Pad Buffer Name Role Phone Unavailable Primary Care Provider [...] - 02/09/2025 3:24 PM CDT Hospital Encounter [address] [place] [address] Denis Song, DO Harris, MD Robinson Cortez Tiago, MD Hilliard, MD Antonio Nuñez Kamran A, MD DKA (diabetic ketoacidosis) ([facility]) Discharge Disposition: Rehab Facility IP from Last [...] POC GLUCOSE Routine 01/27/2025 12:47 PM CDT NOTCHER EVALUATE AND TREAT Routine 11:09 AM CDT [...] - 99 mg/dL 02/09/2025 12:39 PM CDT [facility] LABORATORY [facility] SPECIMEN SOURCE, GLUCOSE POC Whole Blood 02/09/2025 12:39 PM CDT [facility] LAB[facility] COMMENT, GLU POC Notified RN/MD 02/09/2025 12:39 PM CDT [facility] Blood, whole 02/09/2025 12:3 9 PM CDT 02/09/2025 1:33 PM CDT Manpreet Alvarez MD POINT OF CARE TESTING Final Res ult [facility] LABORATORY SERVICES [facility]# [id number] [address] [facility] [place] [address] * EKG 12-LEAD (02/06/2025 11:02 PM CDT) Only the most recent of5 resultswithin the time period is included. 02/06/2025 11:0 2 PM CDT Narrative INTERFACE SYSTEM - 02/07/2025 10:25 AM CDT [facility] [address] [place] [address] Test Date: 2025-02-06 Pat Name: LAFOURCHE, [facility] Department: 60 Room: [facility] Gender: Male Materials Branch Chief: [id number] : 1945 Requested By: DENIS Hartman Order Number: [id number] Reading TRISTAN Dsouza Measurements Intervals [place] Rate: 112 P: 76 VT: 139 QRS: 58 QRSD: 95 T: 16 QT: 367 QTc: 501 Interpretive Statements Sinus tachycardia Minimal ST depression, inferior leads Prolonged QT interval Electronically Signed On 02-07-2025 10:25:30 CDT by Gildardo Dsouza Procedure Note Gildardo Dsouza MD - 02/07/2025 [facility] [address] [place] [address] Test Date: 2025-02-06 Pat Name: MARVIN TRENTON Department: 60 Room: [facility] 1 Gender: Male Materials Branch Chief: [id number] : 1945 Requested By: DENIS Hartman Order Number: [id number] Reading TRISTAN Dsouza Measurements Intervals [place] Rate: 112 P: 76 VT: 139 QRS: 58 QRSD: 95 T: 16 [...] - 145 mmol/L 02/06/2025 12:21 PM [facility] POTASSIUM 3.9 3.5 - 5.0 mmol/L 02/06/2025 12:21 PM [facility] - [facility] CHLORIDE 107 98 - 107 mmol/L 02/06/2025 12:21 PM [facility] CO2 21(L) 22 - 29 mmol/L 02/06/2025 12:21 PM [facility] - . [facility] CALCIUM 8.8 8.6 - 10.2 mg/dL 02/06/2025 12:21 PM [facility] BUN 13 8 - 23 mg/dL 02/06/2025 12:21 PM [facility] - . [facility] CREATININE 1.07 0.67 - 1.17 mg/dL 02/06/2025 12:21 PM [facility] - . [facility] Comment:The GFR result is no t clinically significant on patients <18 or >70 years of age. GLUCOSE 171(H) 74 - 99 mg/dL 02/06/2025 12:21 PM [facility] TOTAL PROTEIN 6.7 6.7 - 8.6 g/dL 02/06/2025 12:21 PM [facility] - [facility] ALBUMIN 3.3(L) 3.5 - 5.2 g/dL 02/06/2025 12:21 PM [facility] - . [facility] BILIRUBIN TOTAL 1.0 0.2 - 1.1 mg/dL 02/06/2025 12:21 PM [facility] LABORATORY SERVICES - . [facility] ALKALINE PHOSPHATASE 108 40 - 129 U/L 02/06/2025 12:21 PM [facility] AST 44(H) <41 U/L 02/06/2025 12:21 PM [facility] LABORATORY SERVICES [facility] Comment:Hemolysis present. R esult may be falsely elevated. ALT 33 <42 U/L 02/06/2025 12:21 PM [facility] GFR >60 mL/min/1.7 3 sq meter 02/06/2025 12:21 PM [facility] Comment:eGFR calculated with 2020 CKD-EPI equation. Vegetarian diet, extremely high or low muscle mass, and may affect results. Cystatin C with Glomerular Filtration Rate is a suitable alternative for these patients. ANION GAP 13 8 - 16 mmol/L 02/06/2025 12:21 PM [facility] Blood Venipuncture / Unknown 02/06/2025 11:23 AM CDT 02/06/2025 11:38 AM CDT [facility] - 02/06/2025 12:21 PM CDT Samples containing indocyanine green cause interferences on Total and/or Direct Bilirubin and must not be measured. us Manpreet Alvarez MD CHEMISTRY ORDERABLES Final Resu lt [facility]# [id number] [address] [place] [address] * CBC WITH DIFFERENTIAL (02/06/2025 11:22 AM CDT) Only the most recent of9 resultswithin the time period is included. WBC 6.3 4.0 - 9.8 K/uL 02/06/2025 11:43 AM [facility] [employer]On [facility] RBC 4.91 4.50 - 5.40 M/uL 02/06/2025 11:43 AM [facility] LABORATORY [facility] HEMOGLOBIN 14.5 13.6 - 16.5 g/dL 02/06/2025 11:43 AM [facility] HEMATOCRIT 43.0 40.0 - 48.0 % 02/06/2025 11:43 AM [facility] [employer] [facility] MCV 87.6 82.0 - 99.0 fL 02/06/2025 11:43 AM CDT [facility] LABORATORY SERVICES - [facility] MCH 29.5 27.2 - 32.6 pg 02/06/2025 11:43 AM CDT [facility] - [facility] MCHC 33.7 31.5 - 35.5 g/dL 02/06/2025 11:43 AM CDT [facility] - [facility] RDW 14.1 11.5 - 14.5 % 02/06/2025 11:43 AM CDT [facility] - [facility] RDW-STDEV 44.0 37.1 - 48.7 fL 02/06/2025 11:43 AM CDT [facility] - [facility] PLATELETS 347 140 - 350 K/uL 02/06/2025 11:43 AM CDT [facility] - [facility] MPV 10.0 9.3 - 12.4 fL 02/06/2025 11:43 AM CDT [facility] - [facility] NEUTROPHILS 64 % 02/06/2025 11:43 AM CDT [facility]ORY SERVICES - . [facility] LYMPHOCYTES 27 % 02/06/2025 11:43 AM CDT [facility] - . [facility] MONOCYTES 6 % 02/06/2025 11:43 AM CDT [facility] - . [facility] EOSINOPHILS 2 % 02/06/2025 11:43 AM CDT [facility] SERVICES - . [facility] BASOPHILS 1 % 02/06/2025 11:43 AM CDT [facility] SERVICES - . [facility] IMMATURE GRANULOCYTES 0 % 02/06/2025 11:43 AM CDT [facility] SERVICES - . [facility] NEUTROPHIL ABSOLUTE 4.00 1.90 - 7.00 K/uL 02/06/2025 11:43 AM CDT [facility] SERVICES - . [facility] LYMPHOCYTE ABSOLUTE 1.72 0.70 - 4.50 K/uL 02/06/2025 11:43 AM CDT [facility] - . [facility] MONOCYTE ABSOLUTE 0.39 0.10 - 1.30 K/uL 02/06/2025 11:43 AM CDT [facility] - . [facility] EOSINOPHIL ABSOLUTE 0.10 0.00 - 0.70 K/uL 02/06/2025 11:43 AM CDT [facility] - [facility] BASOPHILS ABSOLUTE 0.04 0.00 - 0.20 K/uL 02/06/2025 11:43 AM CDT [facility] LABORATORY SERVICES - [facility] IMMATURE GRANULOCYTES ABSOLUTE 0.02 0.00 - 0.03 K/uL 02/06/2025 11:43 AM CDT [facility] LABORATORY SERVICES - [facility] Blood Venipuncture / Unknown 02/06/2025 11:22 AM CDT 02/06/2025 11:38 AM CDT Manpreet Alvarez MD HEMATOLOGY ORDERABLES Final Res ult [facility] CLIA# [id number] [address] [place] [address] * TROPONIN 6 HR, 5TH GEN (02/05/2025 11:50 PM CDT) Only the most recent of2 resultswithin the time period is included. TROPONIN T, 6 HR 5TH GEN 15 <=15 ng/L 02/06/2025 1:44 AM CDT [facility] LABORATORY [facility] DELTA 6HR TROPONIN T -9 See Interp. 02/06/2025 1:44 AM CDT [facility] LABORATORY [facility] Blood Venipuncture / Unknown 02/05/2025 11:50 PM CDT 02/06/2025 12:59 AM CDT Narrative [facility] LABORATORY [facility] - 02/06/2025 1:44 AM CDT Troponin Detectable but normal range. Delta indeterminate. Delay in collection of timed specimen beyond recommended collection interval. Results must be interpreted in clinical context. us Manpreet Alvarez MD CHEMISTRY ORDERABLES Final Resu lt Performing Organization Address City/[facility]/ZIP Co de Phone Number [facility] CLIA# [id number] [address] [place] [address] * (ABNORMAL) TROPONIN 2 HR, 5TH GEN (02/05/2025 8:52 PM CDT) Only the most recent of2 resultswithin the time period is included. TROPONIN T, 2 HR 5TH GEN 16(H) <=15 ng/L 02/05/2025 9:59 PM CDT [facility] DELTA 2HR TROPONIN T -8 See Interp. 02/05/2025 9:59 PM CDT [facility] LABORATORY [facility] Blood Venipuncture / Unknown 02/05/2025 8:52 PM CDT 02/05/2025 9:17 PM CDT Narrative [facility] LABORATORY [facility] - 02/05/2025 9:59 PM CDT Troponin elevated. Delta indeterminate. Delay in collection of timed specimen beyond recommended collection interval. Results must be interpreted in clinical context. Manpreet Alvarez MD CHEMISTRY ORDERABLES Final Resu Performing Organization Address City/[facility]/ZIP Co de Phone Number [facility] CLAZ# [id number] [address] [place] [address] * (ABNORMAL) TROPONIN BASELINE, 5TH GEN (02/05/2025 5:53 PM CDT) Only the most recent of2 resultswithin the time period is included. TROPONIN T, BASELINE 5TH GEN 24(H) <=15 ng/L 02/05/2025 6:58 PM CDT [facility] Blood Venipuncture / Unknown 02/05/2025 5:53 PM CDT 02/05/2025 6:29 PM CDT Narrative [facility] LABORATORY [facility] - 02/05/2025 6:58 PM CDT Troponin elevated. Manpreet Alvarez MD CHEMISTRY ORDERABLES Final Resu lt [facility] CLIA# [id number] [address] [place] [address] * MAGNESIUM LEVEL (02/05/2025 5:53 PM CDT) Only the most recent of9 resultswithin the time period is included. MAGNESIUM 1.8 1.6 - 2.4 mg/dL 02/05/2025 7:44 PM CDT [facility] LABORATORY SERVICES [facility] Blood Venipuncture / Unknown 02/05/2025 5:53 PM CDT 02/05/2025 6:29 PM CDT Manpreet Alvarez MD CHEMISTRY ORDERABLES Final Resu lt [facility]# [id number] [address] [place] [address] * (ABNORMAL) BASIC METABOLIC PANEL (02/05/2025 5:53 PM CDT) Only the most recent of12 resultswithin the time period is included. SODIUM 142 136 - 145 mmol/L 02/05/2025 7:44 PM CDT [facility] LABORATORY SERVICES [facility] POTASSIUM 3.3(L) 3.5 - 5.0 mmol/L 02/05/2025 7:44 PM T [facility] LABORATORY [facility] CHLORIDE 109(H) 98 - 107 mmol/L 02/05/2025 7:44 PM T [facility] LABORATORY [facility] CO2 22 22 - 29 mmol/L 02/05/2025 7:44 PM CDT [facility] LABORATORY [facility] CALCIUM 8.7 8.6 - 10.2 mg/dL 02/05/2025 7:44 PM CDT [facility] LABORATORY [facility] BUN 12 8 - 23 mg/dL 02/05/2025 7:44 PM CDT [facility] LABORATORY SERVICES [facility] CREATININE 1.02 0.67 - 1.17 mg/dL 02/05/2025 7:44 PM T [facility] LABORATORY SERVICES [facility] Comment:The GFR result is no t clinically significant on patients <18 or >70 years of age. GLUCOSE 168(H) 74 - 99 mg/dL 02/05/2025 7:44 PM CDT [facility] LABORATORY SERVICES [facility] GFR >60 mL/min/1.7 3 sq meter 02/05/2025 7:44 PM CDT [facility] LABORATORY [facility] Comment:eGFR calculated with 2020 CKD-EPI equation. Vegetarian diet, extremely high or low muscle mass, and may affect results. Cystatin C with Glomerular Filtration Rate is a suitable alternative for these patients. ANION GAP 11 8 - 16 mmol/L 02/05/2025 7:44 PM CDT [facility] Blood Venipuncture / Unknown 02/05/2025 5:53 PM CDT 02/05/2025 6:29 PM CDT us Manpreet Alvarez MD CHEMISTRY ORDERABLES Final Resu lt Performing Organization Address [facility] Co de Phone Number [facility] CLIA# [id number] [address] [place] [address] * PHOSPHORUS (02/02/2025 4:23 AM CDT) Only the most recent of8 resultswithin the time period is included. PHOSPHORUS 3.3 2.5 - 4.5 mg/dL 02/02/2025 5:57 AM CDT [facility] Blood Venipuncture / Unknown 02/02/2025 4:23 AM CDT 02/02/2025 5:06 AM CDT us Erma SHAFFER CHEMISTRY ORDERABLES Final Resu lt Performing Organization Address [facility] Co de Phone Number [facility] CLIA# [id number] [address] [place] [address] * MRI BRAIN W WO CONTRAST (02/02/2025 [...] gas pattern. DICTATION LOCATION: Location 1 - [facility] Narrative 02/01/2025 9:13 AM CDT EXAMINATION: [...] gas pattern. DICTATION LOCATION: Location 1 - [facility] Ly Walsh MD DIAGNOSTIC IMAGING ORDE JAJA Final Result * POTASSIUM LEVEL (01/30/2025 6:48 PM CDT) POTASSIUM 3.9 3.5 - 5.0 mmol/L 01/30/2025 7:33 PM CDT [facility] LABORATORY SERVICES [facility] Blood Venipuncture / Unknown 01/30/2025 6:48 PM CDT 01/30/2025 6:55 PM CDT Erma SHAFFER CHEMISTRY ORDERABLES Final Resu lt [facility] LABORATORY SERVICES [facility]# [id number] [address] [place] [address] * XR VIDEO SWALLOW W SPEECH (01/30/2025 [...] the provider's report. DICTATION LOCATION: Location - [facility] Procedure Note Kyrie Vu MD - 01/30/2025 X-RAY VIDEO SWALLOW WITH SPEECH THERAPY SUPERVISION DATE: 01/30/2025 HISTORY: Difficulty swallowing. Fluoroscopy time: 2.2 minutes Reference air kerma dose: 7.22 mGy Fluoroscopy was provided for patient's speech therapist to evaluate swallowing function. Please see the provider's report. DICTATION LOCATION: Location - [facility] Ly Walsh MD DIAGNOSTIC IMAGING ORDE JAJA Final Result * EEG (01/29/2025 5:14 PM CDT) Narrative Keyshawn Santo MD - 01/29/2025 5:14 PM CDT Keyshawn Santo MD 01/29/2025 5:15 PM Routine EEG Report Patient Name: Marvin Young [facility] Medical Record Number (MRN): [id number] Date of (): 1945 EEG Date: 01/29/2025 [...] URINE 26 mmol/L 01/29/2025 7:37 AM CDT [facility] LABORATORY [facility] POTASSIUM, URINE 30.6 mmol/L 01/29/2025 7:37 AM CDT [facility] LABORATORY [facility] CHLORIDE, URINE <25 mmol/L 01/29/2025 7:37 AM CDT [facility] LABORATORY [facility] Urine (Urine, straight in/out catheter) Collection / Unknown 01/29/2025 5:43 AM CDT 01/29/2025 6:01 AM CDT Narrative [facility] LABORATORY [facility] - 01/29/2025 7:37 AM CDT Reference Range Not Established Erma SHAFFER URINE ORDERABLES Final Result [facility] [employer]# [id number] 5 [facility] [place] [address] * OSMOLALITY, URINE (01/29/2025 5:43 AM CDT) OSMOLALITY, URINE 539 50 - 1,200 mOsm/kg 01/29/2025 7:32 AM [facility] LABORATORY [facility] Urine (Urine, straight in/out catheter) Collection / Unknown 01/29/2025 5:43 AM CDT 01/29/2025 6:01 AM CDT [facility] LAB[facility]ATORY SERVICES [facility] - 01/29/2025 7:32 AM CDT Reference range: 50-1200 mOsm/kg H2O, depending on fluid intake. Erma SHAFFER URINE ORDERABLES Final Result [facility] [id number] [address] [place] [address] * (ABNORMAL) URINALYSIS WITH REFLEX MICROSCOPIC (01/29/2025 5:43 AM CDT) Only the most recent of2 resultswithin the time period is included. COLOR UA Yellow Pale to Dark Yellow 01/29/2025 6:16 AM [facility] LABORATORY SERVICES [facility] CLARITY UA Slightly Cloudy(A) Clear 01/29/2025 6:16 AM [facility] LABORATORY [facility] SPECIFIC GRAVITY UA 1.030 1.003 - 1.035 01/29/2025 6:16 AM [facility]On [facility]. [facility] PH UA 5.0 5.0 - 8.0 01/29/2025 6:16 AM [facility] [employer] LABORATORY [facility]. [facility] LEUKOCYTE ESTERASE UA Negative Negative 01/29/2025 6:16 AM [facility] [employer] [facility]. [facility] NITRITE UA Negative Negative 01/29/2025 6:16 AM [facility] [employer] [facility]. [facility] PROTEIN UA 2+(A) Negative 01/29/2025 6:16 AM [facility] [employer] WriteOn [facility] GLUCOSE UA Negative Negative 01/29/2025 6:16 AM [facility] [employer] [facility]. [facility] KETONES UA Negative Negative 01/29/2025 6:16 AM [facility] [employer] LABORATORY [facility]. [facility] UROBILINOGEN UA Normal <2.0 mg/dL 6:16 AM CDT [facility] LABORATORY [facility] - . [facility] BILIRUBIN UA Negative Negative 01/29/2025 6:16 AM CDT [facility] LABORATORY [facility] - . [facility] BLOOD UA 2+(A) Negative 01/29/2025 6:16 AM CDT [facility] LABORATORY [facility] - . [facility] WBC UA 3-5(A) 0 - 2 /hpf 01/29/2025 6:16 AM CDT [facility] LABORATORY [facility] - . [facility] RBC UA 11-25(A) 0 - 2 /hpf 01/29/2025 6:16 AM CDT [facility] LABORATORY [facility] - . [facility] BACTERIA UA Negative Negative /hpf 01/29/2025 6:16 AM CDT [facility] LABORATORY [facility] - . [facility] EPITHELIAL CELLS, URINE 0-5 0 - 5 /hpf 01/29/2025 6:16 AM CDT [facility] LABORATORY [facility] - . [facility] GRANULAR CAST 11-25(A) None Seen /lpf 01/29/2025 6:16 AM CDT [facility] LABORATORY [facility] - . [facility] Urine (Urine, straight in/out catheter) Collection / Unknown 01/29/2025 5:43 AM CDT 01/29/2025 6:01 AM CDT Ly Walsh MD URINE ORDERABLES Final Result [facility]# [id number] [address] [facility] [place] [address] * US RENAL AND BLADDER (01/28/2025 8:17 PM CDT) Anatomical Region Laterality Modality Abdomen Ultrasound 01/28/2025 8:32 PM CDT Impressions 01/28/2025 8:37 PM CDT IMPRESSION: Unremarkable renal ultrasound. DICTATION LOCATION: Location 1 - [facility] Narrative 01/28/2025 8:37 PM CDT RENAL [...] Unremarkable renal ultrasound. DICTATION LOCATION: Location 1 [facility] us Erma SHAFFER US ORDERABLES Final [...] EDMUND Grullon and Emily Frazier RN via [employer] secure chat. They reported the tube has [...] EDMUND Grullon and Emily Frazier RN via [employer] secure chat. They reported the tube has been removed. DICTATION LOCATION: Location 4 us Erma SHAFFER DIAGNOSTIC IMAGING ORDERABLES F inal Result * ANGIOTENSIN CONVERTING ENZYME (01/28/2025 4:34 PM CDT) ANGIOTENSIN CONVERTING ENZYME 36 9 - 67 U/L 01/30/2025 2:03 PM CDT [facility] REFERENCE LAB [facility] Blood Venipuncture / Unknown 01/28/2025 4:34 PM CDT 01/28/2025 4:54 PM CDT Narrative [facility] - 01/30/2025 2:03 PM CDT Performing Organization Information: Site ID: [place] Name: [facility] [employer] Address: [address] [place], [place] [address] [address] Director: Lamine Daily MD us Ly Walsh MD CHEMISTRY ORDERABLES Fi nal Result [facility] [phone] * AMMONIA LEVEL (01/28/2025 4:34 PM CDT) AMMONIA 22.5 16.0 - 60.0 umol/L 01/28/2025 5:16 PM CDT [facility] Blood, venous Venipuncture / Unknown 01/28/2025 4:34 PM CDT 01/28/2025 4:50 PM CDT us Ly Walsh MD CHEMISTRY ORDERABLES Fi nal Result [facility] LABORATORY SERVICES [facility]# [id number] [address] [facility] [place] [id number] * US VENOUS DOPPLER LEG BILATERAL (01/28/2025 3:22 PM CDT) Anatomical Region Laterality Modality Lower Extremity Ultrasound 01/28/2025 1:35 PM CDT Narrative 01/28/2025 5:[address] [facility] [address] [place] [address] [email or web address] Venous Exam Complete Lower Extremity Duplex Patient: Marvin Young Study ID: [id number] Gender: M : 1945 Age: 79 Race: CAU Height Study Date: 01/28/2025 Weight: Access. #: [id number] *Referring Physician:Erma Mancilla Nicole *Ordering Physician:Erma Mancilla *Software Development Manager:Katarzyna Redding Indications: DVT per ordering by provider. [...] Prepared and Electronically Authenticated Remington Weller M.D. [id number]:20:18 Procedure Note Remington Weller MD - 01/28/[address] [address] [email or web address] Venous Exam Complete Lower Extremity Duplex Patient: Marvin Young Study ID:[id number] Gender: M :1945 Age: 79 Race: CAU Height Study Date:01/28/2025 Weight: Access. #:[id number] *Referring Physician:Erma Mancilla Nicole *Ordering Physician:Erma Mancilla *Software Development Manager:Ade LunaHaqKatarzyna Indications: DVT per ordering by provider. [...] Prepared and Electronically Authenticated Remington Weller M.D. [id number] Erma SHAFFER ORDERABLES Final Result * (ABNORMAL) PROCALCITONIN (01/28/2025 11:24 AM CDT) PROCALCITONIN 0.31(H) <=0.25 ng/mL 01/28/2025 12:28 PM CDT [facility] Blood Venipuncture / Unknown 01/28/2025 11:24 AM CDT 01/28/2025 11:43 AM CDT Narrative [facility] - 01/28/2025 12:28 PM CDT The [...] Erma SHAFFER CHEMISTRY ORDERABLES Final Resu lt [facility]# [id number] [address] [facility] [place] [id number] * MRI BRAIN WO CONTRAST (01/28/2025 10:31 AM CDT) Anatomical Region Laterality Modality Head Magnetic Resonan ce 01/28/2025 10:3 1 AM CDT Impressions 01/28/2025 10:40 AM CDT IMPRESSION: 1. Significantly limited exam due to extensive motion. No definite acute intracranial findings; consider repeat MRI when patient is better able to tolerate the exam if there is continued clinical concern. DICTATION LOCATION: Location [address] [place] [address] Narrative 01/28/2025 10:40 AM CDT EXAMINATION: MRI [...] is continued clinical concern. DICTATION LOCATION: Location [address] [place] [address] Kraig Bowers MD MR ORDERABLES Final Result [...] use of Iterative Reconstruction Technique. DICTATION LOCATION: [address] 01/28/2025 10:42 AM CDT EXAM: CTA [...] of Iterative Reconstruction Technique. DICTATION LOCATION: Location [address] [place] [address] ORDERABLES Final Result * C. DIFFICILE DETECTION (01/28/2025 9:15 AM CDT) Pathologist [facility] TOXIGENIC C DIFFICILE NOT DETECTED Not Detected 01/28/2025 10:49 AM CDT [facility] Stool STOOL SPECIMEN / Unknown Collection / Unknown 01/28/2025 9:15 AM CDT 01/28/2025 9:20 AM CDT Narrative [facility] LABORATORY [facility] - 01/28/2025 10:49 AM CDT This assay [...] ORDERABL ES Final Result Performing Organization Address [facility] Co de Phone Number [facility] WriteOn [facility] CLIA# [id number] [address] [facility] [place] [address] * (ABNORMAL) TSH REFLEXIVE (01/28/2025 3:33 AM CDT) [facility] TSH 0.10(L) 0.27 - 4.20 uIU/mL 01/28/2025 10:35 AM CDT [facility] Blood Venipuncture / Unknown 01/28/2025 3:33 AM CDT 01/28/2025 3:40 AM CDT us Erma SHAFFER CHEMISTRY ORDERABLES Final Resu lt Performing Organization Address City/[facility]/ZIP Co de Phone Number [facility]# [id number] [address] [place] [address] * (ABNORMAL) T3 FREE (01/28/2025 3:33 AM CDT) [facility] T3 FREE 1.4(L) 2.0 - 4.4 pg/mL 01/28/2025 11:58 AM CDT [facility] Blood Venipuncture / Unknown 01/28/2025 3:33 AM CDT 01/28/2025 3:40 AM CDT Erma SHAFFER CHEMISTRY ORDERABLES Final Resu lt [facility]# [id number] [address] [place] [address] * T4 FREE (01/28/2025 3:33 AM CDT) [facility] T4 FREE 1.52 0.90 - 1.70 ng/dL 01/28/2025 10:59 AM CDT [facility] Blood Venipuncture / Unknown 01/28/2025 3:33 AM CDT 01/28/2025 3:40 AM CDT Erma SHAFFER CHEMISTRY ORDERABLES Final Resu lt [facility]# [id number] [address] [place] [address] * MRSA PCR RAPID SCREEN (01/27/2025 4:28 PM CDT) [facility] MRSA PCR RESULT MRSA not detected MRSA not detected 01/27/2025 6:17 PM CDT [facility] Surveillance ANTERIOR NARES SWAB / Unknown Collection / Unknown 01/27/2025 4:28 PM CDT 01/27/2025 4:41 PM CDT [facility] - 01/27/2025 6:17 PM CDT This assay is used to detect Methicillin-Resistant S. aureus (MRSA) colonization of the nares. PLEASE NOTE: This test has not been approved to monitor effectiveness of MRSA decolonization. Residual DNA may temporarily be present after successful decolonization. This test was performed using an FDA approved screening methodology. Ly Walsh MD MICROBIOLOGY - GENERAL ORDERABLES Final Result [facility]# [id number] [address] ABHINAV NAEL [place]ON[place] [address] * (ABNORMAL) RESPIRATORY PATHOGEN PCR PANEL (01/27/2025 4:28 PM CDT) COVID-19 PCR DETECTED( A) Not Detected 01/27/2025 6:18 PM CDT [facility] Upper Respiratory ENTIRE NASOPHARYNX / Unknown Collection / Unknown 01/27/2025 4:28 PM CDT 01/27/2025 4:41 PM CDT [facility] - 01/27/2025 6:18 PM CDT Results called [...] GENERAL ORDERABLES Final Result Performing Organization Address [facility] Co de Phone Number [facility] LABORATORY SERVICES [facility]# [id number] [address] [place] [address] * ENCEPHALOPATHY, AUTOIMMUNE EVALUATION, CSF (01/27/2025 4:20 PM CDT) TISSUE IFA OBSERVATION, CSF SEE NOTE 02/05/2025 3:32 AM CDT [facility] Comment: No fluorescence pattern suggestive of the presence of autoantibodies to neuronal antigens. AGNA (SOX1) AB, IFA, CSF NEGATIVE NEGATIVE 02/05/2025 3:32 AM CDT [facility] AMPHIPHYSIN AB, IFA, CSF NEGATIVE NEGATIVE 02/05/2025 3:32 AM CDT [facility] ANNA1 (HU) AB, IFA, CSF NEGATIVE NEGATIVE 02/05/2025 3:32 AM CDT [facility] ANNA2 (RI) AB, IFA, CSF NEGATIVE NEGATIVE 02/05/2025 3:32 AM CDT [facility] ANNA3 AB, IFA, CSF NEGATIVE NEGATIVE 2024 3:32 AM CDT [facility] AQUAPORIN 4 AB, IFA, CSF NEGATIVE NEGATIVE 02/05/2025 3:32 AM CDT [facility] CRMP5/CV2 AB, IFA, CSF NEGATIVE NEGATIVE 02/05/2025 3:32 AM CDT [facility] GAD65 AB, IFA, CSF NEGATIVE NEGATIVE 2024 3:32 AM CDT [facility] MA2/TA AB, IFA, CSF NEGATIVE NEGATIVE 02/05/2025 3:32 AM CDT [facility] MYELIN AB, IFA, CSF NEGATIVE NEGATIVE 02/05/2025 3:32 AM CDT [facility] PCA1 (YO) AB, IFA, CSF NEGATIVE NEGATIVE 02/05/2025 3:32 AM CDT [facility] PCA2 AB, IFA, CSF NEGATIVE NEGATIVE 025 3:32 AM CDT [facility] GRAPHIC COORDINATOR TR (DNER) AB, IFA,CSF NEGATIVE NEGATIVE 02/05/2025 3:32 AM CDT [facility] Comment: The absence of detectable anti-neuronal autoantibodies in this test does not exclude an idiopathic or paraneoplastic autoimmune neurological disorder. Additional testing may be indicated. Testing using both CSF and serum increases sensitivity for detection. For additional information, please refer to [email or web address]/[email or web address] (This link is being provided for informational/educational purposes only.) This test was developed and its analytical performance characteristics have been determined by [facility]. It has not been cleared or approved by the FDA. This assay has been validated pursuant to the CLIA regulations and is used for clinical purposes. AQP4 AB (IGG), SCREEN, CSF NEGATIVE NEGATIVE 02/05/2025 3:32 AM CDT [facility] Comment: This test was developed and its analytical performance characteristics have been determined by [facility]. It has not been cleared or [...] analytical performance characteristics have been determined by [facility]. It has not been cleared or approved by the FDA. This assay has been validated pursuant to the CLIA regulations and is used for clinical purposes. DPPX AB CBA, CSF NEGATIVE NEGATIVE 02/06/20 25 3:32 AM CDT [facility] Comment: This test was developed and its analytical performance characteristics have been determined by [facility]. It has not been cleared or approved by the FDA. This assay has been validated pursuant to the CLIA regulations and is used for clinical purposes. VOLTAGE GATED POTASSIUM CHANNEL (VGKC) AB, CSF <20 <20 pmol/L 02/05/2025 3:32 AM CDT [facility] Comment: This test was developed and its analytical performance characteristics have been determined by [employer]. It has not been cleared or approved [...] PM CDT 01/28/2025 10:00 AM CDT Narrative [facility] REFERENCE LAB [facility] - 02/05/2025 3:32 AM CDT Performing Organization Information: Site ID: EZ Name: [employer], Address: [address] [place] [address] Director: Isidra Henderson MD,PhD,ELIZABETH Performing Organization Information: Site ID: EZ Name: [employer], Address: [address] [place] [address] Director: Isidra Henderson MD,PhD,ELIZABETH Performing Organization Information: Site ID: EZ Name: [employer], Address: [address] [place] [address] Director: Isidra Henderson MD,PhD,ELIZABETH Erma SHAFFER BODY FLUIDS AND STOOLS Final Re sult [facility] REFERENCE LAB [facility] [phone] * SPINAL FLUID CULTURE WITH GRAM STAIN (01/27/2025 4:20 PM CDT) CULTURE No growth 01/31/2025 7:12 AM CDT [facility] LABORATORY [facility] GRAM STAIN No organisms observed 01/31/2025 7:12 AM CDT [facility] GRAM STAIN 1+ (Rare or Occasional) Mononuclear WBC 01/31/2025 7:12 AM CDT [facility] LABORATORY SERVICES - [facility] Cerebrospinal fluid CEREBROSPINAL FLUID / Unknown Collection / Unknown 01/27/2025 4:20 PM CDT 01/27/2025 4:41 PM CDT Erma SHAFFER MICROBIOLOGY - GENERAL ORDERABL ES Final Result Performing Organization Address [facility]/ZIP Co de Phone Number [facility] WriteOn [facility] CLIA# [id number] [address] [place] [address] * SPINAL FLUID CELL COUNT W/REFLEX DIFFERENTIAL (01/27/2025 4:20 PM CDT) TUBE #, CSF 3 01/27/2025 5:24 PM CDT [facility] LABORATORY [facility] APPEARANCE, CSF Clear 01/27/2025 5:24 PM CDT [facility] LABORATORY [facility] COLOR, CSF Colorless 01/27/2025 5:24 PM CDT [facility] LABORATORY [facility] WBC, CSF 0 0 - 5 /uL 01/27/2025 5:24 PM CDT [facility] LABORATORY [facility] RBC, CSF 1 0 - 5 /uL 01/27/2025 5:24 PM CDT [facility] LABORATORY [facility] Cerebrospinal fluid CEREBROSPINAL FLUID / Unknown Collection / Unknown 01/27/2025 4:20 PM CDT 01/27/2025 4:41 PM CDT Erma SHAFFER BODY FLUIDS AND STOOLS Final Re sult [facility] WriteOn [facility] CLIA# [id number] [address] [place] [address] * XR CHEST PA OR AP 1 [...] effusion or pneumothorax DICTATION LOCATION: Location - [facility] Procedure Note Jono Carey MD - [...] pleural effusion or pneumothorax DICTATION LOCATION: Location [address] [place] [address] us Erma SHAFFER DIAGNOSTIC IMAGING ORDERABLES F inal Result * (ABNORMAL) VITAMIN B12 AND FOLATE (01/27/2025 12:58 PM CDT) VITAMIN B12 1,656(H) 232 - 1,245 pg/mL 01/28/2025 10:50 AM CDT [facility] [employer] [facility] Comment:It has been reported that between 5 to 10% of patients with values between 200 and 400 pg/mL may experience neuropsychiatric and hematologic abnormalities due to occult B12 deficiency. Less than 1% of patients with values above 400 pg/mL will have symptoms. FOLATE, SERUM >20.0 >4.5 ng/mL 01/28/2025 10:50 AM CDT [facility] [employer] [facility] Blood Venipuncture / Unknown 01/27/2025 12:58 PM CDT 01/27/2025 1:31 PM CDT us Erma SHAFFER CHEMISTRY ORDERABLES Final Resu lt [facility] WriteOn [facility]# [id number] [address] [place] [address] * RPR (01/27/2025 12:58 PM CDT) [facility] RPR NON-REACTI VE Non-Reacti ve 01/27/2025 2:23 PM CDT [facility] LABORATORY [facility] Blood Venipuncture / Unknown 01/27/2025 12:58 PM CDT 01/27/2025 1:31 PM CDT Erma SHAFFER CHEMISTRY ORDERABLES Final Resu lt [facility] [employer] [facility]# [id number] [address] [place] [address] * (ABNORMAL) C-REACTIVE PROTEIN (01/27/2025 4:41 AM CDT) [facility] CRP 30.1(H) <5.0 mg/L 01/27/2025 10:28 AM CDT [facility] LABORATORY [facility] Blood Venipuncture / Unknown 01/27/2025 4:41 AM CDT 01/27/2025 4:46 AM CDT Erma SHAFFER CHEMISTRY ORDERABLES Final Resu lt [facility] [employer] [facility]# [id number] [address] [place] [address] * (ABNORMAL) HEPATIC FUNCTION PANEL (01/27/2025 4:41 AM CDT) [facility] TOTAL PROTEIN 6.4(L) 6.7 - 8.6 g/dL 01/27/2025 3:57 PM CDT [facility] LABORATORY SERVICES [facility]. [facility] ALBUMIN 3.6 3.5 - 5.2 g/dL 01/27/2025 3:57 PM CDT [facility] LABORATORY [facility] BILIRUBIN TOTAL 0.6 0.2 - 1.1 mg/dL 01/27/2025 3:57 PM CDT [facility] LABORATORY [facility] BILIRUBIN DIRECT 0.3 <0.4 mg/dL 01/28/20 3:57 PM CDT [facility] LABORATORY [facility] ALKALINE PHOSPHATASE 59 40 - 129 U/L 01/27/2025 3:57 PM CDT [facility] LABORATORY [facility] AST 61(H) <41 U/L 01/27/2025 3:57 PM CDT [facility] LABORATORY [facility] Comment:Hemolysis present. R esult may be falsely elevated. ALT 36 <42 U/L 01/27/2025 3:57 PM CDT [facility] Blood Venipuncture / Unknown 01/27/2025 4:41 AM CDT 01/27/2025 4:46 AM CDT Narrative [facility] LABORATORY [facility] - 01/27/2025 3:57 PM CDT Samples containing indocyanine green cause interferences on Total and/or Direct Bilirubin and must not be measured. Ly Walsh MD CHEMISTRY ORDERABLES Fi nal Result [facility] CLIA# [id number] [address] [place] [address] * CK (01/26/2025 4:21 PM CDT) CK 108 20 - 200 U/L 01/26/2025 5:25 PM CDT [facility] LABORATORY [facility] Blood Venipuncture / Unknown 01/26/2025 4:21 PM CDT 01/26/2025 4:40 PM CDT Kraig Bowers MD CHEMISTRY ORDERABLES Final Resul t [facility] CLIA# [id number] [address] [place] [address] * LACTIC ACID (01/26/2025 12:34 PM CDT) LACTIC ACID 1.2 <=2.0 mmol/L 01/26/2025 1:50 PM CDT [facility] LABORATORY SERVICES [facility] Blood Venipuncture / Unknown 01/26/2025 12:34 PM CDT 01/26/2025 1:28 PM CDT Kraig Bowers MD CHEMISTRY ORDERABLES Final Resul t [facility] SERVICES [facility]# [id number] [address] [place] [address] * (ABNORMAL) DRUG SCREEN, URINE (01/26/2025 12:34 PM CDT) AMPHETAMINE QUAL, URINE Negative Negative 01/27/2025 10:08 AM CDT [facility] BARBITURATE QUAL, URINE Negative Negative 01/27/2025 10:08 AM CDT [facility] LABORATORY SERVICES [facility] BENZODIAZEPINE QUAL, URINE Presumptive Positive(A) Negative 01/27/2025 10:08 AM CDT [facility] LABORATORY SERVICES - [facility] COCAINE QUAL URINE Negative Negative 01/27/2025 10:08 AM CDT [facility]ORATORY SERVICES - [facility] OPIATE QUAL, URINE Negative Negative 01/27/2025 10:08 AM CDT [facility] LABORATORY SERVICES [facility] CANNABINOIDS QUAL, URINE Negative Negative 01/27/2025 10:08 AM CDT [facility] LABORATORY SERVICES - [facility] PCP QUAL, URINE Negative Negative 10:08 AM CDT [facility] LABORATORY SERVICES - [facility] OXYCODONE QUAL, URINE Negative Negative 01/27/2025 10:08 AM CDT [facility] LABORATORY SERVICES - [facility] METHADONE QUAL, URINE Negative Negative 01/27/2025 10:08 AM CDT [facility] LABORATORY SERVICES - [facility] FENTANYL QUAL, URINE Negative Negative 01/27/2025 10:08 AM CDT [facility] LABORATORY SERVICES [facility] CREATININE, URINE 125.0 40.0 - 278.0 mg/dL 01/27/2025 10:08 AM CDT [facility] Comment:Reference Range vari es with fluid intake and diet. Urine URINE SPECIMEN OBTAINED BY CLEAN CATCH PROCEDURE / Unknown Collection / Unknown 01/26/2025 12:34 PM CDT 01/26/2025 12:49 PM CDT [facility] - 01/27/2025 10:08 AM CDT This test [...] ng/mL Erma SHAFFER URINE ORDERABLES Final Result [facility]# [id number] [address] [place] [address] * (ABNORMAL) HEMOGLOBIN A1C (01/25/2025 11:16 PM CDT) HEMOGLOBIN A1C 8.2(H) <5.7 % 01/26/2025 12:01 AM CDT [facility] EST. AVG GLUCOSE, A1C 189 mg/dL 01/26/2025 12:01 AM CDT [facility] Blood Venipuncture / Unknown 01/25/2025 11:16 PM CDT 01/25/2025 11:27 PM CDT [facility] - 01/26/2025 12:01 AM CDT HGB A1C INTERPRETATION NORMAL: <5.7% PRE-DIABETES: 5.7 - 6.4% DIABETES: 6.5% OR GREATER Diana Harris MD CHEMISTRY ORDERABLES Final Result [facility]# [id number] [address] [place] [address] from Last 3 Months Insurance MEDICARE PART A AND B MEDICARE PART A AND B Advance Directives For more information, please contact: [phone] * Full Code (Latest Code Status on File) Date Activated Date Inactivated Comments 01/27/2025 10:02 AM 02/09/2025 5:30 PM * Default Full Code - Needs Discussion Date Activated Date Inactivated Comments 01/27/2025 7:12 AM 01/27/2025 10:02 AM * Full Code Date Activated Date Inactivated Comments 01/25/2025 10:46 PM 01/26/2025 4:45 PM
--- OUTSIDE RECORDS SUMMARY | 2025-02-23 17:25 | XMS_ITS | Encounter Summary ---
Author Organization [facility] Address [address] [place] [address] Care Team Providers Care Passenger Service Agent Name Role Phone Fam Miller MD Primary Care Provider [phone] Martha Rodriguez APRN, NP-C Unavailable Daren Bailon MD Unavailable [phone] Arin Gamez MD Unavailable [phone] Kellie Fermin ANP-BC Unavailable [phone] Fredrick Camarena MD Unavailable [phone] Encounter Details Date Type Department Care Team (Late st Contact Info) Description 02/07/2023 Hospital Orders Only [place] Pre/Post [address] [place], [place] [id number] Daren Bailon MD [address] [place] [phone] Social History Tobacco Use Types Packs/Day Years [...] Upcoming Encounters Date Type Department Care Team ([facility] st Contact Info) Description 06/16/2025 11:15 AM CDT Office Visit [facility] [address] [place] [phone] Fredrick Camarena MD [address] [address] documented as of this encounter Visit Diagnoses Not on filedocumented in this encounter Care Teams Passenger Service Agent Relationship Specialty Start Date End Date Fam Miller MD [address] [place] [address] PCP - General INTERNAL MEDICINE 12/25/22 Martha Rodriguez, CONSTRUCTION MGR, DOCKET CLERK-C [address] [phone] [place] [employer] T[employer] NURSE PRACTITIONER 12/25/22 02/13/24 Daren Bailon MD [address] [place] [phone] [place] [employer] Tender CARDIOVASCULAR DISEASE 12/25/22 02/13/24 Arin Gamez MD [address] [place] [phone] INTERVENTIONAL CARDIOLOGY 02/14/24 01/02/25 Kellie Fermin, ANP- [address] [place] [address] Nurse Practitioner NURSE PRACTITIONER ADULT HEALTH 02/14/24 Fredrick Camarena MD [address] [address] Physician INTERVENTIONAL CARDIOLOGY 01/02/25 documented as of this encounter
--- OUTSIDE RECORDS SUMMARY | 2025-02-23 17:25 | XMS_ITS | Clinical Summary ---
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) 01/25/2025 2:41 PM CDT - 01/25/2025 8:26 PM CDT Emergency [facility] [address] [facility] [facility] [address] [facility] [place] [address] Woodrow Dooley MD Medical Problem Discharge Disposition: Transfer to Acute Care Hospital 01/25/2025 Travel 12/17/2024 Telephone [facility] [address] [place] [address] Arin Gamez MD Reschedule from [...] Upcoming Encounters Date Type Department Care Team ([facility] st Contact Info) Description 06/16/2025 11:15 AM CDT Office Visit [facility] [place] [phone] Fredrick Camarena MD [address] [address] Health Maintenance Due Date Last Done Comments [...] this topic Medical Devices Implanted Type Area Storage Worker Device Identifier Shelf Expiration Date Model / Serial / Lot Cv Orsiro 3.0mm X 26mm [place] Mid Lad-02/13/2023 Implanted:01/27 by Fernando Plasencia MD (Quantity not on file) Stent Coronary LAD [employer] 07/10/2024 [id number] / / [id number] Procedures Procedure Name Priority Date/Time Associated Diagnosis [...] - 99 MG/DL 01/25/2025 8:03 PM CDT [facility] 01/25/2025 8:01 PM CDT us Woodrow Dooley MD POCT ORDERABLES - DEVICE Fi nal Result Performing Organization Address [facility] Co de Phone Number [facility] [place] [address], * LACTIC ACID W REFLEX (SEPSIS) (01/25/2025 5:29 PM CDT) Only the most recent of2 resultswithin the time period is included. LACTIC ACID VENOUS 1.5 0.4 - 2.0 MMOL/L 01/25/2025 5:54 PM CDT [facility] 01/25/2025 5:29 PM CDT us Woodrow Dooley MD LABORATORY Final Resul t [facility] [address] [place] [address], * CT HEAD WO CON (01/25/2025 4:18 [...] 4:23 PM Narrative 01/25/2025 4:24 PM CDT [place] [address] [place] [address] CT OF THE BRAIN WITHOUT CONTRAST INDICATION: [...] Procedure Note Waldo Tomlinson MD - 01/25/2025 [facility] [address] [facility] [place] [address] CT OF THE BRAIN WITHOUT CONTRAST INDICATION: [...] acute bony abnormalities. 2. Degenerative changes of eadg-bv-xsxtqkat degree. 3. 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 Ordered By: WOODROW DOOLEY Interpreted By: Waldo Tomlinson MD, 01/25/2025 4:19 PM Narrative 01/25/2025 4:[address] [place] [address] EXAMINATION: CT Cervical Spine without contrast CLINICAL [...] tissues show calcifications of the carotids of kvsn-yj-rpxycaem degree. The lung apex shows as visualized no focal opacities. Procedure Note Waldo Tomlinson MD - 01/25/[address] [place] [address] EXAMINATION: CT Cervical Spine without contrast CLINICAL [...] softtissues show calcifications of the carotids of hkew-wy-fgpmhfvn degree.The lung apex shows as visualized no focal opacities. IMPRESSION: 1. No acute bony abnormalities. 2. Degenerative changes of jjje-ua-srsreldu degree. 3. 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 Ordered By: WOODROW DOOLEY Interpreted By: Waldo Tomlinson MD, 01/25/2025 4:19 PM us Woodrow Dooley MD CT Final Resul t * (ABNORMAL) BETA-HYDROXYBUTYRATE (01/25/2025 4:18 PM CDT) BETA-HYDROXYBU TYRATE 5.1(H) 0.0 - 0.3 MMOL/L 01/25/2025 4:24 PM CDT [facility] 01/25/2025 4:18 PM CDT Woodrow Dooley MD LABORATORY Final Resul t [facility] [place] [address], * (ABNORMAL) Blood gas, venous (01/25/2025 4:18 PM CDT) Pathologist [facility] PH VENOUS 7.30(L) 7.32 - 7.43 01/25/2025 4:51 PM CDT [facility] PCO2 VENOUS 29.0 MMHG 01/25/2025 4:51 PM CDT [facility] Comment:NO REFERENCE RANGE H BEEN ESTABLISHED PO2 VENOUS 33.0 MM HG 01/25/2025 4:51 PM CDT [facility] Comment:NO REFERENCE RANGE H BEEN ESTABLISHED TOTAL CO2 VENOUS 15.2(L) 22.0 - 26.0 MMOL/L 01/25/2025 4:51 PM CDT [facility] BASE DEFICIT VENOUS 10.7 MMOL/L 01/25/2025 4:51 PM CDT [facility] Comment:NO REFERENCE RANGE H BEEN ESTABLISHED O2 SAT VENOUS 56 % 01/25/2025 4:51 PM CDT [facility] Comment:NO REFERENCE RANGE H BEEN ESTABLISHED BICARB VENOUS 14.3(L) 22.0 - 29.0 MMOL/L 01/25/2025 4:51 PM CDT [facility] O2 ADMIN VENOUS ROOM AIR 4:18 PM CDT [facility] 01/25/2025 4:18 PM CDT us Woodrow Dooley MD LABORATORY Final Resul t Performing Organization Address City/[facility]/ZIP Co de Phone Number [facility] [address] [place] [address], * (ABNORMAL) TROPONIN, QUANT (01/25/2025 4:18 PM CDT) Only the most recent of2 resultswithin the time period is included. Pathologist [facility] TROPONIN I HIGH SENSITIVITY 85(H) 0 - 76 ng/L 01/25/2025 4:46 PM CDT [facility] 01/25/2025 4:18 PM CDT us Woodrow Dooley MD LABORATORY Final Resul t [facility] [address] [place] [address], * XR PELVIS 1 OR 2 VIEWS [...] 4:34 PM Narrative 01/25/2025 4:35 PM [address] [place] [address] EXAM: PELVIS - SINGLE VIEW CLINICAL STATEMENT: fall COMPARISON: None available. FINDINGS: There is no malalignment. Mild degenerative changes at the hip joints. No acute bony abnormalities. Mild degenerative changes in the lower lumbar spine. Please correlate clinically. If the patient's symptoms remain unexplained and further needed recommend follow-up with cross-sectional imaging. Procedure Note Waldo Tomlinson MD - 01/25/[address] [place] [address] EXAM: PELVIS - SINGLE VIEW CLINICAL STATEMENT: [...] 4:25 PM Narrative 01/25/2025 9:13 PM [address] [place] [id number] [place] [address] Examination: Chest x-ray 1 view Exam time: [...] Procedure Note Daren Waters MD - 01/25/2025 [place] [address] [address] [place] [address] [address] Examination: Chest x-ray 1 view Exam time: [...] PM CDT) 01/25/2025 3:33 PM CDT Narrative [facility] - 01/26/2025 9:34 AM CDT [place] [address] [address] [address] Test Date: 2025-01-25 Pat Name: MARVIN VELA Department: 3 Room: EXAM 5 Gender: Male Addressograph Operator: : 1945 Requested By: WOODROW DOOLEY Order Number: [id number] Reading MD: Brandon Chavez Measurements Intervals [place] Rate: 116 P: 75 IN: 119 QRS: 65 QRSD: 80 T: 58 QT: 345 QTc: 480 Interpretive Statements SINUS TACHYCARDIA WITH SHORT IN INTERVAL WITH FREQUENT SUPRAVENTRICULAR PREMATURE COMPLEXES ABNORMAL RHYTHM ECG noise Procedure Note Brandon Chavez MD - 01/26/2025 [facility] [address] [facility] [place] [address] Test Date: 2025-01-25 Pat Name: MARVIN VELA Department: 3 Room: EXAM 5 Gender: Male Addressograph Operator: : 1945 Requested By: WOODROW DOOLEY Order Number: [id number] Reading MD: Brandon Chavez Measurements Intervals [place] Rate: 116 P: 75 IN: 119 QRS: 65 QRSD: 80 T: 58 QT: 345 QTc: 480 Interpretive Statements SINUS TACHYCARDIA WITH SHORT IN INTERVAL WITH FREQUENT SUPRAVENTRICULAR PREMATURE COMPLEXES ABNORMAL RHYTHM ECG noise Woodrow Dooley MD ECG ORDERABLES Final Resul t Performing Organization Address [facility] de Phone Number [facility] * (ABNORMAL) PRO-BRAIN NATRIURETIC PEPTIDE (01/25/2025 3:13 PM CDT) PRO-B TYPE NATRIURETIC PEPTIDE 1,018(H) <450 PG/ML 01/25/2025 3:59 PM CDT [facility] Comment: CUT POINTS ESTABLISHED BY INTERNATIONAL [...] LABORATORY Final Resul t Performing Organization Address City/[facility] Co de Phone Number [facility] [address] [place] [id number], * PROTIME/INR, VENOUS (01/25/2025 3:13 PM CDT) PROTIME 11.6 9.4 - 12.5 SEC 01/25/2025 3:28 PM CDT [facility] INR 1.0 0.8 - 1.0 01/25/2025 3:28 PM CDT [facility] 01/25/2025 3:13 PM CDT Woodrow Dooley MD LABORATORY Final Resul t Performing Organization Address City/[facility] Co de Phone Number [facility] [place] [address], * (ABNORMAL) COMPREHENSIVE METABOLIC PANEL (01/25/2025 3:13 PM CDT) SODIUM S/P/B 145 136 - 145 MMOL/L 01/25/2025 3:59 PM CDT [facility] POTASSIUM S/P/B 3.9 3.5 - 5.1 MMOL/L 01/25/2025 3:59 PM CDT [facility] CHLORIDE S/P/B 104 98 - 107 MMOL/L 01/25/2025 3:59 PM CDT [facility] CO2 17.2(L) 21.0 - 32.0 MMOL/L 01/25/2025 3:59 PM CDT [facility] GLUCOSE 437(H) 70 - 99 MG/DL 01/25/2025 3:59 PM CDT [facility] Comment: FASTING GLUCOSE 100 TO 125 MG/DL IS CONSISTENT WITH IMPAIRED FASTING GLUCOSE. FASTING GLUCOSE >125 MG/DL IS CONSISTENT WITH DIABETES. RANDOM GLUCOSE >200 MG/DL WITH HYPERGLYCEMIC SYMPTOMS IS CONSISTENT WITH DIABETES. PER ADA GUIDELINES BUN 42(H) 6 - 24 MG/DL 01/25/2025 3:59 PM CDT [facility] CREATININE S/P/B 1.56(H) 0.70 - 1.30 MG/DL 01/25/2025 3:59 PM CDT [facility] CALCIUM S/P/B 9.7 8.4 - 10.5 MG/DL 01/25/2025 3:59 PM CDT [facility] BILIRUBIN TOTAL S/P/B 0.7 0.2 - 1.0 MG/DL 01/25/2025 3:59 PM CDT [facility] Comment: THIS ASSAY IS NOT RECOMMENDED FOR PATIENTS UNDERGOING TREATMENT WITH ELTROMBOPAG DUE TO THE POTENTIAL FOR FALSELY ELEVATED RESULTS. ALKALINE PHOSPHATASE S/P/B 72 45 - 115 U/L 01/25/2025 3:59 PM CDT [facility] AST 38(H) 15 - 37 U/L 01/25/2025 3:59 PM CDT [facility] ALT 36 16 - 63 U/L 01/25/2025 3:59 PM CDT [facility] TOTAL PROTEIN S/P/B 8.2 6.4 - 8.2 G/DL 01/25/2025 3:59 PM CDT [facility] ALBUMIN S/P/B 4.1 3.4 - 5.0 G/DL 01/25/2025 3:59 PM CDT [facility] ANION GAP 23.8(H) 5.0 - 15.0 MMOL/L 01/25/2025 3:59 PM T [facility] OSMOLALITY (CALC) 329 MOSM/KG 025 3:59 PM T [facility] Comment:REFERENCE RANGE NOT ESTABLISHED GFR ESTIMATE 45(L) >89 ML/MIN/1. 73 M2 01/25/2025 3:59 PM CDT [facility] GFR NOTES GFR REFERENCE S: 01/25/2025 3:59 PM T [facility] Comment: THE ESTIMATED GFR IS CALCULATED [...] Woodrow Dooley MD LABORATORY Final Resul t [facility] [address] [place] [address], * (ABNORMAL) CBC W/DIFF AUTOMATED (01/25/2025 3:13 PM CDT) WBC 7.69 4.00 - 10.80 x10'3/uL 01/25/2025 3:21 PM CDT [facility] RBC 5.16 4.50 - 6.10 x10'6/uL 01/25/2025 3:21 PM CDT [facility] HGB 15.3 13.0 - 18.0 G/DL 01/25/2025 3:21 PM CDT [facility] HCT 43.3 37.0 - 52.0 % 01/25/2025 3:21 PM CDT [facility] MCV 83.9 78.0 - 100.0 FL 01/25/2025 3:21 PM CDT [facility] MCH 29.7 27.0 - 31.0 PG 01/25/2025 3:21 PM CDT [facility] MCHC 35.3 33.0 - 36.0 G/DL 01/25/2025 3:21 PM CDT [facility] RDW 13.4 11.5 - 14.5 % 01/25/2025 3:21 PM CDT [facility] PLT 220 150 - 350 x10'3/uL 01/25/2025 3:21 PM CDT [facility] MPV 10.8(H) 7.4 - 10.4 FL 01/25/2025 3:21 PM CDT [facility] CBC COMMENT NORMAL REFERENCE RANGE NOT ESTABLISHED FOR THE PROPORTIONAL LEUKOCYTE DIFFERENTIAL. 01/25/2025 3:21 PM CDT [facility] NEUTROPHILS % 77.6 % 01/25/2025 3:21 PM CDT [facility] LYMPHOCYTES % 9.2 % 01/25/2025 3:21 PM CDT [facility] MONOCYTES % 12.7 % 01/25/2025 3:21 PM CDT [facility] EOSINOPHILS % 0.0 % 01/25/2025 3:21 PM CDT [facility] BASOPHILS % 0.1 % 01/25/2025 3:21 PM CDT [facility] IMMATURE GRANS % 0.4 % 01/26/20 3:21 PM CDT [facility] NRBC % 0.0 % 01/25/2025 3:21 PM CDT [facility] ABS. NEUTROPHILS 5.96 1.60 - 8.30 x10'3/uL 01/25/2025 3:21 PM CDT [facility] ABS. LYMPHOCYTES 0.71(L) 0.80 - 4.70 x10'3/uL 01/25/2025 3:21 PM CDT [facility] ABS. MONOCYTES 0.98 0.00 - 1.50 x10'3/uL 01/25/2025 3:21 PM CDT [facility] ABS. EOSINOPHILS 0.00 0.00 - 0.40 x10'3/uL 01/25/2025 3:21 PM CDT [facility] ABS. BASOPHILS 0.01 0.00 - 0.20 x10'3/uL 01/25/2025 3:21 PM CDT [facility] ABS. IMMATURE GRANULOCYTES 0.03 0.00 - 0.03 x10'3/uL 01/25/2025 3:21 PM CDT [facility] ABS. NUCLEATED RBC'S 0.00 0.00 - 0.01 x10'3/uL 01/25/2025 3:21 PM CDT [facility] 01/25/2025 3:13 PM CDT us Woodrow Dooley MD LABORATORY Final Resul t Performing Organization Address City/[facility] Co de Phone Number [facility] [address] [place] [address], * (ABNORMAL) THYROID STIM HORMONE, TSH (01/25/2025 3:13 PM CDT) TSH 0.098(L) 0.358 - 3.740 uIU/ML 01/25/2025 3:59 PM CDT [facility] Comment: ASSAY PERFORMED BY CHEMILUMINESCENT IMMUNOASSAY METHODOLOGY USING Regroup Therapy REAGENT. PATIENT RESULTS DETERMINED BY ASSAYS FROM DIFFERENT MANUFACTURERS AND/OR BY DIFFERENT METHODS MAY NOT BE COMPARABLE. 01/25/2025 3:13 PM CDT us Woodrow Dooley MD LABORATORY Final Resul t Performing Organization Address City/[facility] Co de Phone Number [facility] [address] [place] [address], * PHOSPHORUS, INORGANIC PHOSPHATE (01/25/2025 3:13 PM CDT) PHOSPHORUS 3.9 2.6 - 4.7 MG/DL 01/25/2025 5:31 PM CDT [facility] 01/25/2025 3:13 PM CDT us Woodrow Dooley MD LABORATORY Final Resul t Performing Organization Address City/[facility] Co de Phone Number [facility] [address] [place] [address], * MAGNESIUM (01/25/2025 3:13 PM CDT) Only the most recent of2 resultswithin the time period is included. MAGNESIUM 2.0 1.8 - 2.4 MG/DL 01/25/2025 5:31 PM CDT [facility] 01/25/2025 3:13 PM CDT us Woodrow Dooley MD LABORATORY Final Resul t Performing Organization Address [facility] [place] [address], * (ABNORMAL) SALICYLATE (01/25/2025 3:13 PM CDT) SALICYLATES 2.2(L) 2.8 - 20.0 MG/DL 01/25/2025 3:59 PM CDT [facility] 01/25/2025 3:13 PM CDT us Woodrow Dooley MD LABORATORY Final Resul t Performing Organization Address [facility] Co de Phone Number [facility] [address] [place] [address], * ETHANOL (01/25/2025 3:13 PM CDT) ALCOHOL S/P/B <0.003 <0.003 G/DL 01/25/2025 3:59 PM CDT [facility] 01/25/2025 3:13 PM CDT us Woodrow Dooley MD LABORATORY Final Resul t Performing Organization Address City/[facility] Co de Phone Number [facility] [address] [place] [address], * (ABNORMAL) CK (CPK) (01/25/2025 3:13 PM CDT) CPK 383(H) 39 - 308 U/L 01/25/2025 3:59 PM CDT [facility] 01/25/2025 3:13 PM CDT Woodrow Dooley MD LABORATORY Final Resul t Performing Organization Address City/[facility]/ZIP Co de Phone Number [facility] [place] [address], * (ABNORMAL) ACETAMINOPHEN (01/25/2025 3:13 PM CDT) ACETAMINOPHEN S/P/B 0.0(L) 10.0 - 30.0 MCG/ML 01/25/2025 3:59 PM CDT [facility] 01/25/2025 3:13 PM CDT Woodrow Dooley MD LABORATORY Final Resul t Performing Organization Address [facility] Co de Phone Number [facility] [address] [place] [address], * Critical Care (01/25/2025 2:44 PM CDT) [...] 186 <200 MG/DL 08/14/2023 1:11 PM CDT [facility] Comment: THE NATIONAL LIPID ASSOCIATION AND THE NATIONAL CHOLESTEROL EDUCATION PROGRAM (NCEP) HAVE SET THE FOLLOWING GUIDELINES FOR TOTAL CHOLESTEROL IN ADULTS AGES 18 AND UP. DESIRABLE: <200 BORDERLINE HIGH: 200-239 HIGH: > OR = 240 TRIGLYCERIDES 314(H) <150 MG/DL 08/14/2023 1:11 PM CDT [facility] Comment: THE NATIONAL LIPID ASSOCIATION AND THE NATIONAL CHOLESTEROL EDUCATION PROGA (NCEP) HAVE SET THE FOLLOWING GUIDELINES FOR TRIGLYCERIDES IN ADULTS AGES 18 AND UP. NORMAL: <150 BORDERLINE HIGH: 150 TO 199 HIGH: 200 TO 499 VERY HIGH: >499 HDL 43 >39 MG/DL 08/14/2023 1:11 PM CDT [facility] Comment: THE NATIONAL LIPID ASSOCIATION AND THE NATIONAL CHOLESTEROL EDUCATION PROGAM (NCEP) HAVE SET THE FOLLOWING GUIDELINES FOR HDL CHOLESTEROL IN ADULTS AGES 18 AND UP. MALES: >39 FEMALES: >49 LDL-C 80 <100 MG/DL 08/14/2023 1:11 PM CDT [facility] Comment: THE NATIONAL LIP[employer]OCIATION AND THE NATIONAL CHOLESTEROL EDUCATION PROGA (NCEP) HAVE SET THE FOLLOWING GUIDELINES FOR LDL CHOLESTEROL IN ADULTS AGES 18 AND UP. DESIRABLE: <100 ABOVE DESIRABLE: 100 TO 129 BORDERLINE HIGH: 130 TO 159 HIGH: 160 TO 189 VERY HIGH: >189 VLDL CALCULATION 63 MG/DL 08/14/20 23 1:11 PM CDT [facility] Comment:REFERENCE RANGE NOT ESTABLISHED CHOL/HDL RATIO 4.3 08/14/2023 1:11 PM CDT [facility] Comment:REFERENCE RANGE NOT ESTABLISHED LDL/HDL 1.9 08/14/2023 1:11 PM CDT [facility] Comment:REFERENCE RANGE NOT ESTABLISHED NON HDL CHOLESTEROL 143 MG/DL 08/14/2023 1:11 PM CDT [facility] Comment:REFERENCE RANGE NOT ESTABLISHED 08/14/2023 12:4 0 PM CDT Fam Miller MD LABORATORY Final Result [facility] [address] [place] [address], from Last 3 Months or Most Recently Relevant to Health Maintenance Insurance MEDICARE Care Teams Pallet Stone Inserter Relationship Specialty Start Date End Date Fam Miller MD [address] [place] [phone] PCP - General INTERNAL MEDICINE 12/25/22 Kellie Fermin, [facility]- [address] [place] [id number] Nurse Practitioner NURSE PRACTITIONER ADULT HEALTH 02/14/24 Fredrick Camarena MD [address] [facility] [address] [place] [address] Physician INTERVENTIONAL CARDIOLOGY 01/02/25
[2025-02-23] MEDS: MAGNESIUM OXIDE 400 MG TABLET PO (18:05)
== END 2025-02-23 19:00 | disposition home or self-care (01) ==
PROVIDERS: Emergency Provider Family Medicine; PCP Internal Medicine
DX: R41.82 Altered mental status, unspecified (principal); E16.2 Hypoglycemia, unspecified; I10 Essential (primary) hypertension; I25.10 Atherosclerotic heart disease of native coronary artery without angina pectoris; Z87.891 Personal history of nicotine dependence
CPT/HCPCS: 36415; 70450; 70496; 70498; 80053; 82948; 83735; 85025; 93005; 96360; 96361; 99284; A9270; J7042; Q9967